=== PATIENT | female | born 1965 | race Caucasian/White ===

== ENCOUNTER 2018-02-18 07:00 | Emergency (ER) | payer MEDICAID, SELFPAY ==
[2018-02-18 07:12] VITALS: BP 158/85
[2018-02-18] MEDS ORDERED: Ondansetron 4 MG/2 ML SDV IVPUSH ONE (07:16)
[2018-02-18] MEDS ORDERED: Sodium Chloride 0.9% 10 ML Syringe FLUSH PRN (07:16)
--- NOTE | 2018-02-18 07:23 | EDM.PDOC ---
ED HPI GENERAL MEDICAL PROBLEM - General Chief Complaint: Neuro Symptoms/Deficits Stated Complaint: [facility] Time Seen by Provider: 02/18/18 07:09 Source of Information: Reports: Patient, EMS History Limitations: Reports: No Limitations - History of Present Illness INITIAL COMMENTS - FREE TEXT/NARRATIVE: The patient presents by [facility] for a seizure. She has a known history of seizures. She had a brain tumor that was removed many years ago. She is on keppra and dilantin. She has been having an upset stomach and diarrhea the past few days and she may have missed a few doses of her medications. She had a brief seizure last night. This morning she felt like she may have another seizure so she pushed her medical alert button to get some help. She did not have a seizure and EMS brought her in. She has some nausea this morning and she vomited. She has some mild left hand weakness but that is normal after her seizures. She has a headache. She has no fever but she does have chills. She has nausea. She has no abdominal pain. She has no dysuria, chest pain or shortness of breath. Onset: Sudden Duration: Day(s): (Last nigh) Location: Reports: Generalized Severity: Moderate Improves with: Reports: None Worsens with: Reports: None Associated Symptoms: Reports: Fever/Chills, Headaches, Nausea/Vomiting. Denies : Chest Pain, Cough, Shortness of Breath Headache Pain Score (Numeric/FACES): 10 - Related Data Allergies Allergy/AdvReac Type Severity Reaction Status Date / Time codeine Allergy Rash Verified 02/18/18 07:12 Home Meds: Home Meds LORazepam [Ativan] 1 mg PO ASDIRECTED PRN 05/03/16 [History] Furosemide [Lasix] 40 mg PO DAILY 05/07/16 [History] Levothyroxine 75 mcg PO ACBREAKFAST 05/07/16 [History] LORazepam [Ativan] 1 mg PO Q8H PRN #20 tab 02/18/18 [Rx] Ondansetron [Zofran ODT] 4 mg PO Q6H PRN #20 tab.dis 02/18/18 [Rx] Phenytoin Sodium Extended [Dilantin] 100 mg PO DAILY 02/18/18 [History] Phenytoin Sodium Extended [Dilantin] 200 mg PO BEDTIME 02/18/18 [History] levETIRAcetam [Keppra] 1,500 mg PO BID 02/18/18 [History] Past Medical History Other Cardiovascular History: Pt on lasix. Respiratory History: Reports: Sleep Apnea Other Respiratory History: Pt on CPAP machine. Dtr says settings are 2.0. 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 Endocrine/Metabolic History: Reports: Hypothyroidism Other Endocrine/Metabolic History: Levothyroxine; pt non-compliant. Oncologic (Cancer) History: Reports: Brain Other Oncologic History: Brain resection 1995. - Past Surgical History Head Surgeries/Procedures: Reports: Other (See Below) Female Surgical History: Reports: Section Social & Family History - Family History Oncologic: Reports: Breast - Living Situation & Occupation Living situation: Reports: Single, Alone Occupation: Disabled ED ROS GENERAL - Review of Systems Review Of Systems: See Below Constitutional: Reports: Chills. Denies: Fever HEENT: Reports: No Symptoms Respiratory: Reports: No Symptoms Cardiovascular: Reports: No Symptoms Endocrine: Reports: No Symptoms GI/Abdominal: Reports: Diarrhea, Nausea, Vomiting. Denies: Abdominal Pain : Reports: No Symptoms Musculoskeletal: Reports: No Symptoms Skin: Reports: No Symptoms Neurological: Reports: Headache - Physical Exam Exam: See Below Exam Limited By: No Limitations General Appearance: Alert, No Apparent Distress Ears: Normal External Exam Nose: Normal Inspection Head Exam: Atraumatic, Normocephalic Neck: Normal Inspection Respiratory/Chest: No Respiratory Distress, Lungs Clear, Normal Breath Sounds Cardiovascular: Regular Rate, Rhythm, No Edema, No Murmur GI/Abdominal: Soft, Non-Tender, No Organomegaly, No Mass Neuro Exam (Abbreviated): Alert, Oriented, No Motor/Sensory Deficits Course - Vital Signs Last Recorded V/S: Last Vital Signs Temp 98.0 F 02/18/18 07:00 Pulse 85 02/18/18 07:00 Resp 20 02/18/18 07:00 BP 158/85 H 02/18/18 07:00 Pulse Ox 99 02/18/18 07:00 - Orders/Labs/Meds Orders: Active Orders 24 hr Category Date Time Status Cardiac Monitoring [RC] . DIRECTED Care 02/18/18 07:16 Active Peripheral IV Care [RC] . DIRECTED Care 02/18/18 07:16 Active Sodium Chloride 0.9% [Normal Saline] 1,000 ml Med 02/18/18 07:30 Active IV .BOLUS Sodium Chloride 0.9% [Saline Flush] Med 02/18/18 07:16 Active 10 ml FLUSH ASDIRECTED PRN ED Antiemetic Medication Reflex [OM.PC] Stat Oth 02/18/18 07:16 Ordered Peripheral IV Insertion Adult [OM.PC] Stat Ot 02/18/18 07:16 Ordered Medication Orders Sodium Chloride (Normal Saline) 1,000 mls @ 1,000 mls/hr IV .BOLUS JESSICA Last Admin: 02/18/18 07:42 Dose: 1,000 mls/hr Sodium Chloride (Saline Flush) 10 ml FLUSH ASDIRECTED PRN PRN Reason: Keep Vein Open Last Admin: 02/18/18 07:35 Dose: 10 ml Labs: Laboratory Tests 02/18/18 02/18/18 Range/Units 08:15 08:15 WBC 10.04 (3.98-10.04) K/mm3 RBC 4.58 (3.98-5.22) M/mm3 Hgb 14.3 (11.2-15.7) gm/L Hct 41.8 (34.1-44.9) % MCV 91.3 (79.4-94.8) fl MCH 31.2 (25.6-32.2) pg MCHC 34.2 (32.2-35.5) g/dl RDW Std Deviation 45.1 (36.4-46.3) fL Plt Count 250 (182-369) K/mm3 MPV 8.7 L (9.4-12.3) fl Neut % (Auto) 73.9 H (34.0-71.1) % Lymph % (Auto) 18.9 L (19.3-51.7) % [place] % (Auto) 5.8 (4.7-12.5) % Eos % (Auto) 0.9 (0.7-5.8) Baso % (Auto) 0.2 (0.1-1.2) % Neut # (Auto) 7.42 H (1.56-6.13) K/mm3 Lymph # (Auto) 1.90 (1.18-3.74) K/mm3 [place] # (Auto) 0.58 H (0.24-0.36) K/mm3 Eos # (Auto) 0.09 (0.04-0.36) K/mm3 Baso # (Auto) 0.02 (0.01-0.08) K/mm3 Sodium 139 (136-145) mEq/L Potassium 4.5 (3.5-5.1) mEq/L Chloride 104 (98-107) mEq/L Carbon Dioxide 24 (21-32) mEq/L Anion Gap 15.5 H (5-15) BUN 17 (7-18) mg/dL Creatinine 0.9 (0.55-1.02) mg/dL Est Cr Clr Drug Dosing 57.83 mL/min Estimated GFR (MDRD) > 60 (>60) mL/min BUN/Creatinine Ratio 18.9 H (14-18) Glucose 134 H (74-106) mg/dL Calcium 8.6 (8.5-10.1) mg/dL Total Bilirubin 0.4 (0.2-1.0) mg/dL AST 25 (15-37) U/L ALT 26 (14-59) U/L Alkaline Phosphatase 117 H (46-116) U/L Total Protein 6.4 (6.4-8.2) g/dl Albumin 2.9 L (3.4-5.0) g/dl Globulin 3.5 gm/dL Albumin/Globulin Ratio 0.8 L (1-2) Lipase 76 (73-393) U/L Phenytoin 2.1 L (10.0-20.0) ug/mL Meds: Medications Generic Name Dose Route Start Last Admin Trade Name Freq PRN Reason Stop Dose Admin Sodium Chloride 1,000 mls @ 1,000 mls/hr 02/18/18 07:30 02/18/18 07:42 Normal Saline IV 1,000 mls/hr .BOLUS JESSICA Administration Sodium Chloride 10 ml 02/18/18 07:16 02/18/18 07:35 Saline Flush FLUSH 10 ml ASDIRECTED PRN Administration Keep Vein Open Discontinued Medications Generic Name Dose Route Start Last Admin Trade Name Freq PRN Reason Stop Dose Admin Lorazepam 1 mg 02/18/18 08:50 02/18/18 08:55 Ativan IVPUSH 02/18/18 08:51 1 mg ONETIME ONE Administration Ondansetron HCl 4 mg 02/18/18 07:16 02/18/18 07:40 Zofran IVPUSH 02/18/18 07:17 4 mg ONETIME ONE Administration - Re-Assessments/Exams Free Text/Narrative Re-Assessment/Exam: 02/18/18 07:23 I ordered an IV NS 1L bolus, zofran 4mg IV, labs and a UA. 02/18/18 09:11 Her CBC looks good. Her anion gap was slightly elevated at 15.5. Her glucose was elevated at 134. Her lipase was negative. Her dilantin level was 2.1. I will give her an extra dose of dilantin here. Departure - Departure Time of Disposition: 09:15 Disposition: Home, Self-Care 01 Condition: Good Clinical Impression: Seizure disorder, Seizure Nausea and vomiting Qualifiers: Vomiting type: unspecified Vomiting Intractability: unspecified Qualified Code( s): R11.2 - Nausea with vomiting, unspecified Diarrhea Qualifiers: Diarrhea type: unspecified type Qualified Code(s): R19.7 - Diarrhea, unspecified - Discharge Information Prescriptions: LORazepam [Ativan] 1 mg PO Q8H PRN #20 tab PRN Reason: Seizures Ondansetron [Zofran ODT] 4 mg PO Q6H PRN #20 tab.dis PRN Reason: Nausea\vomiting Referrals: Vicky Salazar, [facility] [Primary Care Provider] - 1 Week Forms: ED Department Discharge Additional Instructions: Take your medication as prescribed. Take zofran every 6 hours as needed for nausea and vomiting. I have refilled your ativan. Follow up with Yumiko Salazar this week. Please return if you are worse. - My Orders Last 24 Hours: My Active Orders 02/18/18 07:16 Cardiac Monitoring [RC] . DIRECTED Peripheral IV Care [RC] . DIRECTED Sodium Chloride 0.9% [Saline Flush] 10 ml FLUSH ASDIRECTED PRN ED Antiemetic Medication Reflex [OM.PC] Stat Peripheral IV Insertion Adult [OM.PC] Stat 02/18/18 07:30 Sodium Chloride 0.9% [Normal Saline] 1,000 ml IV .BOLUS - Assessment/Plan Last 24 Hours: My Active Orders 02/18/18 07:16 Cardiac Monitoring [RC] . DIRECTED Peripheral IV Care [RC] . DIRECTED Sodium Chloride 0.9% [Saline Flush] 10 ml FLUSH ASDIRECTED PRN ED Antiemetic Medication Reflex [OM.PC] Stat Peripheral IV Insertion Adult [OM.PC] Stat 02/18/18 07:30 Sodium Chloride 0.9% [Normal Saline] 1,000 ml IV .BOLUS
[2018-02-18] MEDS ORDERED: Sodium Chloride 0.9% 1,000 ML IV SCH (07:30)
[2018-02-18] MEDS ORDERED: LORazepam 2 MG/ML SDV IVPUSH ONE (08:50)
[2018-02-18] MEDS ORDERED: Phenytoin 100 MG Cap.ER PO ONE (09:12)
== END 2018-02-18 09:50 | disposition home or self-care (01) ==
LOC: JD.ED 07:00 → SUPCPDRO 07:00 → JD.ED 09:50
DX: G40.909 Epilepsy, unspecified, not intractable, without status epilepticus (principal); R11.2 Nausea with vomiting, unspecified; R19.7 Diarrhea, unspecified; E03.9 Hypothyroidism, unspecified; Z88.5 Allergy status to narcotic agent; Z79.899 Other long term (current) drug therapy
CPT/HCPCS: 36415; 80053; 80185; 83690; 85025; 96361; 96374; 96375; 99285; A9270; J2060; J2405; J7040; J7050

== ENCOUNTER 2018-02-20 16:47 | Inpatient (IN) | payer MEDICAID ==
[2018-02-20] MEDS ORDERED: Sodium Chloride 0.9% 10 ML Syringe FLUSH PRN (17:23)
[2018-02-20] MEDS ORDERED: LORazepam 2 MG/ML SDV IVPUSH ONE ×2 (17:23→22:50)
[2018-02-20] MEDS ORDERED: Sodium Chloride 0.9% 1,000 ML IV ONE (17:24)
--- NOTE | 2018-02-20 17:30 | EDM.PDOC ---
ED HPI GENERAL MEDICAL PROBLEM - General Chief Complaint: Neurological Problem Stated Complaint: [facility] Time Seen by Provider: 02/20/18 17:27 Source of Information: Reports: Patient History Limitations: Reports: No Limitations - History of Present Illness INITIAL COMMENTS - FREE TEXT/NARRATIVE: 52-year-old female arrives via [facility] ambulance service after having a seizure today. Patient reportedly had a grand mal seizure at home. Estimates a list of last less than a minute. She reports a slow normal seizure for her. 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 She is currently on Keppra and Dilantin, states she's been taking this as prescribed. She reports current symptoms of headache. Denies any fevers, chills, nausea, vomiting or diarrhea. Patient reports paralysis of her left arm. 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 She is left-handed. She states that she cannot take care of herself at home due to the paralysis. Patient was seen in the ER yesterday following a seiz Her workup was from unremarkable. Dilantin level is low at 2.1. She was discharged home, instructed to follow-up with her primary care provider. She sinus followed up with her primary care provider. Patient does not currently seen a neurologist. Patient reports that she was nonpermanent by herself. Sounds as if she has home health come and help her on occasion Family is currently in [place].. Headache Pain Score (Numeric/FACES): 7 - Related Data Allergies Allergy/AdvReac Type Severity Reaction Status Date / Time codeine Allergy Rash Verified 02/18/18 07:12 Home Meds: Home Meds LORazepam [Ativan] 1 mg PO ASDIRECTED PRN 05/03/16 [History] Furosemide [Lasix] 40 mg PO DAILY 05/07/16 [History] Levothyroxine 75 mcg PO ACBREAKFAST 05/07/16 [History] LORazepam [Ativan] 1 mg PO Q8H PRN #20 tab 02/18/18 [Rx] Phenytoin Sodium Extended [Dilantin] 100 mg PO DAILY 02/18/18 [History] Phenytoin Sodium Extended [Dilantin] 200 mg PO BEDTIME 02/18/18 [History] levETIRAcetam [Keppra] 1,500 mg PO BID 02/18/18 [History] Past Medical History HEENT History: Reports: Impaired Vision Other HEENT History: wears eyeglasses. Other Cardiovascular History: Pt on lasix. Respiratory History: Reports: Sleep Apnea Other Respiratory History: Pt on CPAP machine. Dtr says settings are 2.0. 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 Psychiatric History: Reports: Depression Endocrine/Metabolic History: Reports: Hypothyroidism Other Endocrine/Metabolic History: Levothyroxine; pt non-compliant. Oncologic (Cancer) History: Reports: Brain Other Oncologic History: Brain resection 1995. - Infectious Disease History Infectious Disease History: Reports: Chicken Pox, Shingles - Past Surgical History Other HEENT Surgeries/Procedures: Pt wears reading glasses at home. GI Surgical History: Reports: Cholecystectomy Female Surgical History: Reports: Section Other Musculoskeletal Surgeries/Procedures:: L sided weakness after seizures. Social & Family History - Family History Family Medical History: Noncontributory Oncologic: Reports: Breast - Tobacco Use Smoking Status *Q: Never Smoker - Caffeine Use Caffeine Use: Reports: Coffee - Recreational Drug Use Recreational Drug Use: No - Living Situation & Occupation Living situation: Reports: Single, Alone Occupation: Disabled ED ROS GENERAL - Review of Systems Review Of Systems: See Below Constitutional: Denies: Fever, Chills GI/Abdominal: Denies: Nausea, Vomiting Neurological: Reports: Headache, Seizure, Difficulty Walking - Physical Exam Exam: See Below Exam Limited By: No Limitations General Appearance: Alert, WD/WN, No Apparent Distress, Obese Eye Exam: Bilateral Eye: Normal Inspection, PERRL Ears: Normal External Exam Nose: Normal Inspection Throat/Mouth: Normal Inspection, Normal Voice, No Airway Compromise Respiratory/Chest: No Respiratory Distress, Lungs Clear, Normal Breath Sounds Cardiovascular: Normal Peripheral Pulses, Regular Rate, Rhythm, No Murmur Neuro Exam (Abbreviated): Alert, Oriented, Normal Cognition, 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 DIRECTED Care 02/20/18 17:24 Active Sodium Chloride 0.9% [Saline Flush] Med 02/20/18 17:23 Active 10 ml FLUSH ASDIRECTED PRN Peripheral IV Insertion Adult [OM.PC] Routine Oth 02/20/18 17:23 Ordered Medication Orders Sodium Chloride (Saline Flush) 10 ml FLUSH ASDIRECTED PRN PRN Reason: Keep Vein Open Last Admin: 02/20/18 17:48 Dose: 10 ml Labs: Laboratory Tests 02/20/18 02/20/18 Range/Units 18:09 18:09 WBC 12.47 H (3.98-10.04) K/mm3 RBC 4.63 (3.98-5.22) M/mm3 Hgb 14.5 (11.2-15.7) gm/L Hct 42.6 (34.1-44.9) % MCV 92.0 (79.4-94.8) fl MCH 31.3 (25.6-32.2) pg MCHC 34.0 (32.2-35.5) g/dl RDW Std Deviation 44.8 (36.4-46.3) fL Plt Count 263 (182-369) K/mm3 MPV 8.8 L (9.4-12.3) fl Neut % (Auto) 68.1 (34.0-71.1) % Lymph % (Auto) 22.1 (19.3-51.7) % [place] % (Auto) 8.3 (4.7-12.5) % Eos % (Auto) 1.0 (0.7-5.8) Baso % (Auto) 0.2 (0.1-1.2) % Neut # (Auto) 8.49 H (1.56-6.13) K/mm3 Lymph # (Auto) 2.75 (1.18-3.74) K/mm3 [place] # (Auto) 1.03 H (0.24-0.36) K/mm3 Eos # (Auto) 0.13 (0.04-0.36) K/mm3 Baso # (Auto) 0.03 (0.01-0.08) K/mm3 Manual Slide Review Normal smear Sodium 138 (136-145) mEq/L Potassium 4.4 (3.5-5.1) mEq/L Chloride 104 (98-107) mEq/L Carbon Dioxide 24 (21-32) mEq/L Anion Gap 14.4 (5-15) BUN 12 (7-18) mg/dL Creatinine 0.8 (0.55-1.02) mg/dL Est Cr Clr Drug Dosing 65.06 mL/min Estimated GFR (MDRD) > 60 (>60) mL/min BUN/Creatinine Ratio 15.0 (14-18) Glucose 126 H (74-106) mg/dL Calcium 8.9 (8.5-10.1) mg/dL Magnesium 1.8 (1.8-2.4) mg/dl Total Bilirubin 0.4 (0.2-1.0) mg/dL AST 21 (15-37) U/L ALT 29 (14-59) U/L Alkaline Phosphatase 111 (46-116) U/L Total Protein 7.2 (6.4-8.2) g/dl Albumin 3.0 L (3.4-5.0) g/dl Globulin 4.2 gm/dL Albumin/Globulin Ratio 0.7 L (1-2) Meds: Medications Generic Name Dose Route Start Last Admin Trade Name Isrrael PRN Reason Stop Dose Admin Sodium Chloride 10 ml 02/20/18 17:23 02/20/18 17:48 Saline Flush FLUSH 10 ml ASDIRECTED PRN Administration Keep Vein Open Discontinued Medications Generic Name Dose Route Start Last Admin Trade Name Freq PRN Reason Stop Dose Admin Sodium Chloride 1,000 mls @ 999 mls/hr 02/20/18 17:24 02/20/18 17:45 Normal Saline IV 02/20/18 18:24 999 mls/hr ONETIME ONE Administration Levetiracetam 1,500 mg/ Sodium 115 mls @ 400 mls/hr 02/20/18 22:47 02/20/18 23:14 Chloride IV 02/20/18 23:01 400 mls/hr ONETIME ONE Administration Phenytoin Sodium 200 mg/ 104 mls @ 416 mls/hr 02/20/18 22:57 Sodium Chloride IV 02/20/18 22:58 ONETIME ONE Ketorolac Tromethamine 15 mg 02/20/18 18:36 02/20/18 18:44 Toradol IVPUSH 02/20/18 18:37 15 mg ONETIME ONE Administration Lorazepam 1 mg 02/20/18 17:23 02/20/18 17:47 Ativan IVPUSH 02/20/18 17:24 1 mg ONETIME ONE Administration Lorazepam 1 mg 02/20/18 22:50 02/20/18 23:14 Ativan IVPUSH 02/20/18 22:51 1 mg ONETIME ONE Administration - Re-Assessments/Exams Free Text/Narrative Re-Assessment/Exam: 02/20/18 21:26 I asked nursing staff to get patient up to walk. They were able to get her to use the commode. She shuffled cautiously. Do not use her left hand but was able to flex and extend her left arm. I spoke with Dr. Cates, hospitalist extrusion die corrector, recommended transfer to [facility] in [place] due to concerns over length of stay with previous visits as well as recommendation for a neurology consult. 02/20/18 23:19 The patient has not had a seizure since entering the ER. She has been resting comfortably. Her headache is resolved. I spoke with Dr. Phan, hospitalist , and Dr. Knowles, neurologist, at [facility] in [place]. Both these providers did not feel that the patient would get\ any additional benefits by coming to [place] and felt that admission at our hospital would be appropriate. Recommended giving her Keppra and Dilantin IV she will tolerated with her recent vomiting diarrhea. Also recommended giving additional 1 mg IV Ativan. spoke with Dr. Jacobs, he agrees the admission. Patient will be admitted for her Benji's paralysis. Departure - Departure Time of Disposition: 23:21 Disposition: Admitted As Inpatient 66 Condition: Fair Clinical Impression: Seizure disorder, Morbid obesity, Benji's paralysis - Discharge Information Referrals: Vicky Salazar NP [Primary Care Provider] - Forms: ED Department Discharge Additional Instructions: Patient be admitted to [facility] under Dr. Cates for her Benji's paralysis. - My Orders Last 24 Hours: My Active Orders 02/20/18 17:23 Sodium Chloride 0.9% [Saline Flush] 10 ml FLUSH ASDIRECTED PRN Peripheral IV Insertion Adult [OM.PC] Routine 02/20/18 17:24 Peripheral IV Care [RC] . DIRECTED - Assessment/Plan Last 24 Hours: My Active Orders 02/20/18 17:23 Sodium Chloride 0.9% [Saline Flush] 10 ml FLUSH ASDIRECTED PRN Peripheral IV Insertion Adult [OM.PC] Routine 02/20/18 17:24 Peripheral IV Care [RC] . DIRECTED
[2018-02-20] MEDS ORDERED: Ketorolac 15 MG/ML SDV IVPUSH ONE (18:36)
[2018-02-20] MEDS ORDERED: levETIRAcetam 1,500 MG in Sodium Chloride 0.9% 100 ML IV ONE (22:47)
[2018-02-20] MEDS ORDERED: SODIUM CHLORIDE 0.9% IV ONE (22:57)
[2018-02-20] MEDS ORDERED: PHENYTOIN IV ONE (22:57)
--- NOTE | 2018-02-20 23:01 | PCM.HP ---
H&P History of Present Illness - General Date of Service: 02/20/18 Admit Problem/Dx: Seizure Disorder Source of Information: Patient, Old Records, Provider, RN Notes Reviewed, Significant Other History Limitations: Reports: Physical Impairment - History of Present Illness Initial Comments - Free Text/Narative: This is a 52-year-old white female with past medical history of seizure disorder 2/2 Astrocytoma S/p Resection, Hypothyroidism, Hx/o Benji's Paralysis, Post Seizure Headaches , Chronic Pain Syndrome and Morbid Obesity who comes in for evaluation seizure attack today associated with a headache. She reports of a grand mal seizure at home that lasted less than a minute. She takes Keppra and Dilatin for maintenance medications. She states, she has been taking them everyday. Additionally, she reports having left upper extremity paralysis after seizures. Patient was seen in ED yesterday following an acute seizure. Her work up was notable for a low level of Dilatin at 2.1. She was treated accordingly and was told to follow up with her PCP. Patient lives alone and does not have any support at home. She has no family here around the area. Her initial workup in the emergency department shows a CBC remarkable for WBC of 12.47, MPV of 8.8, neutrophil counts of 8.49, and monocyte count of 1.03. Her chemistry is remarkable for glucose of 126, and albumin of 3. She is being admitted for treatment of acute seizure disorder and Benji's Paralysis. She is full code. Headache Pain Score (Numeric/FACES): 7 - Related Data Allergies/Adverse Reactions: Allergies Allergy/AdvReac Type Severity Reaction Status Date / Time latex Allergy Unknown Rash Verified 02/21/18 05:03 codeine Allergy Rash Verified 02/18/18 07:12 Home Medications: Home Meds Furosemide [Lasix] 40 mg PO DAILY 05/07/16 [History] Levothyroxine 75 mcg PO ACBREAKFAST 05/07/16 [History] Phenytoin Sodium Extended [Dilantin] 200 mg PO BEDTIME 02/18/18 [History] levETIRAcetam [Keppra] 1,500 mg PO BID 02/18/18 [History] LORazepam 1 mg PO BID PRN 02/21/18 [History] Past Medical History HEENT History: Reports: Impaired Vision Other HEENT History: wears eyeglasses. Other Cardiovascular History: Pt on lasix. Respiratory History: Reports: Sleep Apnea Other Respiratory History: Pt on CPAP machine. Dtr says settings are 2.0. 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 Psychiatric History: Reports: Depression Endocrine/Metabolic History: Reports: Hypothyroidism Other Endocrine/Metabolic History: Levothyroxine; pt non-compliant. Oncologic (Cancer) History: Reports: Brain Other Oncologic History: Brain resection 1995. - Infectious Disease History Infectious Disease History: Reports: Chicken Pox, Shingles - Past Surgical History Other HEENT Surgeries/Procedures: Pt wears reading glasses at home. GI Surgical History: Reports: Cholecystectomy Female Surgical History: Reports: Section Other Musculoskeletal Surgeries/Procedures:: L sided weakness after seizures. Social & Family History - Family History Family Medical History: Noncontributory Oncologic: Reports: Breast - Tobacco Use Smoking Status *Q: Never Smoker - Caffeine Use Caffeine Use: Reports: Coffee - Recreational Drug Use Recreational Drug Use: No - Living Situation & Occupation Living situation: Reports: Single, Alone Occupation: Disabled H&P Review of Systems - Review of Systems: Review Of Systems: See Below General: Reports: Weakness. Denies: Fever, Chills, Fatigue HEENT: Reports: No Symptoms Pulmonary: Reports: No Symptoms Cardiovascular: Denies: Chest Pain, Palpitations, Dyspnea on Exertion, Lightheadedness Gastrointestinal: Denies: Abdominal Pain, Decreased Appetite, Nausea, Vomiting Genitourinary: Reports: No Symptoms Musculoskeletal: Reports: No Symptoms Skin: Denies: Pallor, Diaphoresis, Bruising, Rash, Lesions Psychiatric: Denies: Depression, Anxiety, Agitation, Hallucinations Neurological: Reports: Headache, Seizure, Difficulty Walking, Weakness (left arm ), Gait Disturbance. Denies: Confusion, Dizziness, Numbness, Pre-Existing Deficit, Tingling, Tremors, Trouble Speaking, Change in Speech Hematologic/Lymphatic: Reports: No Symptoms Immunologic: Reports: No Symptoms Exam - Exam Exam: See Below - Vital Signs Vital Signs: Last Vital Signs Temp 37.2 C 02/20/18 16:54 Pulse 94 02/20/18 16:54 Resp 24 H 02/20/18 16:54 BP 155/89 H 02/20/18 16:54 Pulse Ox 97 02/20/18 16:54 Weight: 181.437 kg - Exam General: Alert, Oriented, Cooperative, Other (Morbidly Obese). No: Mild Distress HEENT: Conjunctiva Clear, EACs Clear, Hearing Intact, Mucosa Moist & [place], Nares Patent, Normal Nasal Septum, Posterior Pharynx Clear, Pupils Equal, Pupils Reactive, Other (right sided bald spot in her head ) Neck: Supple, Trachea Midline Lungs: Clear to Auscultation, Normal Respiratory Effort Cardiovascular: Regular Rate, Regular Rhythm GI/Abdominal Exam: Normal Bowel Sounds, Soft, Non-Tender, No Organomegaly, No Distention, No Abnormal Bruit, No Mass (Female) Exam: Deferred Rectal (Female) Exam: Deferred Back Exam: Normal Inspection, Decreased Range of Motion Extremities: Normal Inspection, Normal Range of Motion, Non-Tender, No Pedal Edema, Normal Capillary Refill Peripheral Pulses: 2+: Dorsalis Pedis (L), Dorsalis Pedis (R) Skin: Warm, Dry, Intact. No: Rash, Ecchymosis Neuro Extensive - Mental Status: Oriented x3, Normal Cognition, Memory Intact Neuro Extensive - Motor, Sensory, Reflexes: CN II-XII Intact (limited due to body habitus and benji's paralysis but fairly intact), Abnormal Gait, Pronator Drift (L), Abnormal Motor (left arm) Psychiatric: Alert, Normal Affect, Normal Mood - Patient Data Lab Results Last 24 hrs: Laboratory Results - last 24 hr 02/20/18 02/20/18 Range/Units 18:09 18:09 WBC 12.47 H (3.98-10.04) K/mm3 RBC 4.63 (3.98-5.22) M/mm3 Hgb 14.5 (11.2-15.7) gm/L Hct 42.6 (34.1-44.9) % MCV 92.0 (79.4-94.8) fl MCH 31.3 (25.6-32.2) pg MCHC 34.0 (32.2-35.5) g/dl RDW Std Deviation 44.8 (36.4-46.3) fL Plt Count 263 (182-369) K/mm3 MPV 8.8 L (9.4-12.3) fl Neut % (Auto) 68.1 (34.0-71.1) % Lymph % (Auto) 22.1 (19.3-51.7) % [place] % (Auto) 8.3 (4.7-12.5) % Eos % (Auto) 1.0 (0.7-5.8) Baso % (Auto) 0.2 (0.1-1.2) % Neut # (Auto) 8.49 H (1.56-6.13) K/mm3 Lymph # (Auto) 2.75 (1.18-3.74) K/mm3 [place] # (Auto) 1.03 H (0.24-0.36) K/mm3 Eos # (Auto) 0.13 (0.04-0.36) K/mm3 Baso # (Auto) 0.03 (0.01-0.08) K/mm3 Manual Slide Review Normal smear Sodium 138 (136-145) mEq/L Potassium 4.4 (3.5-5.1) mEq/L Chloride 104 (98-107) mEq/L Carbon Dioxide 24 (21-32) mEq/L Anion Gap 14.4 (5-15) BUN 12 (7-18) mg/dL Creatinine 0.8 (0.55-1.02) mg/dL Est Cr Clr Drug Dosing 65.06 mL/min Estimated GFR (MDRD) > 60 (>60) mL/min BUN/Creatinine Ratio 15.0 (14-18) Glucose 126 H (74-106) mg/dL Calcium 8.9 (8.5-10.1) mg/dL Magnesium 1.8 (1.8-2.4) mg/dl Total Bilirubin 0.4 (0.2-1.0) mg/dL AST 21 (15-37) U/L ALT 29 (14-59) U/L Alkaline Phosphatase 111 (46-116) U/L Total Protein 7.2 (6.4-8.2) g/dl Albumin 3.0 L (3.4-5.0) g/dl Globulin 4.2 gm/dL Albumin/Globulin Ratio 0.7 L (1-2) Result Diagrams: 02/21/18 06:25 02/21/18 06:25 Problem List Initiated/Reviewed/Updated: Yes Orders Last 24hrs: Active Orders 24 hr Category Date Time Status Peripheral IV Care [RC] . DIRECTED Care 02/20/18 17:24 Active Sodium Chloride 0.9% [Saline Flush] Med 02/20/18 17:23 Active 10 ml FLUSH ASDIRECTED PRN levETIRAcetam [Keppra] 1,500 mg Med 02/20/18 22:47 Active Sodium Chloride 0.9% [Normal Saline] 100 ml IV ONETIME Peripheral IV Insertion Adult [OM.PC] Routine Oth 02/20/18 17:23 Ordered Medication Orders Levetiracetam 1,500 mg/ Sodium (Chloride) 115 mls @ 400 mls/hr IV ONETIME ONE Stop: 02/20/18 23:01 Sodium Chloride (Saline Flush) 10 ml FLUSH ASDIRECTED PRN PRN Reason: Keep Vein Open Last Admin: 02/20/18 17:48 Dose: 10 ml Assessment/Plan Comment:: Assessment/Plan: Acute: Seizure Disorder - Hx/o Non compliance - Documented low Dilantin level from ED yesterday - PRN Ativan for Abortive Seizures - Resume Home Meds Benji's Paralysis - She lives own w/o any help - Supportive care - PT/OT consult Chronic: Impaired Vision TABBY on CPAP Hypothyroidism Depression Post Seizure VALENCIA Hx/o Medical Non-compliance Astrocytoma S/p Brain Resection 1995 Morbid Obesity with BMI 73.2 Plan: Admit to [facility] Resume Home Meds Routine AM Labs High Fall Risk Aspiration/Seizure Precautions PT/OT consult SW/CM for d/c planning Code status:1
[2018-02-20] MEDS ORDERED: Metoprolol Tartrate 5 MG/5 ML SDV IVPUSH PRN (23:38)
[2018-02-20] MEDS ORDERED: LORazepam 1 MG Tab PO PRN ×2 (23:38)
[2018-02-20] MEDS ORDERED: hydrALAZINE 20 MG/ML SDV IVPUSH PRN (23:38)
[2018-02-20] MEDS ORDERED: Docusate Sodium 100 MG Cap PO PRN (23:39)
[2018-02-20] MEDS ORDERED: Polyethylene Glycol 3350 Powder 17 GM Packet PO PRN (23:39)
[2018-02-20] MEDS ORDERED: Ondansetron 4 MG/2 ML SDV IV PRN (23:39)
[2018-02-20] MEDS ORDERED: Promethazine 12.5 MG in Sodium Chloride 0.9% 50 ML IV PRN (23:39)
[2018-02-20] MEDS ORDERED: Acetaminophen/HYDROcodone 325-5 MG Tab PO PRN (23:39)
[2018-02-20] MEDS ORDERED: LORazepam 2 MG/ML SDV IV PRN (23:39)
[2018-02-20] MEDS ORDERED: HYDROmorphone 0.5 MG/0.5 ML SYRINGE IVPUSH PRN (23:39)
[2018-02-20] MEDS ORDERED: Albuterol/Ipratropium 3.0-0.5 MG/3 ML Neb Soln NEB PRN (23:39)
[2018-02-21] MEDS: Levothyroxine 75 MCG Tab PO SCH (05:48)
[2018-02-21] MEDS: Acetaminophen 325 MG Tab PO PRN ×2 (06:35→12:44)
--- NOTE | 2018-02-21 06:45 | PCM.PN ---
- General Info Date of Service: 02/21/18 Admission Dx/Problem (Free Text): Seizure Disorder Subjective Update: Follow Up Functional Status: Reports: Pain Controlled, Tolerating Diet, Ambulating, Urinating. Denies: New Symptoms - Review of Systems General: Reports: Weakness, Fatigue. Denies: Fever, Malaise, Chills HEENT: Reports: No Symptoms Pulmonary: Denies: Shortness of Breath Cardiovascular: Denies: Chest Pain, Palpitations, Dyspnea on Exertion, Lightheadedness Gastrointestinal: Denies: Abdominal Pain, Nausea, Vomiting Genitourinary: Reports: No Symptoms Musculoskeletal: Reports: No Symptoms Skin: Denies: Cyanosis, Pallor, Diaphoresis, Rash Neurological: Reports: Seizure, Difficulty Walking, Weakness, Gait Disturbance. Denies: Confusion, Dizziness, Headache, Pre-Existing Deficit, Syncope, Tremors , Trouble Speaking, Change in Speech Psychiatric: Denies: No Symptoms, Depression, Mood Lability, Hallucinations Systems Review Comment:: No significant overnight or acute issues. However she did have 2 small seizures last night. Her morning labs are stable and afebrile. She has no complaints this morning. - Patient Data Vitals - Most Recent: Last Vital Signs Temp 37.2 C 02/20/18 16:54 Pulse 92 02/21/18 00:32 Resp 18 02/21/18 00:32 BP 154/85 H 02/21/18 00:32 Pulse Ox 95 02/21/18 00:32 Weight - Most Recent: 153.586 kg I&O - Last 24 Hours: Intake & Output 02/20/18 02/20/18 02/21/18 14:59 22:59 06:59 Intake Total 200 Output Total 100 Balance 100 Lab Results Last 24 Hours: Laboratory Results - last 24 hr 02/20/18 02/20/18 Range/Units 18:09 18:09 WBC 12.47 H (3.98-10.04) K/mm3 RBC 4.63 (3.98-5.22) M/mm3 Hgb 14.5 (11.2-15.7) gm/L Hct 42.6 (34.1-44.9) % MCV 92.0 (79.4-94.8) fl MCH 31.3 (25.6-32.2) pg MCHC 34.0 (32.2-35.5) g/dl RDW Std Deviation 44.8 (36.4-46.3) fL Plt Count 263 (182-369) K/mm3 MPV 8.8 L (9.4-12.3) fl Neut % (Auto) 68.1 (34.0-71.1) % Lymph % (Auto) 22.1 (19.3-51.7) % [place] % (Auto) 8.3 (4.7-12.5) % Eos % (Auto) 1.0 (0.7-5.8) Baso % (Auto) 0.2 (0.1-1.2) % Neut # (Auto) 8.49 H (1.56-6.13) K/mm3 Lymph # (Auto) 2.75 (1.18-3.74) K/mm3 [place] # (Auto) 1.03 H (0.24-0.36) K/mm3 Eos # (Auto) 0.13 (0.04-0.36) K/mm3 Baso # (Auto) 0.03 (0.01-0.08) K/mm3 Manual Slide Review Normal smear Sodium 138 (136-145) mEq/L Potassium 4.4 (3.5-5.1) mEq/L Chloride 104 (98-107) mEq/L Carbon Dioxide 24 (21-32) mEq/L Anion Gap 14.4 (5-15) BUN 12 (7-18) mg/dL Creatinine 0.8 (0.55-1.02) mg/dL Est Cr Clr Drug Dosing 65.06 mL/min Estimated GFR (MDRD) > 60 (>60) mL/min BUN/Creatinine Ratio 15.0 (14-18) Glucose 126 H (74-106) mg/dL Calcium 8.9 (8.5-10.1) mg/dL Magnesium 1.8 (1.8-2.4) mg/dl Total Bilirubin 0.4 (0.2-1.0) mg/dL AST 21 (15-37) U/L ALT 29 (14-59) U/L Alkaline Phosphatase 111 (46-116) U/L Total Protein 7.2 (6.4-8.2) g/dl Albumin 3.0 L (3.4-5.0) g/dl Globulin 4.2 gm/dL Albumin/Globulin Ratio 0.7 L (1-2) Med Orders - Current: Current Medications Acetaminophen (Tylenol) 650 mg PO Q4H PRN PRN Reason: Pain (Mild 1-3)/fever Last Admin: 02/21/18 06:35 Dose: 650 mg Hydrocodone Bitart/Acetaminophen (Henry 325-5 Mg) 1 tab PO Q4H PRN PRN Reason: Pain (moderate 4-6) Albuterol/Ipratropium (Duoneb 3.0-0.5 Mg/3 Ml) 3 ml NEB Q4H PRN PRN Reason: Shortness Of Breath/wheezing Bisacodyl (Dulcolax) 5 mg PO DAILY PRN PRN Reason: Constipation Docusate Sodium (Colace) 100 mg PO BID PRN PRN Reason: Constipation Enoxaparin Sodium (Lovenox) 40 mg SUBCUT Q12H JESSICA Furosemide (Lasix) 40 mg PO DAILY JESSICA Hydralazine HCl (Apresoline) 20 mg IVPUSH Q4H PRN PRN Reason: Hypertension Hydromorphone HCl (Dilaudid) 0.25 mg IVPUSH Q2H PRN PRN Reason: Pain (severe 7-10) Promethazine HCl 12.5 mg/ (Sodium Chloride) 50.5 mls @ 100 mls/hr IV Q6H PRN PRN Reason: Nausea/Vomiting Levetiracetam (Keppra) 1,500 mg PO BID [facility] Levothyroxine Sodium (Levothyroxine) 75 mcg PO ACBREAKFAST [facility] Last Admin: 02/21/18 05:48 Dose: 75 mcg Lorazepam (Ativan) 1 mg PO Q8H PRN PRN Reason: Seizures Lorazepam (Ativan) 1 mg PO ASDIRECTED PRN PRN Reason: Seizures Lorazepam (Ativan) 2 mg IVPUSH Q4H PRN PRN Reason: Seizures Lorazepam (Ativan) 1 - 3 mg IV Q4H PRN; Protocol PRN Reason: Withdrawal Symptoms Magnesium Oxide (Magnesium Oxide) 400 mg PO ONETIME ONE Stop: 02/21/18 23:46 Magnesium Sulfate (Pharmacy To Dose - Magnesium Replacement) 1 dose .XX ASDIRECTED [facility] Metoprolol Tartrate (Lopressor) 5 mg IVPUSH Q4H PRN PRN Reason: Tachycardia Ondansetron HCl (Zofran) 4 mg IV Q6H PRN PRN Reason: Nausea/Vomiting Phenytoin Sodium (Phenytoin) 200 mg PO BEDTIME JESSICA Phenytoin Sodium (Phenytoin) 100 mg PO DAILY JESSICA Polyethylene Glycol (Miralax) 17 gm PO DAILY PRN PRN Reason: Constipation Potassium Chloride (Pharmacy To Dose - Potassium Replacement) 1 dose .XX ASDIRECTED [facility] Senna/Docusate Sodium (Senna Plus) 1 tab PO BID PRN PRN Reason: Constipation Sodium Chloride (Saline Flush) 10 ml FLUSH ASDIRECTED PRN PRN Reason: Keep Vein Open Last Admin: 02/20/18 17:48 Dose: 10 ml Discontinued Medications Sodium Chloride (Normal Saline) 1,000 mls @ 999 mls/hr IV ONETIME ONE Stop: 02/20/18 18:24 Last Admin: 02/20/18 17:45 Dose: 999 mls/hr Levetiracetam 1,500 mg/ Sodium (Chloride) 115 mls @ 400 mls/hr IV ONETIME ONE Stop: 02/20/18 23:01 Last Admin: 02/20/18 23:14 Dose: 400 mls/hr Phenytoin Sodium 200 mg/ (Sodium Chloride) 104 mls @ 416 mls/hr IV ONETIME ONE Stop: 02/20/18 22:58 Last Admin: 02/20/18 23:39 Dose: 416 mls/hr Ketorolac Tromethamine (Toradol) 15 mg IVPUSH ONETIME ONE Stop: 02/20/18 18:37 Last Admin: 02/20/18 18:44 Dose: 15 mg Lorazepam (Ativan) 1 mg IVPUSH ONETIME ONE Stop: 02/20/18 17:24 Last Admin: 02/20/18 17:47 Dose: 1 mg Lorazepam (Ativan) 1 mg IVPUSH ONETIME ONE Stop: 02/20/18 22:51 Last Admin: 02/20/18 23:14 Dose: 1 mg - Exam General: Alert, Oriented, Cooperative, No Acute Distress, Other (Morbidly Obese) HEENT: Pupils Equal, Pupils Reactive, Mucous Membr. Moist/[place] Neck: Supple, Trachea Midline, No JVD, No Thyromegaly, Other (short and thick) Lungs: Clear to Auscultation, Normal Respiratory Effort, Decreased Breath Sounds Cardiovascular: Regular Rate, Regular Rhythm GI/Abdominal Exam: Normal Bowel Sounds, Soft, Non-Tender, No Organomegaly, No Distention, No Abnormal Bruit, No Mass, Other (Obese) (Female) Exam: Deferred Back Exam: Normal Inspection, Decreased Range of Motion Extremities: Normal Inspection, Normal Range of Motion, Non-Tender, No Pedal Edema, Normal Capillary Refill Peripheral Pulses: 2+: Dorsalis Pedis (L), Dorsalis Pedis (R) Skin: Warm, Dry, Intact Neurological: No New Focal Deficit, Other (still weak and flaccid on left upper extremity). No: Normal Gait, Strength Equal Bilateral, Reflexes Equal Bilateral Psy/Mental Status: Alert, Normal Affect, Normal Mood - Problem List Review Problem List Initiated/Reviewed/Updated: Yes - My Orders Last 24 Hours: My Active Orders 02/20/18 23:38 LORazepam [Ativan] 1 mg PO ASDIRECTED PRN LORazepam [Ativan] 1 mg PO Q8H PRN LORazepam [Ativan] 2 mg IVPUSH Q4H PRN Metoprolol Tartrate [Lopressor] 5 mg IVPUSH Q4H PRN hydrALAZINE [Apresoline] 20 mg IVPUSH Q4H PRN 02/20/18 23:39 Height and Weight [RC] 04 Oxygen Therapy [RC] PRN Up With Assistance [RC] QSHIFT Up ad [place] [RC] QSHIFT VTE/DVT Education [RC] DAILY Vital Signs [RC] Q4HR Acetaminophen [Tylenol] 650 mg PO Q4H PRN Acetaminophen/HYDROcodone [Henry 325-5 MG] 1 tab PO Q4H PRN Albuterol/Ipratropium [DuoNeb 3.0-0.5 MG/3 ML] 3 ml NEB Q4H PRN Bisacodyl [Dulcolax] 5 mg PO DAILY PRN Docusate Sodium [Colace] 100 mg PO BID PRN Docusate Sodium/Sennosides [Senna Plus] 1 tab PO BID PRN HYDROmorphone [Dilaudid] 0.25 mg IVPUSH Q2H PRN LORazepam [Ativan] 1 - 3 mg IV Q4H PRN Ondansetron [Zofran] 4 mg IV Q6H PRN Polyethylene Glycol 3350 [MiraLAX] 17 gm PO DAILY PRN Promethazine [Phenergan] 12.5 mg Sodium Chloride 0.9% [Normal Saline] 50 ml IV Q6H Resuscitation Status Routine 02/20/18 23:41 RT Aerosol Therapy [RC] DAILY Consult to Case Management [CONS] Routine Consult to Die Cutting Machine Operator [CONS] Routine Consult to Instructor Robotics [CONS] Routine OT Evaluation and Treatment [CONS] Routine PT Evaluation and Treatment [CONS] Routine 02/20/18 23:45 Magnesium Rep Pharmacy to Dose [Pharmacy to Dose - Magnesium Replacement] 1 dose .XX ASDIRECTED Potassium Rep Pharmacy to Dose [Pharmacy to Dose - Potassium Replacement] 1 dose .XX ASDIRECTED 02/20/18 Dinner Regular Diet [DIET] 02/21/18 05:11 BASIC METABOLIC PANEL,BMP [CHEM] AM CBC WITH AUTO DIFF [HEME] AM MAGNESIUM [CHEM] AM 02/21/18 06:00 Levothyroxine 75 mcg PO ACBREAKFAST 02/21/18 09:00 Enoxaparin [Lovenox] 40 mg SUBCUT Q12H Furosemide [Lasix] 40 mg PO DAILY Phenytoin 100 mg PO DAILY levETIRAcetam [Keppra] 1,500 mg PO BID 02/21/18 21:00 Phenytoin 200 mg PO BEDTIME 02/22/18 05:11 BASIC METABOLIC PANEL,BMP [CHEM] AM MAGNESIUM [CHEM] AM 02/23/18 05:11 BASIC METABOLIC PANEL,BMP [CHEM] AM MAGNESIUM [CHEM] AM 02/24/18 05:11 BASIC METABOLIC PANEL,BMP [CHEM] AM MAGNESIUM [CHEM] AM - Plan Plan:: Assessment/Plan: Acute: Seizure Disorder - Hx/o Non compliance - Documented low Dilantin level on last ED visit prior to this admission - 2 small seizures last night - PRN Ativan for Abortive Seizures - Resume Home Meds Benji's Paralysis - She lives own w/o any help - Supportive care - PT/OT consult Generalized Weakness - She requires assistance due to Morbid Obesity Chronic: Impaired Vision TABBY on CPAP Hypothyroidism Depression Post Seizure VALENCIA Hx/o Medical Non-compliance Astrocytoma S/p Brain Resection 1995 Morbid Obesity with BMI 73.2 Plan: She is otherwise clinically stable. She is not safe to go home alone by herself. Routine AM Labs High Fall Risk Aspiration/Seizure Precautions Continue PT/OT SW/CM for d/c planning Code status:1
[2018-02-21] MEDS: Phenytoin 100 MG Cap.ER PO SCH ×2 (09:01→09:14)
[2018-02-21] MEDS: levETIRAcetam 500 MG Tab PO SCH ×2 (09:01→20:28)
[2018-02-21] MEDS: Furosemide 40 MG Tab PO SCH (09:02)
[2018-02-21] MEDS: Enoxaparin 40 MG/0.4 ML Syringe SUBCUT SCH ×2 (09:02→20:29)
[2018-02-21] MEDS: LORazepam 2 MG/ML SDV IVPUSH PRN ×2 (18:55→19:03)
[2018-02-21] MEDS ORDERED: LORazepam 2 MG/ML SDV IVPUSH ONE (19:08)
[2018-02-21] MEDS ORDERED: FOSPHENYTOIN IV ONE (19:12)
[2018-02-21] MEDS ORDERED: SODIUM CHLORIDE IV ONE (19:12)
[2018-02-21] MEDS ORDERED: [UNRECOGNIZED DRUG - OTHER] IV ONE (19:12)
[2018-02-21] MEDS ORDERED: Diazepam 5 MG/ML 10 ML Vial MDV IV STA (19:19)
[2018-02-21] MEDS ORDERED: levETIRAcetam 1,500 MG in Sodium Chloride 0.9% 100 ML IV ONE (19:26)
[2018-02-21] MEDS ORDERED: Phenytoin 100 MG Cap.ER PO SCH (21:00)
[2018-02-21] MEDS ORDERED: Magnesium Oxide 400 MG Tab PO ONE (23:45)
[2018-02-22] MEDS: LORazepam 2 MG/ML SDV IVPUSH PRN ×2 (04:27→15:15)
[2018-02-22] MEDS: Levothyroxine 75 MCG Tab PO SCH (05:35)
--- NOTE | 2018-02-22 07:39 | PCM.SN ---
- Free Text/Narrative Note: 02/22/18 Start 0715 End 0730 IV start on med surg Called to med surg for a difficult IV start. Right forearm prepped with chloraprep. 20ga 1.88inch angiocath placed in right forearm. Good blood return and flushes well. Secured with sterile tegaderm and tape. Report to RN. Harjinder Jennings, CELL TUBER MACHINE
--- NOTE | 2018-02-22 08:05 | PCM.PN ---
- General Info Date of Service: 02/22/18 Admission Dx/Problem (Free Text): Seizure Disorder Subjective Update: Follow Up Functional Status: Reports: Pain Controlled, Tolerating Diet, Ambulating, Urinating. Denies: New Symptoms - Review of Systems General: Reports: Fatigue. Denies: Fever, Weakness, Malaise, Chills HEENT: Reports: No Symptoms Pulmonary: Denies: Shortness of Breath, Pleuritic Chest Pain, Cough Cardiovascular: Denies: Chest Pain, Dyspnea on Exertion Gastrointestinal: Denies: Abdominal Pain, Nausea, Vomiting Genitourinary: Reports: No Symptoms Musculoskeletal: Reports: No Symptoms Skin: Denies: Cyanosis, Mottled, Pallor, Diaphoresis, Pruritis Neurological: Reports: Gait Disturbance Psychiatric: Reports: Confusion. Denies: Depression, Anxiety, Agitation, Hallucinations Systems Review Comment:: Patient had an epileptic seizure last night. She is noncompliant with medication and on admission she refused on of her anti-seizure medication. Her Dilatin level was 4.4 (low) last night. Her Mg is low at 1.7 this morning. - Patient Data Vitals - Most Recent: Last Vital Signs Temp 37.1 C 02/22/18 07:39 Pulse 89 02/22/18 07:39 Resp 20 02/22/18 07:39 BP 141/81 H 02/22/18 07:39 Pulse Ox 100 02/22/18 07:39 Weight - Most Recent: 153.087 kg I&O - Last 24 Hours: Intake & Output 02/21/18 02/22/18 02/22/18 22:59 06:59 14:59 Intake Total 1480 300 Output Total 450 500 Balance 1030 -200 Lab Results Last 24 Hours: Laboratory Results - last 24 hr 02/21/18 02/22/18 Range/Units 19:45 06:54 Sodium 137 (136-145) mEq/L Potassium 4.4 (3.5-5.1) mEq/L Chloride 104 (98-107) mEq/L Carbon Dioxide 22 (21-32) mEq/L Anion Gap 15.4 H (5-15) BUN 12 (7-18) mg/dL Creatinine 0.9 (0.55-1.02) mg/dL Est Cr Clr Drug Dosing 57.83 mL/min Estimated GFR (MDRD) > 60 (>60) mL/min BUN/Creatinine Ratio 13.3 L (14-18) Glucose 125 H (74-106) mg/dL Calcium 8.9 (8.5-10.1) mg/dL Magnesium 1.6 L (1.8-2.4) mg/dl Phenytoin 4.4 L (10.0-20.0) ug/mL Med Orders - Current: Current Medications Acetaminophen (Tylenol) 650 mg PO Q4H PRN PRN Reason: Pain (Mild 1-3)/fever Last Admin: 02/21/18 12:44 Dose: 650 mg Hydrocodone Bitart/Acetaminophen ([place] 325-5 Mg) 1 tab PO Q4H PRN PRN Reason: Pain (moderate 4-6) Albuterol/Ipratropium (Duoneb 3.0-0.5 Mg/3 Ml) 3 ml NEB Q4H PRN PRN Reason: Shortness Of Breath/wheezing Bisacodyl (Dulcolax) 5 mg PO DAILY PRN PRN Reason: Constipation Docusate Sodium (Colace) 100 mg PO BID PRN PRN Reason: Constipation Enoxaparin Sodium (Lovenox) 40 mg SUBCUT Q12H [facility] Last Admin: 02/21/18 20:29 Dose: 40 mg Furosemide (Lasix) 40 mg PO DAILY [facility] Last Admin: 02/21/18 09:02 Dose: 40 mg Hydralazine HCl (Apresoline) 20 mg IVPUSH Q4H PRN PRN Reason: Hypertension Hydromorphone HCl (Dilaudid) 0.25 mg IVPUSH Q2H PRN PRN Reason: Pain (severe 7-10) Promethazine HCl 12.5 mg/ (Sodium Chloride) 50.5 mls @ 100 mls/hr IV Q6H PRN PRN Reason: Nausea/Vomiting Levetiracetam (Keppra) 1,500 mg PO BID [facility] Last Admin: 02/21/18 20:28 Dose: Not Given Levothyroxine Sodium (Levothyroxine) 75 mcg PO ACBREAKFAST [facility] Last Admin: 02/22/18 05:35 Dose: 75 mcg Lorazepam (Ativan) 1 mg PO Q8H PRN PRN Reason: Seizures Last Admin: 02/21/18 13:30 Dose: 1 mg Lorazepam (Ativan) 2 mg IVPUSH Q4H PRN PRN Reason: Seizures Last Admin: 02/22/18 04:27 Dose: 2 mg Lorazepam (Ativan) 1 - 3 mg IV Q4H PRN; Protocol PRN Reason: Withdrawal Symptoms Magnesium Sulfate (Pharmacy To Dose - Magnesium Replacement) 1 dose .XX ASDIRECTED [facility] Metoprolol Tartrate (Lopressor) 5 mg IVPUSH Q4H PRN PRN Reason: Tachycardia Ondansetron HCl (Zofran) 4 mg IV Q6H PRN PRN Reason: Nausea/Vomiting Phenytoin Sodium (Phenytoin) 200 mg PO BEDTIME [facility] Last Admin: 02/21/18 20:28 Dose: Not Given Polyethylene Glycol (Miralax) 17 gm PO DAILY PRN PRN Reason: Constipation Potassium Chloride (Pharmacy To Dose - Potassium Replacement) 1 dose .XX ASDIRECTED [facility] Senna/Docusate Sodium (Senna Plus) 1 tab PO BID PRN PRN Reason: Constipation Sodium Chloride (Saline Flush) 10 ml FLUSH ASDIRECTED PRN PRN Reason: Keep Vein Open Last Admin: 02/20/18 17:48 Dose: 10 ml Discontinued Medications Diazepam (Valium) 10 mg IV ONETIME STA Stop: 02/21/18 19:20 Last Admin: 02/21/18 20:16 Dose: Not Given Sodium Chloride (Normal Saline) 1,000 mls @ 999 mls/hr IV ONETIME ONE Stop: 02/20/18 18:24 Last Admin: 02/20/18 17:45 Dose: 999 mls/hr Levetiracetam 1,500 mg/ Sodium (Chloride) 115 mls @ 400 mls/hr IV ONETIME ONE Stop: 02/20/18 23:01 Last Admin: 02/20/18 23:14 Dose: 400 mls/hr Phenytoin Sodium 200 mg/ (Sodium Chloride) 104 mls @ 416 mls/hr IV ONETIME ONE Stop: 02/20/18 22:58 Last Admin: 02/20/18 23:39 Dose: 416 mls/hr Fosphenytoin Sodium 3,000 mg. (pe/ Sodium Chloride) 110 mls @ 150 mls/hr IV NOW ONE Stop: 02/21/18 19:39 Last Admin: 02/21/18 20:15 Dose: Not Given Levetiracetam 1,500 mg/ Sodium (Chloride) 115 mls @ 400 mls/hr IV ONETIME ONE Stop: 02/21/18 19:40 Last Admin: 02/21/18 20:10 Dose: 400 mls/hr Ketorolac Tromethamine (Toradol) 15 mg IVPUSH ONETIME ONE Stop: 02/20/18 18:37 Last Admin: 02/20/18 18:44 Dose: 15 mg Lorazepam (Ativan) 1 mg IVPUSH ONETIME ONE Stop: 02/20/18 17:24 Last Admin: 02/20/18 17:47 Dose: 1 mg Lorazepam (Ativan) 1 mg IVPUSH ONETIME ONE Stop: 02/20/18 22:51 Last Admin: 02/20/18 23:14 Dose: 1 mg Lorazepam (Ativan) 1 mg PO ASDIRECTED PRN PRN Reason: Seizures Lorazepam (Ativan) 5 mg IVPUSH ONETIME ONE Stop: 02/21/18 19:09 Last Admin: 02/21/18 19:16 Dose: 5 mg Magnesium Oxide (Magnesium Oxide) 400 mg PO ONETIME ONE Stop: 02/21/18 23:46 Last Admin: 02/21/18 23:36 Dose: Not Given Phenytoin Sodium (Phenytoin) 100 mg PO DAILY [facility] Last Admin: 02/21/18 09:14 Dose: Not Given - Exam General: Sedated, Other (Morbidly Obese) HEENT: Pupils Equal, Pupils Reactive, Other (bald spot on her right side of her head) Neck: Supple, Trachea Midline, Other (short and thick) Lungs: Normal Respiratory Effort, Decreased Breath Sounds Cardiovascular: Regular Rate, Regular Rhythm GI/Abdominal Exam: Normal Bowel Sounds, Soft, Non-Tender, No Organomegaly, No Distention, No Abnormal Bruit (Female) Exam: Deferred Back Exam: Normal Inspection Extremities: Normal Inspection, Normal Range of Motion, Non-Tender, No Pedal Edema, Normal Capillary Refill Peripheral Pulses: 2+: Dorsalis Pedis (L), Dorsalis Pedis (R) Skin: Warm, Dry, Intact Neurological: Other (unable to assess, she is considerably sedated ) Psy/Mental Status: Other (considerably sedated). No: Alert - Problem List Review Problem List Initiated/Reviewed/Updated: Yes - My Orders Last 24 Hours: My Active Orders 02/21/18 07:48 Seizure Precautions [OM.PC] Routine 02/21/18 07:49 Aspiration Precautions [RC] ASDIRECTED 02/21/18 09:00 Enoxaparin [Lovenox] 40 mg SUBCUT Q12H Furosemide [Lasix] 40 mg PO DAILY levETIRAcetam [Keppra] 1,500 mg PO BID 02/21/18 19:45 LEVETIRACETAM, S [REF] Stat 02/21/18 21:00 Phenytoin 200 mg PO BEDTIME 02/22/18 07:52 Consult to Speech Language Pathology [LOGISTICS SUPPORT Evaluation and Treatment] [CONS] Routine 02/23/18 05:11 BASIC METABOLIC PANEL,BMP [CHEM] AM MAGNESIUM [CHEM] AM 02/24/18 05:11 BASIC METABOLIC PANEL,BMP [CHEM] AM MAGNESIUM [CHEM] AM - Plan Plan:: Assessment/Plan: Acute: Epileptic Seizure - Hx/o Non compliance - Documented low Dilantin level on last ED visit prior to this admission - 2 small seizure last night at home - PRN Ativan for Abortive Seizures - She refused hospital brand phenytoin - Had a prolonged epileptic episode last night; she responded to a total of 9 mg of Ativan IVP and IV Keppra 1500 mg - Resume 1500 mg po BID Keppra and increase home dose phenytoin level to 300 mg po QHS 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
[2018-02-22] MEDS ORDERED: Magnesium Sulfate/Water 2 GM in Premix Bag 1 BAG IV ONE (09:00)
[2018-02-22] MEDS: Enoxaparin 40 MG/0.4 ML Syringe SUBCUT SCH ×3 (09:10→20:46)
[2018-02-22] MEDS: levETIRAcetam 500 MG Tab PO SCH ×3 (09:10→20:46)
[2018-02-22] MEDS: Furosemide 40 MG Tab PO SCH (09:11)
[2018-02-22] MEDS: Phenytoin 100 MG Cap.ER PO SCH ×2 (19:47→20:46)
[2018-02-23] MEDS: LORazepam 2 MG/ML SDV IVPUSH PRN ×4 (02:06→15:41)
--- NOTE | 2018-02-23 06:29 | PCM.PN ---
- General Info Date of Service: 02/23/18 Admission Dx/Problem (Free Text): Seizure Disorder Subjective Update: Follow Up Functional Status: Reports: Tolerating Diet, Ambulating, Urinating. Denies: Pain Controlled, New Symptoms Pain Score: 7 - Review of Systems General: Denies: Fever, Weakness, Fatigue, Malaise, Chills HEENT: Reports: No Symptoms Pulmonary: Denies: Shortness of Breath, Pleuritic Chest Pain, Wheezing Cardiovascular: Denies: Chest Pain, Palpitations, Dyspnea on Exertion, Lightheadedness Gastrointestinal: Reports: Other (Abdominal soreness). Denies: Abdominal Pain, Nausea, Vomiting Genitourinary: Reports: No Symptoms Musculoskeletal: Reports: No Symptoms Skin: Denies: Cyanosis, Mottled, Pallor, Diaphoresis, Bruising Neurological: Denies: Confusion, Difficulty Walking, Weakness, Gait Disturbance Psychiatric: Denies: Depression, Anxiety, Agitation, Hallucinations Systems Review Comment:: Throughout the night she was on and off with small epileptic seizures. Her seizures normally responded to low dose Ativan IV. I was called up teacher of the deaf due to no non-stop seizures. Her dilantin level this morning remains in the subtherapeutic range. - Patient Data Vitals - Most Recent: Last Vital Signs Temp 36.7 C 02/23/18 03:12 Pulse 92 02/23/18 03:12 Resp 21 H 02/23/18 03:12 BP 133/68 02/23/18 03:12 Pulse Ox 95 02/23/18 03:12 Weight - Most Recent: 153.087 kg I&O - Last 24 Hours: Intake & Output 02/22/18 02/22/18 02/23/18 14:59 22:59 06:59 Intake Total 350 Balance 350 Lab Results Last 24 Hours: Laboratory Results - last 24 hr 02/22/18 Range/Units 06:54 Sodium 137 (136-145) mEq/L Potassium 4.4 (3.5-5.1) mEq/L Chloride 104 (98-107) mEq/L Carbon Dioxide 22 (21-32) mEq/L Anion Gap 15.4 H (5-15) BUN 12 (7-18) mg/dL Creatinine 0.9 (0.55-1.02) mg/dL Est Cr Clr Drug Dosing 57.83 mL/min Estimated GFR (MDRD) > 60 (>60) mL/min BUN/Creatinine Ratio 13.3 L (14-18) Glucose 125 H (74-106) mg/dL Calcium 8.9 (8.5-10.1) mg/dL Magnesium 1.6 L (1.8-2.4) mg/dl Med Orders - Current: Current Medications Acetaminophen (Tylenol) 650 mg PO Q4H PRN PRN Reason: Pain (Mild 1-3)/fever Last Admin: 02/21/18 12:44 Dose: 650 mg Hydrocodone Bitart/Acetaminophen ([place] 325-5 Mg) 1 tab PO Q4H PRN PRN Reason: Pain (moderate 4-6) Albuterol/Ipratropium (Duoneb 3.0-0.5 Mg/3 Ml) 3 ml NEB Q4H PRN PRN Reason: Shortness Of Breath/wheezing Bisacodyl (Dulcolax) 5 mg PO DAILY PRN PRN Reason: Constipation Docusate Sodium (Colace) 100 mg PO BID PRN PRN Reason: Constipation Enoxaparin Sodium (Lovenox) 40 mg SUBCUT Q12H [facility] Last Admin: 02/22/18 20:46 Dose: Not Given Furosemide (Lasix) 40 mg PO DAILY [facility] Last Admin: 02/22/18 09:11 Dose: 40 mg Hydralazine HCl (Apresoline) 20 mg IVPUSH Q4H PRN PRN Reason: Hypertension Hydromorphone HCl (Dilaudid) 0.25 mg IVPUSH Q2H PRN PRN Reason: Pain (severe 7-10) Promethazine HCl 12.5 mg/ (Sodium Chloride) 50.5 mls @ 100 mls/hr IV Q6H PRN PRN Reason: Nausea/Vomiting Levetiracetam (Keppra) 1,500 mg PO BID [facility] Last Admin: 02/22/18 20:46 Dose: Not Given Levothyroxine Sodium (Levothyroxine) 75 mcg PO ACBREAKFAST [facility] Last Admin: 02/22/18 05:35 Dose: 75 mcg Lorazepam (Ativan) 1 mg PO Q8H PRN PRN Reason: Seizures Last Admin: 02/21/18 13:30 Dose: 1 mg Lorazepam (Ativan) 2 mg IVPUSH Q4H PRN PRN Reason: Seizures Last Admin: 02/23/18 03:07 Dose: 2 mg Lorazepam (Ativan) 1 - 3 mg IV Q4H PRN; Protocol PRN Reason: Withdrawal Symptoms Magnesium Sulfate (Pharmacy To Dose - Magnesium Replacement) 1 dose .XX ASDIRECTED [facility] Metoprolol Tartrate (Lopressor) 5 mg IVPUSH Q4H PRN PRN Reason: Tachycardia Ondansetron HCl (Zofran) 4 mg IV Q6H PRN PRN Reason: Nausea/Vomiting Phenytoin Sodium (Phenytoin) 300 mg PO BEDTIME [facility] Last Admin: 02/22/18 20:46 Dose: Not Given Polyethylene Glycol (Miralax) 17 gm PO DAILY PRN PRN Reason: Constipation Potassium Chloride (Pharmacy To Dose - Potassium Replacement) 1 dose .XX ASDIRECTED [facility] Senna/Docusate Sodium (Senna Plus) 1 tab PO BID PRN PRN Reason: Constipation Sodium Chloride (Saline Flush) 10 ml FLUSH ASDIRECTED PRN PRN Reason: Keep Vein Open Last Admin: 02/20/18 17:48 Dose: 10 ml Discontinued Medications Diazepam (Valium) 10 mg IV ONETIME STA Stop: 02/21/18 19:20 Last Admin: 02/21/18 20:16 Dose: Not Given Sodium Chloride (Normal Saline) 1,000 mls @ 999 mls/hr IV ONETIME ONE Stop: 02/20/18 18:24 Last Admin: 02/20/18 17:45 Dose: 999 mls/hr Levetiracetam 1,500 mg/ Sodium (Chloride) 115 mls @ 400 mls/hr IV ONETIME ONE Stop: 02/20/18 23:01 Last Admin: 02/20/18 23:14 Dose: 400 mls/hr Phenytoin Sodium 200 mg/ (Sodium Chloride) 104 mls @ 416 mls/hr IV ONETIME ONE Stop: 02/20/18 22:58 Last Admin: 02/20/18 23:39 Dose: 416 mls/hr Fosphenytoin Sodium 3,000 mg. (pe/ Sodium Chloride) 110 mls @ 150 mls/hr IV NOW ONE Stop: 02/21/18 19:39 Last Admin: 02/21/18 20:15 Dose: Not Given Levetiracetam 1,500 mg/ Sodium (Chloride) 115 mls @ 400 mls/hr IV ONETIME ONE Stop: 02/21/18 19:40 Last Admin: 02/21/18 20:10 Dose: 400 mls/hr Magnesium Sulfate 2 gm/ Premix 50 mls @ 25 mls/hr IV ONETIME ONE Stop: 02/22/18 10:59 Last Admin: 02/22/18 09:11 Dose: 25 mls/hr Ketorolac Tromethamine (Toradol) 15 mg IVPUSH ONETIME ONE Stop: 02/20/18 18:37 Last Admin: 02/20/18 18:44 Dose: 15 mg Lorazepam (Ativan) 1 mg IVPUSH ONETIME ONE Stop: 02/20/18 17:24 Last Admin: 02/20/18 17:47 Dose: 1 mg Lorazepam (Ativan) 1 mg IVPUSH ONETIME ONE Stop: 02/20/18 22:51 Last Admin: 02/20/18 23:14 Dose: 1 mg Lorazepam (Ativan) 1 mg PO ASDIRECTED PRN PRN Reason: Seizures Lorazepam (Ativan) 5 mg IVPUSH ONETIME ONE Stop: 02/21/18 19:09 Last Admin: 02/21/18 19:16 Dose: 5 mg Magnesium Oxide (Magnesium Oxide) 400 mg PO ONETIME ONE Stop: 02/21/18 23:46 Last Admin: 02/21/18 23:36 Dose: Not Given Phenytoin Sodium (Phenytoin) 200 mg PO BEDTIME [facility] Last Admin: 02/21/18 20:28 Dose: Not Given Phenytoin Sodium (Phenytoin) 100 mg PO DAILY [facility] Last Admin: 02/21/18 09:14 Dose: Not Given - Exam General: Alert, Oriented, Cooperative, No Acute Distress, Other (Obese) HEENT: Pupils Equal, Pupils Reactive, EOMI, Mucous Membr. Moist/[place] Neck: Supple, Trachea Midline, No JVD, No Thyromegaly Lungs: Clear to Auscultation, Normal Respiratory Effort, Decreased Breath Sounds Cardiovascular: Regular Rate, Regular Rhythm GI/Abdominal Exam: Normal Bowel Sounds, Soft, No Organomegaly, No Distention, No Abnormal Bruit, No Mass, Tender. No: Guarding, Rigid, Rebound (Female) Exam: Deferred Back Exam: Normal Inspection, Decreased Range of Motion Extremities: Normal Inspection, Normal Range of Motion, Non-Tender, No Pedal Edema, Normal Capillary Refill Peripheral Pulses: 2+: Dorsalis Pedis (L), Dorsalis Pedis (R) Skin: Warm, Dry, Intact Neurological: No New Focal Deficit, Normal Gait Psy/Mental Status: Alert, Normal Affect, Normal Mood. No: Anxious - Problem List Review Problem List Initiated/Reviewed/Updated: Yes - My Orders Last 24 Hours: My Active Orders 02/22/18 07:52 Consult to Speech Language Pathology [AUDIENCE DEVELOPMENT MANAGER Evaluation and Treatment] [CONS] Routine 02/22/18 21:00 Phenytoin 300 mg PO BEDTIME 02/23/18 05:11 BASIC METABOLIC PANEL,BMP [CHEM] AM MAGNESIUM [CHEM] AM 02/23/18 05:51 DILANTIN,PHENYTOIN [CHEM] Stat 02/23/18 05:56 EEG Awake Drowsy [RC] ROUTINE 02/24/18 05:11 BASIC METABOLIC PANEL,BMP [CHEM] AM MAGNESIUM [CHEM] AM - Plan Plan:: Assessment/Plan: Acute: Status Epilepticus - Hx/o Non compliance - Documented low Dilantin level on last ED visit prior to this admission - 2 small seizure last night at home - PRN Ativan for Abortive Seizures - She refused hospital brand phenytoin - Has had multiple epileptic seizures throughout the night but responded to PRN Ativan - Will move her ICU and EEG now - Continue 1500 mg po BID Keppra and start phenytoin drip now - Dilatin level later today; goal at least 15 (10-20) Generalized Weakness - She requires assistance due to Morbid Obesity Non-Compliance - Dilantin level 4.4 (10.-20) - Will optimize dose Resolved: 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
[2018-02-23] MEDS ORDERED: SODIUM CHLORIDE 0.9% IV ONE (06:35)
[2018-02-23] MEDS ORDERED: PHENYTOIN IV ONE (06:35)
[2018-02-23] MEDS ORDERED: Phenytoin 1,500 MG in Sodium Chloride 0.9% 100 ML IV ONE (09:00)
[2018-02-23] MEDS: Furosemide 40 MG Tab PO SCH (09:23)
[2018-02-23] MEDS: levETIRAcetam 500 MG Tab PO SCH ×2 (09:23→20:43)
[2018-02-23] MEDS: Enoxaparin 40 MG/0.4 ML Syringe SUBCUT SCH ×2 (09:23→20:44)
[2018-02-23] MEDS: Levothyroxine 75 MCG Tab PO SCH (10:47)
[2018-02-23] MEDS ORDERED: Phenytoin 1,500 MG in Sodium Chloride 0.9% 100 ML IV PRN (16:10)
[2018-02-23] MEDS: Phenytoin 100 MG Cap.ER PO SCH (20:43)
[2018-02-23] MEDS ORDERED: Phenytoin 100 MG Cap.ER PO SCH (21:00)
[2018-02-24] MEDS: LORazepam 2 MG/ML SDV IVPUSH PRN ×3 (05:13→07:41)
[2018-02-24] MEDS: Levothyroxine 75 MCG Tab PO SCH (06:02)
--- NOTE | 2018-02-24 07:39 | PCM.PN ---
- General Info Date of Service: 02/24/18 Admission Dx/Problem (Free Text): Seizure Disorder Subjective Update: In to see Ines today. She is sitting up in the chair. She is upset about this and requesting to be placed in the bed because "i would rather have a seizure in the bed than in the chair." She is also upset because she has not been placed in a wheelchair. She reports she was able to wheel around yesterday a bit and has not had this opportunity today. I explained to her that she needs to prove she can handle sitting in the recliner before we can consider moving her to a wheelchair. Her seizure frequency has decreased. She had a seizure yesterday evening and then this AM at 5 and again around 8. She was on a phenytoin drip which was stopped by pharmacy when her level was found to be at the low end of normal. Her level is 8.3 today and she will be restarted on the drip. Keppra level is pending. Nursing reports patient has started to call 911 when she is upset about her care. We discussed how this is not acceptable and how she needs to be aware nursing has other patients they are taking care of and cannot always get to her requests immediately. She voiced understanding. CM is reporting patient needs to be seizure free for 72hrs for acceptance to [facility]. Nursing otherwise has no complaints. Functional Status: Reports: Pain Controlled, Tolerating Diet, Ambulating, Urinating. Denies: New Symptoms - Review of Systems General: Reports: No Symptoms, Weakness (generalized ). Denies: Fever, Fatigue , Malaise, Chills, Night Sweats HEENT: Reports: No Symptoms. Denies: Ear Pain, Eye Pain, Headaches, Visual Changes Pulmonary: Reports: No Symptoms. Denies: Shortness of Breath, Pleuritic Chest Pain, Cough, Sputum, Wheezing Cardiovascular: Reports: No Symptoms. Denies: Chest Pain, Palpitations, Dyspnea on Exertion, Edema Gastrointestinal: Reports: No Symptoms. Denies: Abdominal Pain, Constipation, Nausea, Vomiting Genitourinary: Reports: No Symptoms. Denies: Dysuria, Frequency, Burning Musculoskeletal: Reports: No Symptoms Skin: Reports: No Symptoms Neurological: Reports: No Symptoms Psychiatric: Reports: No Symptoms - Patient Data Vitals - Most Recent: Last Vital Signs Temp 97.8 F 02/24/18 04:00 Pulse 84 02/24/18 04:00 Resp 24 H 02/24/18 04:00 BP 117/69 02/24/18 04:00 Pulse Ox 93 L 02/24/18 04:00 Weight - Most Recent: 330 lb I&O - Last 24 Hours: Intake & Output 02/23/18 02/24/18 02/24/18 22:59 06:59 14:59 Intake Total 650 Output Total 300 Balance 350 Lab Results Last 24 Hours: Laboratory Results - last 24 hr 02/23/18 Range/Units 14:35 Phenytoin 11.2 (10.0-20.0) ug/mL Med Orders - Current: Current Medications Acetaminophen (Tylenol) 650 mg PO Q4H PRN PRN Reason: Pain (Mild 1-3)/fever Last Admin: 02/21/18 12:44 Dose: 650 mg Hydrocodone Bitart/Acetaminophen ([place] 325-5 Mg) 1 tab PO Q4H PRN PRN Reason: Pain (moderate 4-6) Albuterol/Ipratropium (Duoneb 3.0-0.5 Mg/3 Ml) 3 ml NEB Q4H PRN PRN Reason: Shortness Of Breath/wheezing Bisacodyl (Dulcolax) 5 mg PO DAILY PRN PRN Reason: Constipation Docusate Sodium (Colace) 100 mg PO BID PRN PRN Reason: Constipation Enoxaparin Sodium (Lovenox) 40 mg SUBCUT Q12H [facility] Last Admin: 02/23/18 20:44 Dose: 40 mg Furosemide (Lasix) 40 mg PO DAILY [facility] Last Admin: 02/23/18 09:23 Dose: 40 mg Hydralazine HCl (Apresoline) 20 mg IVPUSH Q4H PRN PRN Reason: Hypertension Hydromorphone HCl (Dilaudid) 0.25 mg IVPUSH Q2H PRN PRN Reason: Pain (severe 7-10) Promethazine HCl 12.5 mg/ (Sodium Chloride) 50.5 mls @ 100 mls/hr IV Q6H PRN PRN Reason: Nausea/Vomiting Levetiracetam (Keppra) 1,500 mg PO BID [facility] Last Admin: 02/23/18 20:43 Dose: 1,500 mg Levothyroxine Sodium (Levothyroxine) 75 mcg PO ACBREAKFAST [facility] Last Admin: 02/24/18 06:02 Dose: 75 mcg Lorazepam (Ativan) 2 mg IVPUSH Q4H PRN PRN Reason: Seizures Last Admin: 02/24/18 05:55 Dose: 2 mg Magnesium Sulfate (Pharmacy To Dose - Magnesium Replacement) 1 dose .XX ASDIRECTED [facility] Metoprolol Tartrate (Lopressor) 5 mg IVPUSH Q4H PRN PRN Reason: Tachycardia Ondansetron HCl (Zofran) 4 mg IV Q6H PRN PRN Reason: Nausea/Vomiting Phenytoin Sodium (Phenytoin) 300 mg PO BID [facility] Last Admin: 02/23/18 20:43 Dose: 300 mg Polyethylene Glycol (Miralax) 17 gm PO DAILY PRN PRN Reason: Constipation Potassium Chloride (Pharmacy To Dose - Potassium Replacement) 1 dose .XX ASDIRECTED [facility] Senna/Docusate Sodium (Senna Plus) 1 tab PO BID PRN PRN Reason: Constipation Sodium Chloride (Saline Flush) 10 ml FLUSH ASDIRECTED PRN PRN Reason: Keep Vein Open Last Admin: 02/20/18 17:48 Dose: 10 ml Discontinued Medications Diazepam (Valium) 10 mg IV ONETIME STA Stop: 02/21/18 19:20 Last Admin: 02/21/18 20:16 Dose: Not Given Sodium Chloride (Normal Saline) 1,000 mls @ 999 mls/hr IV ONETIME ONE Stop: 02/20/18 18:24 Last Admin: 02/20/18 17:45 Dose: 999 mls/hr Levetiracetam 1,500 mg/ Sodium (Chloride) 115 mls @ 400 mls/hr IV ONETIME ONE Stop: 02/20/18 23:01 Last Admin: 02/20/18 23:14 Dose: 400 mls/hr Phenytoin Sodium 200 mg/ (Sodium Chloride) 104 mls @ 416 mls/hr IV ONETIME ONE Stop: 02/20/18 22:58 Last Admin: 02/20/18 23:39 Dose: 416 mls/hr Fosphenytoin Sodium 3,000 mg. (pe/ Sodium Chloride) 110 mls @ 150 mls/hr IV NOW ONE Stop: 02/21/18 19:39 Last Admin: 02/21/18 20:15 Dose: Not Given Levetiracetam 1,500 mg/ Sodium (Chloride) 115 mls @ 400 mls/hr IV ONETIME ONE Stop: 02/21/18 19:40 Last Admin: 02/21/18 20:10 Dose: 400 mls/hr Magnesium Sulfate 2 gm/ Premix 50 mls @ 25 mls/hr IV ONETIME ONE Stop: 02/22/18 10:59 Last Admin: 02/22/18 09:11 Dose: 25 mls/hr Phenytoin Sodium 1,530 mg/ (Sodium Chloride) 130.6 mls @ 130.6 mls/hr IV ONETIME ONE Stop: 02/23/18 07:34 Last Admin: 02/23/18 10:00 Dose: Not Given Phenytoin Sodium 1,500 mg/ (Sodium Chloride) 130 mls @ 130 mls/hr IV ONETIME ONE Stop: 02/23/18 09:59 Last Admin: 02/23/18 09:09 Dose: 130 mls/hr Phenytoin Sodium 1,500 mg/ (Sodium Chloride) 100 mls @ 100 mls/hr IV Q8H PRN PRN Reason: SEIZURES Ketorolac Tromethamine (Toradol) 15 mg IVPUSH ONETIME ONE Stop: 02/20/18 18:37 Last Admin: 02/20/18 18:44 Dose: 15 mg Lorazepam (Ativan) 1 mg IVPUSH ONETIME ONE Stop: 02/20/18 17:24 Last Admin: 02/20/18 17:47 Dose: 1 mg Lorazepam (Ativan) 1 mg IVPUSH ONETIME ONE Stop: 02/20/18 22:51 Last Admin: 02/20/18 23:14 Dose: 1 mg Lorazepam (Ativan) 1 mg PO Q8H PRN PRN Reason: Seizures Last Admin: 02/21/18 13:30 Dose: 1 mg Lorazepam (Ativan) 1 mg PO ASDIRECTED PRN PRN Reason: Seizures Lorazepam (Ativan) 1 - 3 mg IV Q4H PRN; Protocol PRN Reason: Withdrawal Symptoms Lorazepam (Ativan) 5 mg IVPUSH ONETIME ONE Stop: 02/21/18 19:09 Last Admin: 02/21/18 19:16 Dose: 5 mg Magnesium Oxide (Magnesium Oxide) 400 mg PO ONETIME ONE Stop: 02/21/18 23:46 Last Admin: 02/21/18 23:36 Dose: Not Given Phenytoin Sodium (Phenytoin) 200 mg PO BEDTIME [facility] Last Admin: 02/21/18 20:28 Dose: Not Given Phenytoin Sodium (Phenytoin) 100 mg PO DAILY [facility] Last Admin: 02/21/18 09:14 Dose: Not Given Phenytoin Sodium (Phenytoin) 300 mg PO BEDTIME [facility] Last Admin: 02/22/18 20:46 Dose: Not Given Phenytoin Sodium (Phenytoin) 300 mg PO BEDTIME [facility] - Exam Quality Assessment: DVT Prophylaxis General: Alert, Oriented, Cooperative, No Acute Distress HEENT: Pupils Equal, Pupils Reactive, Mucous Membr. Moist/[place] Neck: Supple, Trachea Midline, No JVD Lungs: Clear to Auscultation, Normal Respiratory Effort, Decreased Breath Sounds Cardiovascular: Regular Rate, Regular Rhythm, Other (Distant heart tones ) GI/Abdominal Exam: Normal Bowel Sounds, Soft, Non-Tender, No Organomegaly, No Distention (Female) Exam: Deferred Back Exam: Normal Inspection, Decreased Range of Motion Extremities: Normal Inspection, Normal Range of Motion, Non-Tender, No Pedal Edema, Normal Capillary Refill Peripheral Pulses: 1+: Radial (L), Radial (R), Posterior Tibial (L), Posterior Tibial (R), Dorsalis Pedis (L), Dorsalis Pedis (R) Skin: Warm, Dry, Intact Neurological: No New Focal Deficit Psy/Mental Status: Alert - Problem List & Annotations (1) Morbid obesity SNOMED Code(s): 424825463 Code(s): E66.01 - MORBID (SEVERE) OBESITY DUE TO EXCESS CALORIES Status: Chronic Priority: High Current Visit: Yes (2) Seizure disorder SNOMED Code(s): 165866201 Code(s): G40.909 - EPILEPSY, UNSP, NOT INTRACTABLE, WITHOUT STATUS EPILEPTICUS Status: Acute Priority: High Current Visit: Yes (3) Hypomagnesemia SNOMED Code(s): 055355778 Code(s): E83.42 - HYPOMAGNESEMIA Status: Resolved Priority: High Current Visit: Yes (4) Benji's paralysis SNOMED Code(s): 94785199 Code(s): G83.84 - BENJI'S PARALYSIS (POSTEPILEPTIC) Status: Resolved Priority: High Current Visit: Yes (5) Astrocytoma of brain SNOMED Code(s): 231874360 Code(s): C71.9 - MALIGNANT NEOPLASM OF BRAIN, UNSPECIFIED Status: Chronic Priority: Medium Current Visit: No (6) Breakthrough seizure SNOMED Code(s): 318238149 Code(s): G40.919 - EPILEPSY, UNSP, INTRACTABLE, WITHOUT STATUS EPILEPTICUS Status: Acute Priority: High Current Visit: Yes (7) 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 SNOMED Code(s): 506264993071636 Code(s): G40.301 - GEN IDIOPATHIC EPILEPSY, NOT INTRACTABLE, W STAT EPI Status: Acute Priority: High Current Visit: Yes (8) Noncompliance with medications SNOMED Code(s): 981172039 Code(s): Z91.14 - PATIENT'S OTHER NONCOMPLIANCE WITH MEDICATION REGIMEN Status: Acute Priority: High Current Visit: Yes (9) TABBY on CPAP SNOMED Code(s): 33625314 Code(s): G47.33 - OBSTRUCTIVE SLEEP APNEA (ADULT) (PEDIATRIC); Z99.89 - DEPENDENCE ON OTHER ENABLING MACHINES AND DEVICES Status: Chronic Priority: Medium Current Visit: Yes (10) Hypothyroidism SNOMED Code(s): 42222236 Code(s): E03.9 - HYPOTHYROIDISM, UNSPECIFIED Status: Chronic Priority: Medium Current Visit: No Qualifiers: Hypothyroidism type: unspecified Qualified Code(s): E03.9 - Hypothyroidism , unspecified (11) Other specified depressive episodes SNOMED Code(s): 42127958 Code(s): F32.89 - OTHER SPECIFIED DEPRESSIVE EPISODES Status: Chronic Priority: Low Current Visit: No (12) Post-seizure headache SNOMED Code(s): 21374260 Code(s): G44.89 - OTHER HEADACHE SYNDROME Status: Acute Priority: High Current Visit: Yes - Problem List Review Problem List Initiated/Reviewed/Updated: Yes - Plan Plan:: Assessment/Plan: Acute: Status Epilepticus - Hx/o Non compliance - Documented low Dilantin level on last ED visit prior to this admission - 2 small seizure last night at home - PRN Ativan for Abortive Seizures - She refused hospital brand phenytoin - Has had multiple epileptic seizures throughout the night but responded to PRN Ativan - decreasing in frequency - Will move her ICU - EEG on 02/23/18 -Consistent with localization related seizure disorder -The patient is having recurrent electroencephalographic subclinical seizures - Continue 1500 mg po BID Keppra and start phenytoin drip now--> stopped by pharmacy - restart today, 300mg BID after - Dilatin level again later today; goal at least 15 (10-20) - Levetiracetam level pending Generalized Weakness - She requires assistance due to Morbid Obesity - PT/OT - Recommending SNF placement Non-Compliance - Dilantin level 4.4 (10.-20) - Will optimize dose Resolved: 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 Phenytoin level low this AM Routine AM Labs Continue current plan High Fall Risk Aspiration/Seizure Precautions Continue PT/OT SW/CM for d/c planning - recommending SNF placement Code status:Full code; PCP: Vicky Salazar, Nurse practitioner
[2018-02-24] MEDS: Enoxaparin 40 MG/0.4 ML Syringe SUBCUT SCH ×2 (08:28→20:36)
[2018-02-24] MEDS: Furosemide 40 MG Tab PO SCH (08:29)
[2018-02-24] MEDS: Bisacodyl 5 MG Tab PO PRN (08:30)
[2018-02-24] MEDS: levETIRAcetam 500 MG Tab PO SCH ×2 (08:30→20:35)
[2018-02-24] MEDS: Phenytoin 100 MG Cap.ER PO SCH ×2 (08:30→20:36)
[2018-02-24] MEDS ORDERED: Phenytoin 1,500 MG in Sodium Chloride 0.9% 100 ML IV ONE (10:15)
[2018-02-25] MEDS: Levothyroxine 75 MCG Tab PO SCH (06:00)
[2018-02-25] MEDS: Enoxaparin 40 MG/0.4 ML Syringe SUBCUT SCH ×2 (08:04→20:23)
[2018-02-25] MEDS: Phenytoin 100 MG Cap.ER PO SCH ×2 (08:04→20:22)
[2018-02-25] MEDS: Furosemide 40 MG Tab PO SCH (08:04)
[2018-02-25] MEDS: levETIRAcetam 500 MG Tab PO SCH ×2 (08:04→20:22)
[2018-02-25] MEDS: LORazepam 2 MG/ML SDV IVPUSH PRN (08:40)
[2018-02-25] MEDS: Acetaminophen 325 MG Tab PO PRN (08:51)
--- NOTE | 2018-02-25 10:05 | PCM.PN ---
- General Info Date of Service: 02/25/18 Subjective Update: Disrespectful to the nursing staff, displayed action inconsistent with her age, ripping off her telemetry and acting out; see RN's notes for details. Functional Status: Reports: Ambulating, Urinating - Review of Systems General: Reports: No Symptoms HEENT: Reports: No Symptoms Pulmonary: Reports: No Symptoms Cardiovascular: Reports: No Symptoms Gastrointestinal: Reports: No Symptoms Genitourinary: Reports: No Symptoms Musculoskeletal: Reports: No Symptoms Skin: Reports: No Symptoms Neurological: Reports: No Symptoms Psychiatric: Reports: No Symptoms - Patient Data Vitals - Most Recent: Last Vital Signs Temp 36.4 C 02/25/18 08:00 Pulse 94 02/25/18 08:00 Resp 23 H 02/25/18 08:00 BP 108/86 02/25/18 08:00 Pulse Ox 97 02/25/18 08:00 Weight - Most Recent: 150.139 kg I&O - Last 24 Hours: Intake & Output 02/24/18 02/25/18 02/25/18 22:59 06:59 14:59 Intake Total 600 900 Output Total 600 Balance 600 300 Lab Results Last 24 Hours: Laboratory Results - last 24 hr 02/24/18 02/25/18 02/25/18 Range/Units 17:05 06:08 06:08 WBC 10.43 H (3.98-10.04) K/mm3 RBC 4.90 (3.98-5.22) M/mm3 Hgb 15.3 (11.2-15.7) gm/L Hct 45.5 H (34.1-44.9) % MCV 92.9 (79.4-94.8) fl MCH 31.2 (25.6-32.2) pg MCHC 33.6 (32.2-35.5) g/dl RDW Std Deviation 46.4 H (36.4-46.3) fL Plt Count 249 (182-369) K/mm3 MPV 8.7 L (9.4-12.3) fl Neut % (Auto) 60.4 (34.0-71.1) % Lymph % (Auto) 27.4 (19.3-51.7) % [place] % (Auto) 8.7 (4.7-12.5) % Eos % (Auto) 3.0 (0.7-5.8) Baso % (Auto) 0.2 (0.1-1.2) % Neut # (Auto) 6.30 H (1.56-6.13) K/mm3 Lymph # (Auto) 2.86 (1.18-3.74) K/mm3 [place] # (Auto) 0.91 H (0.24-0.36) K/mm3 Eos # (Auto) 0.31 (0.04-0.36) K/mm3 Baso # (Auto) 0.02 (0.01-0.08) K/mm3 Sodium 140 (136-145) mEq/L Potassium 3.8 (3.5-5.1) mEq/L Chloride 103 (98-107) mEq/L Carbon Dioxide 25 (21-32) mEq/L Anion Gap 15.8 H (5-15) BUN 16 (7-18) mg/dL Creatinine 0.8 (0.55-1.02) mg/dL Est Cr Clr Drug Dosing 65.06 mL/min Estimated GFR (MDRD) > 60 (>60) mL/min BUN/Creatinine Ratio 20.0 H (14-18) Glucose 133 H (74-106) mg/dL Calcium 9.3 (8.5-10.1) mg/dL Magnesium 1.7 L (1.8-2.4) mg/dl Phenytoin 12.9 (10.0-20.0) ug/mL Med Orders - Current: Current Medications Acetaminophen (Tylenol) 650 mg PO Q4H PRN PRN Reason: Pain (Mild 1-3)/fever Last Admin: 02/25/18 08:51 Dose: 650 mg Hydrocodone Bitart/Acetaminophen ([place] 325-5 Mg) 1 tab PO Q4H PRN PRN Reason: Pain (moderate 4-6) Last Admin: 02/24/18 12:35 Dose: 1 tab Albuterol/Ipratropium (Duoneb 3.0-0.5 Mg/3 Ml) 3 ml NEB Q4H PRN PRN Reason: Shortness Of Breath/wheezing Bisacodyl (Dulcolax) 5 mg PO DAILY PRN PRN Reason: Constipation Last Admin: 02/24/18 08:30 Dose: 5 mg Docusate Sodium (Colace) 100 mg PO BID PRN PRN Reason: Constipation Enoxaparin Sodium (Lovenox) 40 mg SUBCUT Q12H [facility] Last Admin: 02/25/18 08:04 Dose: 40 mg Furosemide (Lasix) 40 mg PO DAILY [facility] Last Admin: 02/25/18 08:04 Dose: 40 mg Hydralazine HCl (Apresoline) 20 mg IVPUSH Q4H PRN PRN Reason: Hypertension Last Admin: 02/25/18 04:47 Dose: 20 mg Hydromorphone HCl (Dilaudid) 0.25 mg IVPUSH Q2H PRN PRN Reason: Pain (severe 7-10) Promethazine HCl 12.5 mg/ (Sodium Chloride) 50.5 mls @ 100 mls/hr IV Q6H PRN PRN Reason: Nausea/Vomiting Levetiracetam (Keppra) 1,500 mg PO BID [facility] Last Admin: 02/25/18 08:04 Dose: 1,500 mg Levothyroxine Sodium (Levothyroxine) 75 mcg PO ACBREAKFAST [facility] Last Admin: 02/25/18 06:00 Dose: 75 mcg Lorazepam (Ativan) 2 mg IVPUSH Q4H PRN PRN Reason: Seizures Last Admin: 02/25/18 08:40 Dose: 2 mg Magnesium Sulfate (Pharmacy To Dose - Magnesium Replacement) 1 dose .XX ASDIRECTED [facility] Metoprolol Tartrate (Lopressor) 5 mg IVPUSH Q4H PRN PRN Reason: Tachycardia Ondansetron HCl (Zofran) 4 mg IV Q6H PRN PRN Reason: Nausea/Vomiting Phenytoin Sodium (Phenytoin) 300 mg PO BID [facility] Last Admin: 02/25/18 08:04 Dose: 300 mg Polyethylene Glycol (Miralax) 17 gm PO DAILY PRN PRN Reason: Constipation Potassium Chloride (Pharmacy To Dose - Potassium Replacement) 1 dose .XX ASDIRECTED [facility] Senna/Docusate Sodium (Senna Plus) 1 tab PO BID PRN PRN Reason: Constipation Sodium Chloride (Saline Flush) 10 ml FLUSH ASDIRECTED PRN PRN Reason: Keep Vein Open Last Admin: 02/20/18 17:48 Dose: 10 ml Discontinued Medications Diazepam (Valium) 10 mg IV ONETIME STA Stop: 02/21/18 19:20 Last Admin: 02/21/18 20:16 Dose: Not Given Sodium Chloride (Normal Saline) 1,000 mls @ 999 mls/hr IV ONETIME ONE Stop: 02/20/18 18:24 Last Admin: 02/20/18 17:45 Dose: 999 mls/hr Levetiracetam 1,500 mg/ Sodium (Chloride) 115 mls @ 400 mls/hr IV ONETIME ONE Stop: 02/20/18 23:01 Last Admin: 02/20/18 23:14 Dose: 400 mls/hr Phenytoin Sodium 200 mg/ (Sodium Chloride) 104 mls @ 416 mls/hr IV ONETIME ONE Stop: 02/20/18 22:58 Last Admin: 02/20/18 23:39 Dose: 416 mls/hr Fosphenytoin Sodium 3,000 mg. (pe/ Sodium Chloride) 110 mls @ 150 mls/hr IV NOW ONE Stop: 02/21/18 19:39 Last Admin: 02/21/18 20:15 Dose: Not Given Levetiracetam 1,500 mg/ Sodium (Chloride) 115 mls @ 400 mls/hr IV ONETIME ONE Stop: 02/21/18 19:40 Last Admin: 02/21/18 20:10 Dose: 400 mls/hr Magnesium Sulfate 2 gm/ Premix 50 mls @ 25 mls/hr IV ONETIME ONE Stop: 02/22/18 10:59 Last Admin: 02/22/18 09:11 Dose: 25 mls/hr Phenytoin Sodium 1,530 mg/ (Sodium Chloride) 130.6 mls @ 130.6 mls/hr IV ONETIME ONE Stop: 02/23/18 07:34 Last Admin: 02/23/18 10:00 Dose: Not Given Phenytoin Sodium 1,500 mg/ (Sodium Chloride) 130 mls @ 130 mls/hr IV ONETIME ONE Stop: 02/23/18 09:59 Last Admin: 02/23/18 09:09 Dose: 130 mls/hr Phenytoin Sodium 1,500 mg/ (Sodium Chloride) 100 mls @ 100 mls/hr IV Q8H PRN PRN Reason: SEIZURES Phenytoin Sodium 1,500 mg/ (Sodium Chloride) 130 mls @ 130 mls/hr IV ONETIME ONE Stop: 02/24/18 11:14 Last Admin: 02/24/18 10:29 Dose: 130 mls/hr Ketorolac Tromethamine (Toradol) 15 mg IVPUSH ONETIME ONE Stop: 02/20/18 18:37 Last Admin: 02/20/18 18:44 Dose: 15 mg Lorazepam (Ativan) 1 mg IVPUSH ONETIME ONE Stop: 02/20/18 17:24 Last Admin: 02/20/18 17:47 Dose: 1 mg Lorazepam (Ativan) 1 mg IVPUSH ONETIME ONE Stop: 02/20/18 22:51 Last Admin: 02/20/18 23:14 Dose: 1 mg Lorazepam (Ativan) 1 mg PO Q8H PRN PRN Reason: Seizures Last Admin: 02/21/18 13:30 Dose: 1 mg Lorazepam (Ativan) 1 mg PO ASDIRECTED PRN PRN Reason: Seizures Lorazepam (Ativan) 1 - 3 mg IV Q4H PRN; Protocol PRN Reason: Withdrawal Symptoms Lorazepam (Ativan) 5 mg IVPUSH ONETIME ONE Stop: 02/21/18 19:09 Last Admin: 02/21/18 19:16 Dose: 5 mg Magnesium Oxide (Magnesium Oxide) 400 mg PO ONETIME ONE Stop: 02/21/18 23:46 Last Admin: 02/21/18 23:36 Dose: Not Given Phenytoin Sodium (Phenytoin) 200 mg PO BEDTIME [facility] Last Admin: 02/21/18 20:28 Dose: Not Given Phenytoin Sodium (Phenytoin) 100 mg PO DAILY [facility] Last Admin: 02/21/18 09:14 Dose: Not Given Phenytoin Sodium (Phenytoin) 300 mg PO BEDTIME [facility] Last Admin: 02/22/18 20:46 Dose: Not Given Phenytoin Sodium (Phenytoin) 300 mg PO BEDTIME [facility] - Exam Quality Assessment: Supplemental Oxygen, DVT Prophylaxis General: Alert, Oriented, No Acute Distress HEENT: Pupils Equal, Pupils Reactive, EOMI Neck: Supple, Trachea Midline Lungs: Normal Respiratory Effort Cardiovascular: Regular Rate, Regular Rhythm GI/Abdominal Exam: Normal Bowel Sounds, Soft, Non-Tender, No Organomegaly, No Distention (Female) Exam: Deferred Back Exam: Normal Inspection, Full Range of Motion Extremities: Normal Inspection, Non-Tender Skin: Warm Neurological: No New Focal Deficit Psy/Mental Status: Alert, Other (labile; paranoid) - Problem List Review Problem List Initiated/Reviewed/Updated: Yes - Plan Plan:: Assessment/Plan: Acute: Status Epilepticus - Hx/o Non compliance - Documented low Dilantin level on last ED visit prior to this admission - 2 small seizure last night at home - PRN Ativan for Abortive Seizures - She refused hospital brand phenytoin - Has had multiple epileptic seizures throughout the night but responded to PRN Ativan - decreasing in frequency - Will move her ICU - EEG on 02/23/18 -Consistent with localization related seizure disorder -The patient is having recurrent electroencephalographic subclinical seizures - Continue 1500 mg po BID Keppra and start phenytoin drip now--> stopped by pharmacy - restart today, 300mg BID after - Dilatin level again later today; goal at least 15 (10-20) - Levetiracetam level pending Generalized Weakness - She requires assistance due to Morbid Obesity - PT/OT - Recommending SNF placement Non-Compliance - Dilantin level 4.4 (10.-20) - Will optimize dose Resolved: 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 Phenytoin level low this AM Routine AM Labs Continue current plan High Fall Risk Aspiration/Seizure Precautions Continue PT/OT SW/CM for d/c planning - recommending SNF placement Code status:Full code; PCP: Vicky Salazar, Nurse practitioner
[2018-02-25] MEDS ORDERED: Magnesium Sulfate/Water 2 GM in Premix Bag 1 BAG IV ONE (14:28)
[2018-02-25] MEDS ORDERED: SODIUM CHLORIDE 0.9% IV ONE (14:29)
[2018-02-25] MEDS ORDERED: PHENYTOIN IV ONE (14:29)
[2018-02-25] MEDS ORDERED: Temazepam 15 MG Cap PO PRN (18:45)
[2018-02-26] MEDS: Acetaminophen 325 MG Tab PO PRN (02:27)
[2018-02-26] MEDS: Levothyroxine 75 MCG Tab PO SCH (06:08)
[2018-02-26] MEDS: levETIRAcetam 500 MG Tab PO SCH ×2 (08:30→20:12)
[2018-02-26] MEDS: Phenytoin 100 MG Cap.ER PO SCH ×2 (08:31→20:12)
[2018-02-26] MEDS: Furosemide 40 MG Tab PO SCH (08:31)
[2018-02-26] MEDS: Enoxaparin 40 MG/0.4 ML Syringe SUBCUT SCH ×2 (08:31→20:13)
--- NOTE | 2018-02-26 11:14 | PCM.PN ---
- General Info Date of Service: 02/26/18 Subjective Update: Slept a few hours after Restoril, had a bout of refusing to actively participate with her care last night after 2100 hour; see nursing notes. Functional Status: Reports: Pain Controlled, Tolerating Diet, Ambulating, Urinating - Review of Systems General: Reports: No Symptoms HEENT: Reports: No Symptoms Pulmonary: Reports: No Symptoms Cardiovascular: Reports: No Symptoms Gastrointestinal: Reports: No Symptoms Genitourinary: Reports: No Symptoms Musculoskeletal: Reports: No Symptoms Skin: Reports: No Symptoms Neurological: Reports: No Symptoms Psychiatric: Reports: No Symptoms - Patient Data Vitals - Most Recent: Last Vital Signs Temp 36.7 C 02/26/18 08:00 Pulse 85 02/26/18 04:00 Resp 18 02/26/18 08:00 BP 134/72 02/26/18 08:00 Pulse Ox 97 02/26/18 04:00 Weight - Most Recent: 151.727 kg I&O - Last 24 Hours: Intake & Output 02/25/18 02/26/18 02/26/18 22:59 06:59 14:59 Intake Total 640 250 Output Total 300 Balance 640 -50 Lab Results Last 24 Hours: Laboratory Results - last 24 hr 02/26/18 02/26/18 Range/Units 08:50 08:50 WBC 8.39 (3.98-10.04) K/mm3 RBC 4.64 (3.98-5.22) M/mm3 Hgb 14.5 (11.2-15.7) gm/L Hct 43.5 (34.1-44.9) % MCV 93.8 (79.4-94.8) fl MCH 31.3 (25.6-32.2) pg MCHC 33.3 (32.2-35.5) g/dl RDW Std Deviation 46.6 H (36.4-46.3) fL Plt Count 254 (182-369) K/mm3 MPV 8.4 L (9.4-12.3) fl Neut % (Auto) 56.9 (34.0-71.1) % Lymph % (Auto) 28.7 (19.3-51.7) % [place] % (Auto) 8.8 (4.7-12.5) % Eos % (Auto) 5.0 (0.7-5.8) Baso % (Auto) 0.2 (0.1-1.2) % Neut # (Auto) 4.77 (1.56-6.13) K/mm3 Lymph # (Auto) 2.41 (1.18-3.74) K/mm3 [place] # (Auto) 0.74 H (0.24-0.36) K/mm3 Eos # (Auto) 0.42 H (0.04-0.36) K/mm3 Baso # (Auto) 0.02 (0.01-0.08) K/mm3 Sodium 139 (136-145) mEq/L Potassium 4.0 (3.5-5.1) mEq/L Chloride 103 (98-107) mEq/L Carbon Dioxide 27 (21-32) mEq/L Anion Gap 13.0 (5-15) BUN 16 (7-18) mg/dL Creatinine 0.8 (0.55-1.02) mg/dL Est Cr Clr Drug Dosing 65.06 mL/min Estimated GFR (MDRD) > 60 (>60) mL/min BUN/Creatinine Ratio 20.0 H (14-18) Glucose 123 H (74-106) mg/dL Calcium 9.2 (8.5-10.1) mg/dL Magnesium 2.0 (1.8-2.4) mg/dl Med Orders - Current: Current Medications Acetaminophen (Tylenol) 650 mg PO Q4H PRN PRN Reason: Pain (Mild 1-3)/fever Last Admin: 02/26/18 02:27 Dose: 650 mg Hydrocodone Bitart/Acetaminophen ([place] 325-5 Mg) 1 tab PO Q4H PRN PRN Reason: Pain (moderate 4-6) Last Admin: 02/24/18 12:35 Dose: 1 tab Albuterol/Ipratropium (Duoneb 3.0-0.5 Mg/3 Ml) 3 ml NEB Q4H PRN PRN Reason: Shortness Of Breath/wheezing Bisacodyl (Dulcolax) 5 mg PO DAILY PRN PRN Reason: Constipation Last Admin: 02/24/18 08:30 Dose: 5 mg Docusate Sodium (Colace) 100 mg PO BID PRN PRN Reason: Constipation Enoxaparin Sodium (Lovenox) 40 mg SUBCUT Q12H [facility] Last Admin: 02/26/18 08:31 Dose: 40 mg Furosemide (Lasix) 40 mg PO DAILY [facility] Last Admin: 02/26/18 08:31 Dose: 40 mg Hydralazine HCl (Apresoline) 20 mg IVPUSH Q4H PRN PRN Reason: Hypertension Last Admin: 02/25/18 04:47 Dose: 20 mg Hydromorphone HCl (Dilaudid) 0.25 mg IVPUSH Q2H PRN PRN Reason: Pain (severe 7-10) Promethazine HCl 12.5 mg/ (Sodium Chloride) 50.5 mls @ 100 mls/hr IV Q6H PRN PRN Reason: Nausea/Vomiting Levetiracetam (Keppra) 1,500 mg PO BID [facility] Last Admin: 02/26/18 08:30 Dose: 1,500 mg Levothyroxine Sodium (Levothyroxine) 75 mcg PO ACBREAKFAST [facility] Last Admin: 02/26/18 06:08 Dose: 75 mcg Lorazepam (Ativan) 2 mg IVPUSH Q4H PRN PRN Reason: Seizures Last Admin: 02/25/18 08:40 Dose: 2 mg Metoprolol Tartrate (Lopressor) 5 mg IVPUSH Q4H PRN PRN Reason: Tachycardia Ondansetron HCl (Zofran) 4 mg IV Q6H PRN PRN Reason: Nausea/Vomiting Phenytoin Sodium (Phenytoin) 300 mg PO BID [facility] Last Admin: 02/26/18 08:31 Dose: 300 mg Polyethylene Glycol (Miralax) 17 gm PO DAILY PRN PRN Reason: Constipation Senna/Docusate Sodium (Senna Plus) 1 tab PO BID PRN PRN Reason: Constipation Sodium Chloride (Saline Flush) 10 ml FLUSH ASDIRECTED PRN PRN Reason: Keep Vein Open Last Admin: 02/20/18 17:48 Dose: 10 ml Temazepam (Restoril) 15 mg PO BEDTIME PRN PRN Reason: Insomnia Last Admin: 02/25/18 20:23 Dose: 15 mg Discontinued Medications Diazepam (Valium) 10 mg IV ONETIME STA Stop: 02/21/18 19:20 Last Admin: 02/21/18 20:16 Dose: Not Given Sodium Chloride (Normal Saline) 1,000 mls @ 999 mls/hr IV ONETIME ONE Stop: 02/20/18 18:24 Last Admin: 02/20/18 17:45 Dose: 999 mls/hr Levetiracetam 1,500 mg/ Sodium (Chloride) 115 mls @ 400 mls/hr IV ONETIME ONE Stop: 02/20/18 23:01 Last Admin: 02/20/18 23:14 Dose: 400 mls/hr Phenytoin Sodium 200 mg/ (Sodium Chloride) 104 mls @ 416 mls/hr IV ONETIME ONE Stop: 02/20/18 22:58 Last Admin: 02/20/18 23:39 Dose: 416 mls/hr Fosphenytoin Sodium 3,000 mg. (pe/ Sodium Chloride) 110 mls @ 150 mls/hr IV NOW ONE Stop: 02/21/18 19:39 Last Admin: 02/21/18 20:15 Dose: Not Given Levetiracetam 1,500 mg/ Sodium (Chloride) 115 mls @ 400 mls/hr IV ONETIME ONE Stop: 02/21/18 19:40 Last Admin: 02/21/18 20:10 Dose: 400 mls/hr Magnesium Sulfate 2 gm/ Premix 50 mls @ 25 mls/hr IV ONETIME ONE Stop: 02/22/18 10:59 Last Admin: 02/22/18 09:11 Dose: 25 mls/hr Phenytoin Sodium 1,530 mg/ (Sodium Chloride) 130.6 mls @ 130.6 mls/hr IV ONETIME ONE Stop: 02/23/18 07:34 Last Admin: 02/23/18 10:00 Dose: Not Given Phenytoin Sodium 1,500 mg/ (Sodium Chloride) 130 mls @ 130 mls/hr IV ONETIME ONE Stop: 02/23/18 09:59 Last Admin: 02/23/18 09:09 Dose: 130 mls/hr Phenytoin Sodium 1,500 mg/ (Sodium Chloride) 100 mls @ 100 mls/hr IV Q8H PRN PRN Reason: SEIZURES Phenytoin Sodium 1,500 mg/ (Sodium Chloride) 130 mls @ 130 mls/hr IV ONETIME ONE Stop: 02/24/18 11:14 Last Admin: 02/24/18 10:29 Dose: 130 mls/hr Magnesium Sulfate 2 gm/ Premix 50 mls @ 25 mls/hr IV ONETIME ONE Stop: 02/25/18 16:27 Last Admin: 02/25/18 16:36 Dose: 25 mls/hr Phenytoin Sodium 750 mg/ (Sodium Chloride) 65 mls @ 200 mls/hr IV ONETIME ONE Stop: 02/25/18 14:48 Last Admin: 02/25/18 16:14 Dose: 200 mls/hr Ketorolac Tromethamine (Toradol) 15 mg IVPUSH ONETIME ONE Stop: 02/20/18 18:37 Last Admin: 02/20/18 18:44 Dose: 15 mg Lorazepam (Ativan) 1 mg IVPUSH ONETIME ONE Stop: 02/20/18 17:24 Last Admin: 02/20/18 17:47 Dose: 1 mg Lorazepam (Ativan) 1 mg IVPUSH ONETIME ONE Stop: 02/20/18 22:51 Last Admin: 02/20/18 23:14 Dose: 1 mg Lorazepam (Ativan) 1 mg PO Q8H PRN PRN Reason: Seizures Last Admin: 02/21/18 13:30 Dose: 1 mg Lorazepam (Ativan) 1 mg PO ASDIRECTED PRN PRN Reason: Seizures Lorazepam (Ativan) 1 - 3 mg IV Q4H PRN; Protocol PRN Reason: Withdrawal Symptoms Lorazepam (Ativan) 5 mg IVPUSH ONETIME ONE Stop: 02/21/18 19:09 Last Admin: 02/21/18 19:16 Dose: 5 mg Magnesium Oxide (Magnesium Oxide) 400 mg PO ONETIME ONE Stop: 02/21/18 23:46 Last Admin: 02/21/18 23:36 Dose: Not Given Magnesium Sulfate (Pharmacy To Dose - Magnesium Replacement) 1 dose .XX ASDIRECTED [facility] Phenytoin Sodium (Phenytoin) 200 mg PO BEDTIME [facility] Last Admin: 02/21/18 20:28 Dose: Not Given Phenytoin Sodium (Phenytoin) 100 mg PO DAILY [facility] Last Admin: 02/21/18 09:14 Dose: Not Given Phenytoin Sodium (Phenytoin) 300 mg PO BEDTIME [facility] Last Admin: 02/22/18 20:46 Dose: Not Given Phenytoin Sodium (Phenytoin) 300 mg PO BEDTIME [facility] Potassium Chloride (Pharmacy To Dose - Potassium Replacement) 1 dose .XX ASDIRECTED [facility] - Exam Quality Assessment: Supplemental Oxygen, DVT Prophylaxis General: Alert, Oriented, No Acute Distress HEENT: Pupils Equal, Pupils Reactive, EOMI Neck: Trachea Midline, No JVD Lungs: Normal Respiratory Effort Cardiovascular: Regular Rate, Regular Rhythm GI/Abdominal Exam: Normal Bowel Sounds, Soft, Non-Tender, No Organomegaly, No Distention (Female) Exam: Deferred Back Exam: Normal Inspection Extremities: No Pedal Edema, Normal Capillary Refill Skin: Warm Neurological: No New Focal Deficit Psy/Mental Status: Alert, Other (zero SZ activity) - Problem List Review Problem List Initiated/Reviewed/Updated: Yes - My Orders Last 24 Hours: My Active Orders 02/25/18 10:16 Consult to Physician [CONS] Routine 02/25/18 10:17 Notify Provider Consults [RC] ASDIRECTED 02/25/18 14:34 URINALYSIS W/MICROSCOPIC [UA W/MICROSCOPIC] [URIN] Routine 02/25/18 18:45 Temazepam [Restoril] 15 mg PO BEDTIME PRN 02/27/18 05:00 DILANTIN,PHENYTOIN [CHEM] Routine - Plan Plan:: Assessment/Plan: Acute: Status Epilepticus-0 SZ for 26 hours - Hx/o Non compliance - Documented low Dilantin level on last ED visit prior to this admission - PRN Ativan for Abortive Seizures - She refused hospital brand phenytoin; refused meds last pm, 02/26. - Has had multiple epileptic seizures throughout the night but responded to PRN Ativan - decreasing in frequency - Will move her ICU - EEG on 02/23/18 -Consistent with localization related seizure disorder -The patient is having recurrent electroencephalographic subclinical seizures - Continue 1500 mg po BID Keppra and start phenytoin drip now--> stopped by pharmacy - restart today, 300mg BID after - Dilatin level again later today; goal at least 15 (10-20) - Levetiracetam level pending Generalized Weakness - She requires assistance due to Morbid Obesity - PT/OT - Recommending SNF placement Non-Compliance - Dilantin level 4.4 (10.-20) - Will optimize dose Resolved: 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 Phenytoin level--recheck 02/27. Routine AM Labs Continue current plan High Fall Risk Aspiration/Seizure Precautions Continue PT/OT SW/CM for d/c planning - recommending SNF placement Code status:Full code; PCP: Vicky Salazar, Nurse practitioner DC expected on 02/28. LOS>96 hours with SZ activity.
[2018-02-26] MEDS: LORazepam 2 MG/ML SDV IVPUSH PRN ×2 (14:45→14:49)
[2018-02-26] MEDS ORDERED: levETIRAcetam 2,000 MG in Sodium Chloride 0.9% 100 ML IV ONE (14:55)
[2018-02-26] MEDS: Temazepam 30 MG Cap PO PRN (20:13)
[2018-02-27] MEDS: Levothyroxine 75 MCG Tab PO SCH (05:36)
[2018-02-27] MEDS: levETIRAcetam 500 MG Tab PO SCH ×2 (08:26→20:34)
[2018-02-27] MEDS: Bisacodyl 5 MG Tab PO PRN (08:27)
[2018-02-27] MEDS: Furosemide 40 MG Tab PO SCH (08:27)
[2018-02-27] MEDS: Enoxaparin 40 MG/0.4 ML Syringe SUBCUT SCH ×2 (08:27→20:34)
[2018-02-27] MEDS: Phenytoin 100 MG Cap.ER PO SCH (08:27)
--- NOTE | 2018-02-27 12:05 | PCM.PN ---
- General Info Date of Service: 02/27/18 Subjective Update: SZ activity noted yesterday requiring Ativan 4 mg total; lab report documeneted elevated dilantin level, will hold for 24 hours then adjsut oral dose. Will need a repeat level on 03/01 Functional Status: Reports: Pain Controlled, Tolerating Diet, Ambulating, Urinating - Review of Systems General: Reports: Weakness HEENT: Reports: No Symptoms Pulmonary: Reports: No Symptoms Cardiovascular: Reports: No Symptoms Gastrointestinal: Reports: No Symptoms Genitourinary: Reports: No Symptoms Musculoskeletal: Reports: No Symptoms Skin: Reports: No Symptoms Neurological: Reports: Other (affect has changed after SZ activity 02/26) Psychiatric: Reports: No Symptoms - Patient Data Vitals - Most Recent: Last Vital Signs Temp 36.4 C 02/27/18 12:00 Pulse 90 02/27/18 04:00 Resp 16 02/27/18 12:00 BP 103/60 02/27/18 12:00 Pulse Ox 97 02/27/18 12:00 Weight - Most Recent: 151.953 kg I&O - Last 24 Hours: Intake & Output 02/26/18 02/27/18 02/27/18 22:59 06:59 14:59 Intake Total 600 500 Output Total 300 200 Balance 600 200 -200 Lab Results Last 24 Hours: Laboratory Results - last 24 hr 02/21/18 02/26/18 02/27/18 Range/Units 19:45 13:20 06:10 WBC 7.36 (3.98-10.04) K/mm3 RBC 4.53 (3.98-5.22) M/mm3 Hgb 14.2 (11.2-15.7) gm/L Hct 43.0 (34.1-44.9) % MCV 94.9 H (79.4-94.8) fl MCH 31.3 (25.6-32.2) pg MCHC 33.0 (32.2-35.5) g/dl RDW Std Deviation 46.6 H (36.4-46.3) fL Plt Count 247 (182-369) K/mm3 MPV 8.5 L (9.4-12.3) fl Neut % (Auto) 51.7 (34.0-71.1) % Lymph % (Auto) 32.6 (19.3-51.7) % [place] % (Auto) 9.2 (4.7-12.5) % Eos % (Auto) 5.8 (0.7-5.8) Baso % (Auto) 0.3 (0.1-1.2) % Neut # (Auto) 3.80 (1.56-6.13) K/mm3 Lymph # (Auto) 2.40 (1.18-3.74) K/mm3 [place] # (Auto) 0.68 H (0.24-0.36) K/mm3 Eos # (Auto) 0.43 H (0.04-0.36) K/mm3 Baso # (Auto) 0.02 (0.01-0.08) K/mm3 Sodium (136-145) mEq/L Potassium (3.5-5.1) mEq/L Chloride (98-107) mEq/L Carbon Dioxide (21-32) mEq/L Anion Gap (5-15) BUN (7-18) mg/dL Creatinine (0.55-1.02) mg/dL Est Cr Clr Drug Dosing mL/min Estimated GFR (MDRD) (>60) mL/min BUN/Creatinine Ratio (14-18) Glucose (74-106) mg/dL Calcium (8.5-10.1) mg/dL Magnesium (1.8-2.4) mg/dl Urine Color Yellow (Yellow) Urine Appearance Clear (Clear) Urine pH 6.5 (5.0-8.0) Ur Specific [place] 1.025 (1.005-1.030) Urine Protein Negative (Negative) Urine Glucose (UA) Negative (Negative) Urine Ketones Negative (Negative) Urine Occult Blood Trace-intact H (Negative) Urine Nitrite Negative (Negative) Urine Bilirubin Negative (Negative) Urine Urobilinogen 0.2 (0.2-1.0) Ur Leukocyte Esterase Trace H (Negative) Urine RBC 0-5 (0-5) /hpf Urine WBC 5-10 H (0-5) /hpf Urine WBC Clumps Rare (NOT SEEN) /hpf Ur Epithelial Cells 5-10 H (0-5) /hpf Urine Bacteria Few (FEW) /hpf Urine Mucus Few (FEW) /hpf Phenytoin (10.0-20.0) ug/mL Levetiracetam 24.4 (10.0-40.0) ug/mL 02/27/18 02/27/18 Range/Units 06:10 06:10 WBC (3.98-10.04) K/mm3 RBC (3.98-5.22) M/mm3 Hgb (11.2-15.7) gm/L Hct (34.1-44.9) % MCV (79.4-94.8) fl MCH (25.6-32.2) pg MCHC (32.2-35.5) g/dl RDW Std Deviation (36.4-46.3) fL Plt Count (182-369) K/mm3 MPV (9.4-12.3) fl Neut % (Auto) (34.0-71.1) % Lymph % (Auto) (19.3-51.7) % [place] % (Auto) (4.7-12.5) % Eos % (Auto) (0.7-5.8) Baso % (Auto) (0.1-1.2) % Neut # (Auto) (1.56-6.13) K/mm3 Lymph # (Auto) (1.18-3.74) K/mm3 [place] # (Auto) (0.24-0.36) K/mm3 Eos # (Auto) (0.04-0.36) K/mm3 Baso # (Auto) (0.01-0.08) K/mm3 Sodium 140 (136-145) mEq/L Potassium 4.0 (3.5-5.1) mEq/L Chloride 105 (98-107) mEq/L Carbon Dioxide 27 (21-32) mEq/L Anion Gap 12.0 (5-15) BUN 17 (7-18) mg/dL Creatinine 0.9 (0.55-1.02) mg/dL Est Cr Clr Drug Dosing 57.83 mL/min Estimated GFR (MDRD) > 60 (>60) mL/min BUN/Creatinine Ratio 18.9 H (14-18) Glucose 127 H (74-106) mg/dL Calcium 9.3 (8.5-10.1) mg/dL Magnesium 2.0 (1.8-2.4) mg/dl Urine Color (Yellow) Urine Appearance (Clear) Urine pH (5.0-8.0) Ur Specific [place] (1.005-1.030) Urine Protein (Negative) Urine Glucose (UA) (Negative) Urine Ketones (Negative) Urine Occult Blood (Negative) Urine Nitrite (Negative) Urine Bilirubin (Negative) Urine Urobilinogen (0.2-1.0) Ur Leukocyte Esterase (Negative) Urine RBC (0-5) /hpf Urine WBC (0-5) /hpf Urine WBC Clumps (NOT SEEN) /hpf Ur Epithelial Cells (0-5) /hpf Urine Bacteria (FEW) /hpf Urine Mucus (FEW) /hpf Phenytoin 20.6 H* (10.0-20.0) ug/mL Levetiracetam (10.0-40.0) ug/mL Med Orders - Current: Current Medications Acetaminophen (Tylenol) 650 mg PO Q4H PRN PRN Reason: Pain (Mild 1-3)/fever Last Admin: 02/26/18 02:27 Dose: 650 mg Hydrocodone Bitart/Acetaminophen ([place] 325-5 Mg) 1 tab PO Q4H PRN PRN Reason: Pain (moderate 4-6) Last Admin: 02/24/18 12:35 Dose: 1 tab Albuterol/Ipratropium (Duoneb 3.0-0.5 Mg/3 Ml) 3 ml NEB Q4H PRN PRN Reason: Shortness Of Breath/wheezing Bisacodyl (Dulcolax) 5 mg PO DAILY PRN PRN Reason: Constipation Last Admin: 02/27/18 08:27 Dose: 5 mg Docusate Sodium (Colace) 100 mg PO BID PRN PRN Reason: Constipation Enoxaparin Sodium (Lovenox) 40 mg SUBCUT Q12H [facility] Last Admin: 02/27/18 08:27 Dose: 40 mg Furosemide (Lasix) 40 mg PO DAILY [facility] Last Admin: 02/27/18 08:27 Dose: 40 mg Hydralazine HCl (Apresoline) 20 mg IVPUSH Q4H PRN PRN Reason: Hypertension Last Admin: 02/25/18 04:47 Dose: 20 mg Hydromorphone HCl (Dilaudid) 0.25 mg IVPUSH Q2H PRN PRN Reason: Pain (severe 7-10) Promethazine HCl 12.5 mg/ (Sodium Chloride) 50.5 mls @ 100 mls/hr IV Q6H PRN PRN Reason: Nausea/Vomiting Levetiracetam (Keppra) 1,500 mg PO BID [facility] Last Admin: 02/27/18 08:26 Dose: 1,500 mg Levothyroxine Sodium (Levothyroxine) 75 mcg PO ACBREAKFAST [facility] Last Admin: 02/27/18 05:36 Dose: 75 mcg Lorazepam (Ativan) 2 mg IVPUSH Q4H PRN PRN Reason: Seizures Last Admin: 02/26/18 14:49 Dose: 2 mg Metoprolol Tartrate (Lopressor) 5 mg IVPUSH Q4H PRN PRN Reason: Tachycardia Ondansetron HCl (Zofran) 4 mg IV Q6H PRN PRN Reason: Nausea/Vomiting Polyethylene Glycol (Miralax) 17 gm PO DAILY PRN PRN Reason: Constipation Senna/Docusate Sodium (Senna Plus) 1 tab PO BID PRN PRN Reason: Constipation Sodium Chloride (Saline Flush) 10 ml FLUSH ASDIRECTED PRN PRN Reason: Keep Vein Open Last Admin: 02/20/18 17:48 Dose: 10 ml Temazepam (Restoril) 30 mg PO BEDTIME PRN PRN Reason: Insomnia Last Admin: 02/26/18 20:13 Dose: 30 mg Discontinued Medications Diazepam (Valium) 10 mg IV ONETIME STA Stop: 02/21/18 19:20 Last Admin: 02/21/18 20:16 Dose: Not Given Sodium Chloride (Normal Saline) 1,000 mls @ 999 mls/hr IV ONETIME ONE Stop: 02/20/18 18:24 Last Admin: 02/20/18 17:45 Dose: 999 mls/hr Levetiracetam 1,500 mg/ Sodium (Chloride) 115 mls @ 400 mls/hr IV ONETIME ONE Stop: 02/20/18 23:01 Last Admin: 02/20/18 23:14 Dose: 400 mls/hr Phenytoin Sodium 200 mg/ (Sodium Chloride) 104 mls @ 416 mls/hr IV ONETIME ONE Stop: 02/20/18 22:58 Last Admin: 02/20/18 23:39 Dose: 416 mls/hr Fosphenytoin Sodium 3,000 mg. (pe/ Sodium Chloride) 110 mls @ 150 mls/hr IV NOW ONE Stop: 02/21/18 19:39 Last Admin: 02/21/18 20:15 Dose: Not Given Levetiracetam 1,500 mg/ Sodium (Chloride) 115 mls @ 400 mls/hr IV ONETIME ONE Stop: 02/21/18 19:40 Last Admin: 02/21/18 20:10 Dose: 400 mls/hr Magnesium Sulfate 2 gm/ Premix 50 mls @ 25 mls/hr IV ONETIME ONE Stop: 02/22/18 10:59 Last Admin: 02/22/18 09:11 Dose: 25 mls/hr Phenytoin Sodium 1,530 mg/ (Sodium Chloride) 130.6 mls @ 130.6 mls/hr IV ONETIME ONE Stop: 02/23/18 07:34 Last Admin: 02/23/18 10:00 Dose: Not Given Phenytoin Sodium 1,500 mg/ (Sodium Chloride) 130 mls @ 130 mls/hr IV ONETIME ONE Stop: 02/23/18 09:59 Last Admin: 02/23/18 09:09 Dose: 130 mls/hr Phenytoin Sodium 1,500 mg/ (Sodium Chloride) 100 mls @ 100 mls/hr IV Q8H PRN PRN Reason: SEIZURES Phenytoin Sodium 1,500 mg/ (Sodium Chloride) 130 mls @ 130 mls/hr IV ONETIME ONE Stop: 02/24/18 11:14 Last Admin: 02/24/18 10:29 Dose: 130 mls/hr Magnesium Sulfate 2 gm/ Premix 50 mls @ 25 mls/hr IV ONETIME ONE Stop: 02/25/18 16:27 Last Admin: 02/25/18 16:36 Dose: 25 mls/hr Phenytoin Sodium 750 mg/ (Sodium Chloride) 65 mls @ 200 mls/hr IV ONETIME ONE Stop: 02/25/18 14:48 Last Admin: 02/25/18 16:14 Dose: 200 mls/hr Levetiracetam 2,000 mg/ Sodium (Chloride) 120 mls @ 400 mls/hr IV ONETIME ONE Stop: 02/26/18 15:09 Last Admin: 02/26/18 15:36 Dose: 400 mls/hr Ketorolac Tromethamine (Toradol) 15 mg IVPUSH ONETIME ONE Stop: 02/20/18 18:37 Last Admin: 02/20/18 18:44 Dose: 15 mg Lorazepam (Ativan) 1 mg IVPUSH ONETIME ONE Stop: 02/20/18 17:24 Last Admin: 02/20/18 17:47 Dose: 1 mg Lorazepam (Ativan) 1 mg IVPUSH ONETIME ONE Stop: 02/20/18 22:51 Last Admin: 02/20/18 23:14 Dose: 1 mg Lorazepam (Ativan) 1 mg PO Q8H PRN PRN Reason: Seizures Last Admin: 02/21/18 13:30 Dose: 1 mg Lorazepam (Ativan) 1 mg PO ASDIRECTED PRN PRN Reason: Seizures Lorazepam (Ativan) 1 - 3 mg IV Q4H PRN; Protocol PRN Reason: Withdrawal Symptoms Lorazepam (Ativan) 5 mg IVPUSH ONETIME ONE Stop: 02/21/18 19:09 Last Admin: 02/21/18 19:16 Dose: 5 mg Magnesium Oxide (Magnesium Oxide) 400 mg PO ONETIME ONE Stop: 02/21/18 23:46 Last Admin: 02/21/18 23:36 Dose: Not Given Magnesium Sulfate (Pharmacy To Dose - Magnesium Replacement) 1 dose .XX ASDIRECTED [facility] Phenytoin Sodium (Phenytoin) 200 mg PO BEDTIME [facility] Last Admin: 02/21/18 20:28 Dose: Not Given Phenytoin Sodium (Phenytoin) 100 mg PO DAILY [facility] Last Admin: 02/21/18 09:14 Dose: Not Given Phenytoin Sodium (Phenytoin) 300 mg PO BEDTIME [facility] Last Admin: 02/22/18 20:46 Dose: Not Given Phenytoin Sodium (Phenytoin) 300 mg PO BEDTIME [facility] Phenytoin Sodium (Phenytoin) 300 mg PO BID [facility] Last Admin: 02/27/18 08:27 Dose: 300 mg Potassium Chloride (Pharmacy To Dose - Potassium Replacement) 1 dose .XX ASDIRECTED [facility] Temazepam (Restoril) 15 mg PO BEDTIME PRN PRN Reason: Insomnia Last Admin: 02/25/18 20:23 Dose: 15 mg - Exam Quality Assessment: Supplemental Oxygen, DVT Prophylaxis General: Alert, Oriented, Cooperative, No Acute Distress HEENT: Pupils Equal, Pupils Reactive, EOMI Neck: Trachea Midline, No JVD Lungs: Normal Respiratory Effort Cardiovascular: Regular Rate, Regular Rhythm GI/Abdominal Exam: Normal Bowel Sounds, Soft, Non-Tender, No Organomegaly, No Distention (Female) Exam: Deferred Back Exam: Normal Inspection Extremities: Normal Inspection, Normal Capillary Refill Skin: Warm Neurological: No New Focal Deficit Psy/Mental Status: Alert, Labile Mood - Problem List Review Problem List Initiated/Reviewed/Updated: Yes - My Orders Last 24 Hours: My Active Orders 02/26/18 13:20 URINALYSIS W/MICROSCOPIC [UA W/MICROSCOPIC] [URIN] Routine 02/26/18 18:02 Temazepam [Restoril] 30 mg PO BEDTIME PRN - Plan Plan:: Assessment/Plan: Acute: Status Epilepticus-0 SZ for 26 hours; SZ activity yesterday received Ativan 4 mg IV - Hx/o Non compliance - Documented low Dilantin level, elevated, will hold 24 hours and adjust the dose - PRN Ativan for Abortive Seizures - She refused hospital brand phenytoin; refused meds last pm, 02/26. - Has had multiple epileptic seizures throughout the night but responded to PRN Ativan - decreasing in frequency - Will move her ICU - EEG on 02/23/18 -Consistent with localization related seizure disorder -The patient is having recurrent electroencephalographic subclinical seizures - Continue 1500 mg po BID Keppra and start phenytoin drip now--> stopped by pharmacy - restart today, 300mg BID after - Dilatin level again later today; goal at least 15 (10-20) - Levetiracetam level pending Generalized Weakness - She requires assistance due to Morbid Obesity - PT/OT - Recommending SNF placement Non-Compliance - Dilantin level 4.4 (10.-20); 20.9, total - Will optimize dose Resolved: 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 Phenytoin level--recheck 02/27; adjustment of SZ meds Routine AM Labs Continue current plan High Fall Risk Aspiration/Seizure Precautions Continue PT/OT SW/CM for d/c planning - recommending SNF placement Code status:Full code; PCP: Vicky Salazar, Nurse practitioner LOS>96 hours with SZ activity.
[2018-02-27] MEDS: Temazepam 30 MG Cap PO PRN (20:34)
[2018-02-28] MEDS: Acetaminophen 325 MG Tab PO PRN ×2 (03:46→21:04)
[2018-02-28] MEDS: Furosemide 40 MG Tab PO SCH (08:28)
[2018-02-28] MEDS: Levothyroxine 75 MCG Tab PO SCH (08:29)
[2018-02-28] MEDS: levETIRAcetam 500 MG Tab PO SCH ×2 (08:29→21:04)
[2018-02-28] MEDS: Enoxaparin 40 MG/0.4 ML Syringe SUBCUT SCH ×2 (08:29→21:03)
--- NOTE | 2018-02-28 08:44 | CONS ---
CONSULTING PHYSICIAN: Michel Welch MD DATE OF CONSULTATION: 02/25/2018 PSYCHIATRY CONSULTATION IDENTIFICATION: The patient is a 52-year-old female who is admitted to the inpatient MICU at [facility]. She is seen for psychiatric consultation. CHIEF COMPLAINT: "I ended up with flu and stopped taking my medications for seizures." HISTORY OF PRESENT ILLNESS: The patient is a 52-year-old female, who reports that she has been treated with a regimen of Keppra and Dilantin for epilepsy. She states that she got really sick with flu, "and I stopped taking my medications and I had a bunch of seizures." She states that she is generally medication compliant, but she got so sick she just could not take her medications. She also states her mood is "pretty good when I am not in the hospital." She denies that she is suicidal or homicidal. She denies any psychotic, delusional, or paranoid symptoms. She states "I think everything is fine with what I am taking" from a psychiatric and medical standpoint. She states she just wants to get better and get back home. She states that the reason she has the seizures which she states are "grand mal mostly with some focal seizure episodes" is because she had brain cancer back in 96 and had to have surgery and chemotherapy. She states that since that time she has been struggling with a seizure disorder. She reports no illicit substance use or excessive alcohol use complicating the clinical picture. MEDICATIONS: At time of presentation: 1. Keppra. 2. Dilantin. 3. Levothyroxine. ALLERGIES: 1. Codeine. 2. Latex. PAST MEDICAL HISTORY: 1. Seizure disorder, grand mal type. 2. Hypothyroidism. 3. History of edema. 4. Status post brain cancer in 96. REVIEW OF SYSTEMS: Aside from neuro and endocrine, all other major organ systems are negative at this point in time for acute difficulties or complications. FAMILY PSYCHIATRIC AND CD HISTORY: None reported. PAST PSYCHIATRIC AND CD HISTORY: Patient reports one psychiatric hospitalization in the mid 90s secondary to an overdose attempt. She states this is her only suicide attempt. She reports no self-injurious behavior history. Denies any chemical dependency treatment history and denies any illicit substance use or excessive alcohol use history. She states that her primary outpatient care provider is a nurse practitioner, Vicky Salazar and neurologist, Dr. Braga. SOCIAL HISTORY: The patient was born and raised in the [place], [place]. She is the oldest of 3 siblings having 2 younger sisters. She moved to [place] about 4-1/2 years ago to be near her family. She lives in [place] by herself. She is currently on disability secondary to the brain cancer. She is twice, twice and not involved in any current relationships at this point in time. Denies any prior service or any current legal difficulties. She is Christianity Adventism in terms of her opal formation. MENTAL STATUS EXAM: The patient is a 52-year-old white female in no apparent distress. Speech is regular rate and rhythm. The patient is cognitively oriented. Psychomotor activity is within normal limits. There is no abnormal motor movements or tics observed. Gait and station are not observed. This patient is lying in bed for the purposes of the inpatient consult. There is no behavioral or stated evidence of acute suicidal or homicidal ideation or acute psychotic, delusional, or paranoid symptoms. Thought processes are organized. There are no manic symptoms or loose associations evident. Judgment and insight appear unimpaired at this point in time. Motivation for help appears fair to good. VITAL SIGNS: 108/86, 94, 23, and 97.6 degrees. IMPRESSION: Andrews I: 1. Depression, not otherwise specified, F32.9. 2. Suspected cognitive changes secondary to the patient's brain cancer and surgery. 3. Rule out bipolar affective disease, not otherwise specified. Andrews II: Suspected personality changes secondary to patient's brain cancer and surgery. Andrews III: 1. Seizure disorder grand mal type. 2. Hypothyroidism. 3. History of edema. 4. Status post brain cancer in 96 with subsequent surgery and chemotherapy. Andrews IV: Severe. Andrews V: 60. PLAN: 1. Recommend that primary inpatient medical treatment team to continue current treatment plan to help the patient recover from her flu and obtain control of her seizure disorder. 2. Recommend pastoral guidance while patient is on the unit. 3. No psychiatric intervention appears indicated at this point in time as the patient is cognitively oriented x3 and denied any symptoms of depression and is not wanting any treatment at this point in time for psychiatric purposes. 4. We will continue follow up with the patient on an as-needed basis while she remains on the inpatient MICU. 5. We will follow up with the patient sooner if any complications in the interim. 6. Recommend that when patient is medically stabilized, she be transferred to possible transitional care setting so she can be further strengthened physically before being transitioned back into her home setting. 7. Crisis plan is in place. JESICA /[id number]
--- NOTE | 2018-02-28 14:43 | PCM.PN ---
- General Info Date of Service: 02/28/18 Admission Dx/Problem (Free Text): Seizure Disorder Subjective Update: In to see Ines today. She is lying in bed. She is very sleepy and difficult to arouse. Overall she is doing quite well. She has no complaints. She has been sleeping well. Good appetite. Ambulating. Pain is controlled. No seizure since Tuesday. Urinating. Incentive Spirometry. No concerns from nursing. Her appetite is returning. She will most likely be DCd to [facility] or [facility] tomorrow. SZ activity noted yesterday requiring Ativan 4 mg total; lab report documented elevated Dilantin level, will hold for 24 hours then adjust oral dose. Will need a repeat level on 03/01 Functional Status: Reports: Pain Controlled, Tolerating Diet, Ambulating, Urinating - Review of Systems General: Reports: No Symptoms HEENT: Reports: No Symptoms Pulmonary: Reports: No Symptoms Cardiovascular: Reports: No Symptoms Gastrointestinal: Reports: No Symptoms. Denies: Diarrhea, Nausea, Vomiting Genitourinary: Reports: No Symptoms Musculoskeletal: Reports: No Symptoms Skin: Reports: No Symptoms Neurological: Reports: No Symptoms. Denies: Confusion, Trouble Speaking, Difficulty Walking Psychiatric: Reports: No Symptoms. Denies: Confusion - Patient Data Vitals - Most Recent: Last Vital Signs Temp 97.5 F 02/28/18 12:00 Pulse 84 02/28/18 08:00 Resp 18 02/28/18 12:00 BP 130/90 02/28/18 12:00 Pulse Ox 95 02/28/18 12:00 Weight - Most Recent: 329 lb I&O - Last 24 Hours: Intake & Output 02/27/18 02/28/18 02/28/18 22:59 06:59 14:59 Intake Total 900 700 0 Output Total 550 Balance 900 150 0 Lab Results Last 24 Hours: Laboratory Results - last 24 hr 02/28/18 02/28/18 Range/Units 05:05 05:05 WBC 8.32 (3.98-10.04) K/mm3 RBC 4.34 (3.98-5.22) M/mm3 Hgb 14.0 (11.2-15.7) gm/L Hct 41.2 (34.1-44.9) % MCV 94.9 H (79.4-94.8) fl MCH 32.3 H (25.6-32.2) pg MCHC 34.0 (32.2-35.5) g/dl RDW Std Deviation 47.0 H (36.4-46.3) fL Plt Count 264 (182-369) K/mm3 MPV 8.8 L (9.4-12.3) fl Neut % (Auto) 48.8 (34.0-71.1) % Lymph % (Auto) 35.5 (19.3-51.7) % Stokes % (Auto) 10.0 (4.7-12.5) % Eos % (Auto) 5.5 (0.7-5.8) Baso % (Auto) 0.2 (0.1-1.2) % Neut # (Auto) 4.06 (1.56-6.13) K/mm3 Lymph # (Auto) 2.95 (1.18-3.74) K/mm3 Stokes # (Auto) 0.83 H (0.24-0.36) K/mm3 Eos # (Auto) 0.46 H (0.04-0.36) K/mm3 Baso # (Auto) 0.02 (0.01-0.08) K/mm3 Sodium 139 (136-145) mEq/L Potassium 3.9 (3.5-5.1) mEq/L Chloride 104 (98-107) mEq/L Carbon Dioxide 26 (21-32) mEq/L Anion Gap 12.9 (5-15) BUN 16 (7-18) mg/dL Creatinine 0.8 (0.55-1.02) mg/dL Est Cr Clr Drug Dosing 65.06 mL/min Estimated GFR (MDRD) > 60 (>60) mL/min BUN/Creatinine Ratio 20.0 H (14-18) Glucose 112 H (74-106) mg/dL Calcium 9.0 (8.5-10.1) mg/dL Magnesium 1.8 (1.8-2.4) mg/dl Med Orders - Current: Current Medications Acetaminophen (Tylenol) 650 mg PO Q4H PRN PRN Reason: Pain (Mild 1-3)/fever Last Admin: 02/28/18 03:46 Dose: 650 mg Hydrocodone Bitart/Acetaminophen (Daphne 325-5 Mg) 1 tab PO Q4H PRN PRN Reason: Pain (moderate 4-6) Last Admin: 02/24/18 12:35 Dose: 1 tab Albuterol/Ipratropium (Duoneb 3.0-0.5 Mg/3 Ml) 3 ml NEB Q4H PRN PRN Reason: Shortness Of Breath/wheezing Bisacodyl (Dulcolax) 5 mg PO DAILY PRN PRN Reason: Constipation Last Admin: 02/27/18 08:27 Dose: 5 mg Docusate Sodium (Colace) 100 mg PO BID PRN PRN Reason: Constipation Enoxaparin Sodium (Lovenox) 40 mg SUBCUT Q12H [facility] Last Admin: 02/28/18 08:29 Dose: 40 mg Furosemide (Lasix) 40 mg PO DAILY [facility] Last Admin: 02/28/18 08:28 Dose: 40 mg Hydralazine HCl (Apresoline) 20 mg IVPUSH Q4H PRN PRN Reason: Hypertension Last Admin: 02/25/18 04:47 Dose: 20 mg Hydromorphone HCl (Dilaudid) 0.25 mg IVPUSH Q2H PRN PRN Reason: Pain (severe 7-10) Promethazine HCl 12.5 mg/ (Sodium Chloride) 50.5 mls @ 100 mls/hr IV Q6H PRN PRN Reason: Nausea/Vomiting Levetiracetam (Keppra) 1,500 mg PO BID [facility] Last Admin: 02/28/18 08:29 Dose: 1,500 mg Levothyroxine Sodium (Levothyroxine) 75 mcg PO ACBREAKFAST [facility] Last Admin: 02/28/18 08:29 Dose: 75 mcg Lorazepam (Ativan) 2 mg IVPUSH Q4H PRN PRN Reason: Seizures Last Admin: 02/26/18 14:49 Dose: 2 mg Metoprolol Tartrate (Lopressor) 5 mg IVPUSH Q4H PRN PRN Reason: Tachycardia Ondansetron HCl (Zofran) 4 mg IV Q6H PRN PRN Reason: Nausea/Vomiting Phenytoin Sodium (Phenytoin) 100 mg PO BEDTIME [facility] Polyethylene Glycol (Miralax) 17 gm PO DAILY PRN PRN Reason: Constipation Senna/Docusate Sodium (Senna Plus) 1 tab PO BID PRN PRN Reason: Constipation Sodium Chloride (Saline Flush) 10 ml FLUSH ASDIRECTED PRN PRN Reason: Keep Vein Open Last Admin: 02/20/18 17:48 Dose: 10 ml Temazepam (Restoril) 30 mg PO BEDTIME PRN PRN Reason: Insomnia Last Admin: 02/27/18 20:34 Dose: 30 mg Discontinued Medications Diazepam (Valium) 10 mg IV ONETIME STA Stop: 02/21/18 19:20 Last Admin: 02/21/18 20:16 Dose: Not Given Sodium Chloride (Normal Saline) 1,000 mls @ 999 mls/hr IV ONETIME ONE Stop: 02/20/18 18:24 Last Admin: 02/20/18 17:45 Dose: 999 mls/hr Levetiracetam 1,500 mg/ Sodium (Chloride) 115 mls @ 400 mls/hr IV ONETIME ONE Stop: 02/20/18 23:01 Last Admin: 02/20/18 23:14 Dose: 400 mls/hr Phenytoin Sodium 200 mg/ (Sodium Chloride) 104 mls @ 416 mls/hr IV ONETIME ONE Stop: 02/20/18 22:58 Last Admin: 02/20/18 23:39 Dose: 416 mls/hr Fosphenytoin Sodium 3,000 mg. (pe/ Sodium Chloride) 110 mls @ 150 mls/hr IV NOW ONE Stop: 02/21/18 19:39 Last Admin: 02/21/18 20:15 Dose: Not Given Levetiracetam 1,500 mg/ Sodium (Chloride) 115 mls @ 400 mls/hr IV ONETIME ONE Stop: 02/21/18 19:40 Last Admin: 02/21/18 20:10 Dose: 400 mls/hr Magnesium Sulfate 2 gm/ Premix 50 mls @ 25 mls/hr IV ONETIME ONE Stop: 02/22/18 10:59 Last Admin: 02/22/18 09:11 Dose: 25 mls/hr Phenytoin Sodium 1,530 mg/ (Sodium Chloride) 130.6 mls @ 130.6 mls/hr IV ONETIME ONE Stop: 02/23/18 07:34 Last Admin: 02/23/18 10:00 Dose: Not Given Phenytoin Sodium 1,500 mg/ (Sodium Chloride) 130 mls @ 130 mls/hr IV ONETIME ONE Stop: 02/23/18 09:59 Last Admin: 02/23/18 09:09 Dose: 130 mls/hr Phenytoin Sodium 1,500 mg/ (Sodium Chloride) 100 mls @ 100 mls/hr IV Q8H PRN PRN Reason: SEIZURES Phenytoin Sodium 1,500 mg/ (Sodium Chloride) 130 mls @ 130 mls/hr IV ONETIME ONE Stop: 02/24/18 11:14 Last Admin: 02/24/18 10:29 Dose: 130 mls/hr Magnesium Sulfate 2 gm/ Premix 50 mls @ 25 mls/hr IV ONETIME ONE Stop: 02/25/18 16:27 Last Admin: 02/25/18 16:36 Dose: 25 mls/hr Phenytoin Sodium 750 mg/ (Sodium Chloride) 65 mls @ 200 mls/hr IV ONETIME ONE Stop: 02/25/18 14:48 Last Admin: 02/25/18 16:14 Dose: 200 mls/hr Levetiracetam 2,000 mg/ Sodium (Chloride) 120 mls @ 400 mls/hr IV ONETIME ONE Stop: 02/26/18 15:09 Last Admin: 02/26/18 15:36 Dose: 400 mls/hr Ketorolac Tromethamine (Toradol) 15 mg IVPUSH ONETIME ONE Stop: 02/20/18 18:37 Last Admin: 02/20/18 18:44 Dose: 15 mg Lorazepam (Ativan) 1 mg IVPUSH ONETIME ONE Stop: 02/20/18 17:24 Last Admin: 02/20/18 17:47 Dose: 1 mg Lorazepam (Ativan) 1 mg IVPUSH ONETIME ONE Stop: 02/20/18 22:51 Last Admin: 02/20/18 23:14 Dose: 1 mg Lorazepam (Ativan) 1 mg PO Q8H PRN PRN Reason: Seizures Last Admin: 02/21/18 13:30 Dose: 1 mg Lorazepam (Ativan) 1 mg PO ASDIRECTED PRN PRN Reason: Seizures Lorazepam (Ativan) 1 - 3 mg IV Q4H PRN; Protocol PRN Reason: Withdrawal Symptoms Lorazepam (Ativan) 5 mg IVPUSH ONETIME ONE Stop: 02/21/18 19:09 Last Admin: 02/21/18 19:16 Dose: 5 mg Magnesium Oxide (Magnesium Oxide) 400 mg PO ONETIME ONE Stop: 02/21/18 23:46 Last Admin: 02/21/18 23:36 Dose: Not Given Magnesium Sulfate (Pharmacy To Dose - Magnesium Replacement) 1 dose .XX ASDIRECTED [facility] Phenytoin Sodium (Phenytoin) 200 mg PO BEDTIME [facility] Last Admin: 02/21/18 20:28 Dose: Not Given Phenytoin Sodium (Phenytoin) 100 mg PO DAILY [facility] Last Admin: 02/21/18 09:14 Dose: Not Given Phenytoin Sodium (Phenytoin) 300 mg PO BEDTIME [facility] Last Admin: 02/22/18 20:46 Dose: Not Given Phenytoin Sodium (Phenytoin) 300 mg PO BEDTIME [facility]ESS[facility] Phenytoin Sodium (Phenytoin) 300 mg PO BID [facility] Last Admin: 02/27/18 08:27 Dose: 300 mg Potassium Chloride (Pharmacy To Dose - Potassium Replacement) 1 dose .XX ASDIRECTED [facility] Temazepam (Restoril) 15 mg PO BEDTIME PRN PRN Reason: Insomnia Last Admin: 02/25/18 20:23 Dose: 15 mg - Exam Quality Assessment: Supplemental Oxygen (CPAP), DVT Prophylaxis General: Alert, Oriented, Cooperative, No Acute Distress HEENT: Pupils Equal, Pupils Reactive, EOMI, Mucous Membr. Moist/[place] Neck: Supple Lungs: Clear to Auscultation, Normal Respiratory Effort Cardiovascular: Regular Rate, Regular Rhythm GI/Abdominal Exam: Normal Bowel Sounds, Soft, Non-Tender, No Organomegaly, No Distention, No Abnormal Bruit, No Mass, Pelvis Stable (Female) Exam: Deferred Back Exam: Normal Inspection, Full Range of Motion Extremities: Normal Inspection, Normal Range of Motion, Non-Tender, Normal Capillary Refill, Pedal Edema (no pitting, diffuse swelling) Peripheral Pulses: 1+: Posterior Tibial (L), Posterior Tibial (R), Dorsalis Pedis (L), Dorsalis Pedis (R) Skin: Warm, Dry, Intact Neurological: No New Focal Deficit Psy/Mental Status: Alert, Normal Affect, Normal Mood - Problem List Review Problem List Initiated/Reviewed/Updated: Yes - Plan Plan:: Assessment/Plan: Acute: Status Epilepticus-0 SZ for 26 hours; SZ activity yesterday received Ativan 4 mg IV - Hx/o Non compliance - Documented low Dilantin level, elevated, will hold 24 hours and adjust the dose - PRN Ativan for Abortive Seizures - She refused hospital brand phenytoin; refused meds last pm, 02/26. - Has had multiple epileptic seizures throughout the night but responded to PRN Ativan - decreasing in frequency - Will move her ICU - EEG on 02/23/18 -Consistent with localization related seizure disorder -The patient is having recurrent electroencephalographic subclinical seizures - Continue 1500 mg po BID Keppra and start phenytoin drip now--> stopped by pharmacy - restart Tuesday, 100mg at bedtime - Dilantin level 20.6; goal at least 15 (10-20) - Levetiracetam--> 24.4 - Adjust seizure medication as needed Generalized Weakness - She requires assistance due to Morbid Obesity - PT/OT - Recommending SNF placement Non-Compliance - Dilantin level 4.4 (10.-20); 20.9, total - Will optimize dose Resolved: 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 w/o any help - Supportive care - Continue PT/OT S/p Hypomagnesemia - Mg 1.6--> 1.8 --> 2.2 - 2/2 inadequate intake - Replete and monitor Chronic: Impaired Vision TABBY on CPAP Hypothyroidism Depression Post Seizure AVLENCIA Hx/o Medical Non-compliance Astrocytoma S/p Brain Resection 1995 Morbid Obesity with BMI 73.2 Plan: She is alert and doing ok Routine AM Labs Continue current plan High Fall Risk Aspiration/Seizure Precautions Continue PT/OT SW/CM for d/c planning - recommending SNF placement Code status:Full code; PCP: Vicky Salazar, Nurse practitioner LOS>96 hours with SZ activity.
[2018-03-01] MEDS: Acetaminophen 325 MG Tab PO PRN ×2 (03:20→19:53)
[2018-03-01] MEDS: Levothyroxine 75 MCG Tab PO SCH (06:48)
[2018-03-01] MEDS: Enoxaparin 40 MG/0.4 ML Syringe SUBCUT SCH ×3 (07:51→20:01)
[2018-03-01] MEDS: levETIRAcetam 500 MG Tab PO SCH ×3 (07:51→20:01)
[2018-03-01] MEDS: Furosemide 40 MG Tab PO SCH ×2 (07:51→09:18)
--- NOTE | 2018-03-01 14:28 | PCM.PN ---
- General Info Date of Service: 03/01/18 Admission Dx/Problem (Free Text): Seizure Disorder Subjective Update: In to see Ines today. She is lying in bed and eyes closed initially but she was arousable and was able to visit. She was resting before having PT/OT this afternoon. She has no medical complaints today. She has been sleeping well and feels that she is more alert today. Denies pain. No seizure since Tuesday. She states she had a "small seizure" this morning. Nursing reports that there was not an actual seizure and no medication was required; no concerns from nursing today. Dilantin level today was 18.1. Will restart on Tuesday pending labs. She will most likely be DCd to [facility] or [place] on 03/03/18. Functional Status: Reports: Pain Controlled, Tolerating Diet, Urinating - Review of Systems General: Reports: No Symptoms. Denies: Fever, Chills HEENT: Reports: No Symptoms Pulmonary: Reports: No Symptoms. Denies: Shortness of Breath, Cough Cardiovascular: Reports: No Symptoms. Denies: Chest Pain, Palpitations Gastrointestinal: Reports: No Symptoms. Denies: Abdominal Pain, Constipation, Diarrhea, Nausea, Vomiting Genitourinary: Reports: No Symptoms. Denies: Dysuria, Frequency Musculoskeletal: Reports: No Symptoms Skin: Reports: No Symptoms Neurological: Reports: Seizure (She felt like she had a "small one" this morning ), Weakness (SONI extremity) Psychiatric: Reports: No Symptoms - Patient Data Vitals - Most Recent: Last Vital Signs Temp 97.8 F 03/01/18 11:24 Pulse 91 03/01/18 11:24 Resp 18 03/01/18 11:24 BP 138/85 03/01/18 11:24 Pulse Ox 96 03/01/18 11:24 Weight - Most Recent: 334 lb 8 oz I&O - Last 24 Hours: Intake & Output 02/28/18 03/01/18 03/01/18 22:59 06:59 14:59 Intake Total 700 500 120 Output Total 300 125 900 Balance 400 375 -780 Lab Results Last 24 Hours: Laboratory Results - last 24 hr 03/01/18 Range/Units 06:41 Phenytoin 18.1 (10.0-20.0) ug/mL Med Orders - Current: Current Medications Acetaminophen (Tylenol) 650 mg PO Q4H PRN PRN Reason: Pain (Mild 1-3)/fever Last Admin: 03/01/18 03:20 Dose: 650 mg Hydrocodone Bitart/Acetaminophen ([place] 325-5 Mg) 1 tab PO Q4H PRN PRN Reason: Pain (moderate 4-6) Last Admin: 02/24/18 12:35 Dose: 1 tab Albuterol/Ipratropium (Duoneb 3.0-0.5 Mg/3 Ml) 3 ml NEB Q4H PRN PRN Reason: Shortness Of Breath/wheezing Bisacodyl (Dulcolax) 5 mg PO DAILY PRN PRN Reason: Constipation Last Admin: 02/27/18 08:27 Dose: 5 mg Docusate Sodium (Colace) 100 mg PO BID PRN PRN Reason: Constipation Enoxaparin Sodium (Lovenox) 40 mg SUBCUT Q12H [facility] Last Admin: 03/01/18 09:18 Dose: Not Given Furosemide (Lasix) 40 mg PO DAILY [facility] Last Admin: 03/01/18 09:18 Dose: Not Given Hydralazine HCl (Apresoline) 20 mg IVPUSH Q4H PRN PRN Reason: Hypertension Last Admin: 02/25/18 04:47 Dose: 20 mg Hydromorphone HCl (Dilaudid) 0.25 mg IVPUSH Q2H PRN PRN Reason: Pain (severe 7-10) Promethazine HCl 12.5 mg/ (Sodium Chloride) 50.5 mls @ 100 mls/hr IV Q6H PRN PRN Reason: Nausea/Vomiting Levetiracetam (Keppra) 1,500 mg PO BID [facility] Last Admin: 03/01/18 09:18 Dose: Not Given Levothyroxine Sodium (Levothyroxine) 75 mcg PO ACBREAKFAST [facility] Last Admin: 03/01/18 06:48 Dose: 75 mcg Lorazepam (Ativan) 2 mg IVPUSH Q4H PRN PRN Reason: Seizures Last Admin: 02/26/18 14:49 Dose: 2 mg Metoprolol Tartrate (Lopressor) 5 mg IVPUSH Q4H PRN PRN Reason: Tachycardia Ondansetron HCl (Zofran) 4 mg IV Q6H PRN PRN Reason: Nausea/Vomiting Phenytoin Sodium (Phenytoin) 100 mg PO BEDTIME JESSICA Polyethylene Glycol (Miralax) 17 gm PO DAILY PRN PRN Reason: Constipation Senna/Docusate Sodium (Senna Plus) 1 tab PO BID PRN PRN Reason: Constipation Sodium Chloride (Saline Flush) 10 ml FLUSH ASDIRECTED PRN PRN Reason: Keep Vein Open Last Admin: 02/20/18 17:48 Dose: 10 ml Temazepam (Restoril) 30 mg PO BEDTIME PRN PRN Reason: Insomnia Last Admin: 02/27/18 20:34 Dose: 30 mg Discontinued Medications Diazepam (Valium) 10 mg IV ONETIME STA Stop: 02/21/18 19:20 Last Admin: 02/21/18 20:16 Dose: Not Given Sodium Chloride (Normal Saline) 1,000 mls @ 999 mls/hr IV ONETIME ONE Stop: 02/20/18 18:24 Last Admin: 02/20/18 17:45 Dose: 999 mls/hr Levetiracetam 1,500 mg/ Sodium (Chloride) 115 mls @ 400 mls/hr IV ONETIME ONE Stop: 02/20/18 23:01 Last Admin: 02/20/18 23:14 Dose: 400 mls/hr Phenytoin Sodium 200 mg/ (Sodium Chloride) 104 mls @ 416 mls/hr IV ONETIME ONE Stop: 02/20/18 22:58 Last Admin: 02/20/18 23:39 Dose: 416 mls/hr Fosphenytoin Sodium 3,000 mg. (pe/ Sodium Chloride) 110 mls @ 150 mls/hr IV NOW ONE Stop: 02/21/18 19:39 Last Admin: 02/21/18 20:15 Dose: Not Given Levetiracetam 1,500 mg/ Sodium (Chloride) 115 mls @ 400 mls/hr IV ONETIME ONE Stop: 02/21/18 19:40 Last Admin: 02/21/18 20:10 Dose: 400 mls/hr Magnesium Sulfate 2 gm/ Premix 50 mls @ 25 mls/hr IV ONETIME ONE Stop: 02/22/18 10:59 Last Admin: 02/22/18 09:11 Dose: 25 mls/hr Phenytoin Sodium 1,530 mg/ (Sodium Chloride) 130.6 mls @ 130.6 mls/hr IV ONETIME ONE Stop: 02/23/18 07:34 Last Admin: 02/23/18 10:00 Dose: Not Given Phenytoin Sodium 1,500 mg/ (Sodium Chloride) 130 mls @ 130 mls/hr IV ONETIME ONE Stop: 02/23/18 09:59 Last Admin: 02/23/18 09:09 Dose: 130 mls/hr Phenytoin Sodium 1,500 mg/ (Sodium Chloride) 100 mls @ 100 mls/hr IV Q8H PRN PRN Reason: SEIZURES Phenytoin Sodium 1,500 mg/ (Sodium Chloride) 130 mls @ 130 mls/hr IV ONETIME ONE Stop: 02/24/18 11:14 Last Admin: 02/24/18 10:29 Dose: 130 mls/hr Magnesium Sulfate 2 gm/ Premix 50 mls @ 25 mls/hr IV ONETIME ONE Stop: 02/25/18 16:27 Last Admin: 02/25/18 16:36 Dose: 25 mls/hr Phenytoin Sodium 750 mg/ (Sodium Chloride) 65 mls @ 200 mls/hr IV ONETIME ONE Stop: 02/25/18 14:48 Last Admin: 02/25/18 16:14 Dose: 200 mls/hr Levetiracetam 2,000 mg/ Sodium (Chloride) 120 mls @ 400 mls/hr IV ONETIME ONE Stop: 02/26/18 15:09 Last Admin: 02/26/18 15:36 Dose: 400 mls/hr Ketorolac Tromethamine (Toradol) 15 mg IVPUSH ONETIME ONE Stop: 02/20/18 18:37 Last Admin: 02/20/18 18:44 Dose: 15 mg Lorazepam (Ativan) 1 mg IVPUSH ONETIME ONE Stop: 02/20/18 17:24 Last Admin: 02/20/18 17:47 Dose: 1 mg Lorazepam (Ativan) 1 mg IVPUSH ONETIME ONE Stop: 02/20/18 22:51 Last Admin: 02/20/18 23:14 Dose: 1 mg Lorazepam (Ativan) 1 mg PO Q8H PRN PRN Reason: Seizures Last Admin: 02/21/18 13:30 Dose: 1 mg Lorazepam (Ativan) 1 mg PO ASDIRECTED PRN PRN Reason: Seizures Lorazepam (Ativan) 1 - 3 mg IV Q4H PRN; Protocol PRN Reason: Withdrawal Symptoms Lorazepam (Ativan) 5 mg IVPUSH ONETIME ONE Stop: 02/21/18 19:09 Last Admin: 02/21/18 19:16 Dose: 5 mg Magnesium Oxide (Magnesium Oxide) 400 mg PO ONETIME ONE Stop: 02/21/18 23:46 Last Admin: 02/21/18 23:36 Dose: Not Given Magnesium Sulfate (Pharmacy To Dose - Magnesium Replacement) 1 dose .XX ASDIRECTED [facility] Phenytoin Sodium (Phenytoin) 200 mg PO BEDTIME [facility] Last Admin: 02/21/18 20:28 Dose: Not Given Phenytoin Sodium (Phenytoin) 100 mg PO DAILY [facility] Last Admin: 02/21/18 09:14 Dose: Not Given Phenytoin Sodium (Phenytoin) 300 mg PO BEDTIME [facility] Last Admin: 02/22/18 20:46 Dose: Not Given Phenytoin Sodium (Phenytoin) 300 mg PO BEDTIME [facility] Phenytoin Sodium (Phenytoin) 300 mg PO BID [facility] Last Admin: 02/27/18 08:27 Dose: 300 mg Potassium Chloride (Pharmacy To Dose - Potassium Replacement) 1 dose .XX ASDIRECTED [facility] Temazepam (Restoril) 15 mg PO BEDTIME PRN PRN Reason: Insomnia Last Admin: 02/25/18 20:23 Dose: 15 mg - Exam Quality Assessment: DVT Prophylaxis. No: Supplemental Oxygen General: Alert, Oriented, Cooperative, No Acute Distress HEENT: Pupils Equal, Pupils Reactive, EOMI, Mucous Membr. Moist/[place] Neck: Supple. No: Lymphadenopathy Lungs: Normal Respiratory Effort, Decreased Breath Sounds (secondary to body habitus ) Cardiovascular: Regular Rate, Regular Rhythm, No Murmurs GI/Abdominal Exam: Normal Bowel Sounds, Soft (obese ), Non-Tender, No Distention (Female) Exam: Deferred Back Exam: Normal Inspection, Full Range of Motion Extremities: Normal Inspection, Non-Tender, No Pedal Edema, Normal Capillary Refill, Limited Range of Motion (left upper extremity only) Peripheral Pulses: 1+: Posterior Tibial (L), Posterior Tibial (R), Dorsalis Pedis (L), Dorsalis Pedis (R) Skin: Warm, Dry, Intact Neurological: No New Focal Deficit, Cranial Nerves Intact (grossly ) Psy/Mental Status: Alert, Normal Affect, Normal Mood - Problem List & Annotations (1) Generalized weakness SNOMED Code(s): 15845652 Code(s): R53.1 - WEAKNESS Status: Acute Priority: Medium Current Visit : Yes (2) Noncompliance with medications SNOMED Code(s): 531618507 Code(s): Z91.14 - PATIENT'S OTHER NONCOMPLIANCE WITH MEDICATION REGIMEN Status: Acute Priority: High Current Visit: Yes (3) 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 SNOMED Code(s): 750872166300467 Code(s): G40.301 - GEN IDIOPATHIC EPILEPSY, NOT INTRACTABLE, W STAT EPI Status: Acute Priority: High Current Visit: Yes (4) Benji's paralysis SNOMED Code(s): 14459375 Code(s): G83.84 - BENJI'S PARALYSIS (POSTEPILEPTIC) Status: Resolved Priority: Medium Current Visit: Yes - Problem List Review Problem List Initiated/Reviewed/Updated: Yes - Plan Plan:: I/P: Acute: Status Epilepticus - 0 SZ for 72 hours; Last SZ activity Tuesday; received Ativan 4 mg IV - H/o Non compliance - EEG on 02/23/18--> Consistent w/ localization seizure disorder; has recurrent electroencephalographic subclinical seizures - Dilantin elevated--> restart Tuesday - Dilantin level 20.6-->18.1 (25.7 free) - Goal at least 15 (10-20) - Keppra 1500 mg po BID and phenytoin drip--> stopped by pharmacy --> restart Tuesday, 100mg at bedtime - Levetiracetam--> 24.4 - Adjust seizure medication as needed - PRN Ativan for Abortive Seizures Generalized Weakness - She requires assistance due to Morbid Obesity - PT/OT - Recommending SNF placement Non-Compliance - Dilantin level 4.4 (10-20); 20.9, total - Will optimize dose 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 w/o any help - Supportive care - Continue PT/OT Resolved S/p Hypomagnesemia - Mg 2--> 1.8 - 2/2 inadequate intake - Replete and monitor Chronic: Impaired Vision TABBY on CPAP Hypothyroidism Depression Post Seizure VALENCIA Hx/o Medical Non-compliance Astrocytoma S/p Brain Resection 1995 Morbid Obesity with BMI 73.2 Plan: Admitted to ICU She is alert and doing ok Routine AM Labs Continue current plan High Fall Risk Aspiration/Seizure Precautions Continue PT/OT SW/CM for d/c planning - recommending SNF placement Code status:Full code; PCP: Vicky Salazar, Nurse practitioner Most likely D/C Tuesday to [facility] or [place] pending clinical disposition LOS>96 hours with SZ activity.
[2018-03-02] MEDS: Acetaminophen 325 MG Tab PO PRN ×2 (00:36→20:13)
[2018-03-02] MEDS: Levothyroxine 75 MCG Tab PO SCH (06:14)
[2018-03-02] MEDS: Enoxaparin 40 MG/0.4 ML Syringe SUBCUT SCH ×2 (08:35→20:13)
[2018-03-02] MEDS: levETIRAcetam 500 MG Tab PO SCH ×2 (08:36→20:13)
[2018-03-02] MEDS: Furosemide 40 MG Tab PO SCH (08:36)
[2018-03-02] MEDS ORDERED: Magnesium Oxide 400 MG Tab PO ONE (09:23)
--- NOTE | 2018-03-02 13:13 | PCM.PN ---
- General Info Date of Service: 03/02/18 Admission Dx/Problem (Free Text): Seizure Disorder Subjective Update: In to see Ines today. She is lying in bed and eyes closed initially but she was arousable and was able to visit. She was resting before having PT/OT this afternoon. She has no medical complaints today. She has been sleeping well and feels that she is more alert today. Denies pain. No seizure since Tuesday. She states she had a "small seizure" this morning. Nursing reports that there was not an actual seizure and no medication was required; no concerns from nursing today. Dilantin level today was 18.1. Will restart on Tuesday pending labs. She will most likely be DCd to [facility] or [place] on 03/03/18. Functional Status: Reports: Pain Controlled (with pain medication; did report pain level 5/10 ), Tolerating Diet, Ambulating, Urinating - Review of Systems General: Reports: No Symptoms. Denies: Fever, Weakness HEENT: Reports: No Symptoms Pulmonary: Reports: No Symptoms. Denies: Shortness of Breath, Cough Cardiovascular: Reports: No Symptoms. Denies: Chest Pain, Palpitations, Edema Gastrointestinal: Reports: No Symptoms, Constipation (chronic ). Denies: Abdominal Pain, Decreased Appetite, Diarrhea Genitourinary: Reports: No Symptoms Musculoskeletal: Reports: No Symptoms Skin: Reports: No Symptoms Neurological: Reports: No Symptoms Psychiatric: Reports: No Symptoms - Patient Data Vitals - Most Recent: Last Vital Signs Temp 97.3 F 03/02/18 12:00 Pulse 88 03/02/18 12:00 Resp 16 03/02/18 12:00 BP 123/77 03/02/18 12:00 Pulse Ox 95 03/02/18 12:00 Weight - Most Recent: 235 lb I&O - Last 24 Hours: Intake & Output 03/01/18 03/02/18 03/02/18 22:59 06:59 14:59 Intake Total 760 200 Output Total 250 350 150 Balance 510 -150 -150 Lab Results Last 24 Hours: Laboratory Results - last 24 hr 03/02/18 03/02/18 Range/Units 07:15 07:15 WBC 5.98 (3.98-10.04) K/mm3 RBC 4.69 (3.98-5.22) M/mm3 Hgb 14.4 (11.2-15.7) gm/L Hct 43.4 (34.1-44.9) % MCV 92.5 (79.4-94.8) fl MCH 30.7 (25.6-32.2) pg MCHC 33.2 (32.2-35.5) g/dl RDW Std Deviation 44.5 (36.4-46.3) fL Plt Count 255 (182-369) K/mm3 MPV 8.4 L (9.4-12.3) fl Neut % (Auto) 42.3 (34.0-71.1) % Lymph % (Auto) 41.5 (19.3-51.7) % [place] % (Auto) 10.2 (4.7-12.5) % Eos % (Auto) 5.2 (0.7-5.8) Baso % (Auto) 0.3 (0.1-1.2) % Neut # (Auto) 2.53 (1.56-6.13) K/mm3 Lymph # (Auto) 2.48 (1.18-3.74) K/mm3 [place] # (Auto) 0.61 H (0.24-0.36) K/mm3 Eos # (Auto) 0.31 (0.04-0.36) K/mm3 Baso # (Auto) 0.02 (0.01-0.08) K/mm3 Sodium 136 (136-145) mEq/L Potassium 3.7 (3.5-5.1) mEq/L Chloride 103 (98-107) mEq/L Carbon Dioxide 25 (21-32) mEq/L Anion Gap 11.7 (5-15) BUN 15 (7-18) mg/dL Creatinine 0.8 (0.55-1.02) mg/dL Est Cr Clr Drug Dosing 65.06 mL/min Estimated GFR (MDRD) > 60 (>60) mL/min BUN/Creatinine Ratio 18.8 H (14-18) Glucose 128 H (74-106) mg/dL Calcium 8.9 (8.5-10.1) mg/dL Magnesium 1.7 L (1.8-2.4) mg/dl Med Orders - Current: Current Medications Acetaminophen (Tylenol) 650 mg PO Q4H PRN PRN Reason: Pain (Mild 1-3)/fever Last Admin: 03/02/18 00:36 Dose: 650 mg Hydrocodone Bitart/Acetaminophen ([place] 325-5 Mg) 1 tab PO Q4H PRN PRN Reason: Pain (moderate 4-6) Last Admin: 02/24/18 12:35 Dose: 1 tab Albuterol/Ipratropium (Duoneb 3.0-0.5 Mg/3 Ml) 3 ml NEB Q4H PRN PRN Reason: Shortness Of Breath/wheezing Bisacodyl (Dulcolax) 5 mg PO DAILY PRN PRN Reason: Constipation Last Admin: 02/27/18 08:27 Dose: 5 mg Docusate Sodium (Colace) 100 mg PO BID PRN PRN Reason: Constipation Enoxaparin Sodium (Lovenox) 40 mg SUBCUT Q12H [facility] Last Admin: 03/02/18 08:35 Dose: 40 mg Furosemide (Lasix) 40 mg PO DAILY [facility] Last Admin: 03/02/18 08:36 Dose: 40 mg Hydralazine HCl (Apresoline) 20 mg IVPUSH Q4H PRN PRN Reason: Hypertension Last Admin: 02/25/18 04:47 Dose: 20 mg Hydromorphone HCl (Dilaudid) 0.25 mg IVPUSH Q2H PRN PRN Reason: Pain (severe 7-10) Promethazine HCl 12.5 mg/ (Sodium Chloride) 50.5 mls @ 100 mls/hr IV Q6H PRN PRN Reason: Nausea/Vomiting Levetiracetam (Keppra) 1,500 mg PO BID [facility] Last Admin: 03/02/18 08:36 Dose: 1,500 mg Levothyroxine Sodium (Levothyroxine) 75 mcg PO ACBREAKFAST [facility] Last Admin: 03/02/18 06:14 Dose: 75 mcg Lorazepam (Ativan) 2 mg IVPUSH Q4H PRN PRN Reason: Seizures Last Admin: 02/26/18 14:49 Dose: 2 mg Metoprolol Tartrate (Lopressor) 5 mg IVPUSH Q4H PRN PRN Reason: Tachycardia Ondansetron HCl (Zofran) 4 mg IV Q6H PRN PRN Reason: Nausea/Vomiting Phenytoin Sodium (Phenytoin) 100 mg PO BEDTIME JESSICA Polyethylene Glycol (Miralax) 17 gm PO DAILY PRN PRN Reason: Constipation Senna/Docusate Sodium (Senna Plus) 1 tab PO BID PRN PRN Reason: Constipation Sodium Chloride (Saline Flush) 10 ml FLUSH ASDIRECTED PRN PRN Reason: Keep Vein Open Last Admin: 02/20/18 17:48 Dose: 10 ml Temazepam (Restoril) 30 mg PO BEDTIME PRN PRN Reason: Insomnia Last Admin: 02/27/18 20:34 Dose: 30 mg Discontinued Medications Diazepam (Valium) 10 mg IV ONETIME STA Stop: 02/21/18 19:20 Last Admin: 02/21/18 20:16 Dose: Not Given Sodium Chloride (Normal Saline) 1,000 mls @ 999 mls/hr IV ONETIME ONE Stop: 02/20/18 18:24 Last Admin: 02/20/18 17:45 Dose: 999 mls/hr Levetiracetam 1,500 mg/ Sodium (Chloride) 115 mls @ 400 mls/hr IV ONETIME ONE Stop: 02/20/18 23:01 Last Admin: 02/20/18 23:14 Dose: 400 mls/hr Phenytoin Sodium 200 mg/ (Sodium Chloride) 104 mls @ 416 mls/hr IV ONETIME ONE Stop: 02/20/18 22:58 Last Admin: 02/20/18 23:39 Dose: 416 mls/hr Fosphenytoin Sodium 3,000 mg. (pe/ Sodium Chloride) 110 mls @ 150 mls/hr IV NOW ONE Stop: 02/21/18 19:39 Last Admin: 02/21/18 20:15 Dose: Not Given Levetiracetam 1,500 mg/ Sodium (Chloride) 115 mls @ 400 mls/hr IV ONETIME ONE Stop: 02/21/18 19:40 Last Admin: 02/21/18 20:10 Dose: 400 mls/hr Magnesium Sulfate 2 gm/ Premix 50 mls @ 25 mls/hr IV ONETIME ONE Stop: 02/22/18 10:59 Last Admin: 02/22/18 09:11 Dose: 25 mls/hr Phenytoin Sodium 1,530 mg/ (Sodium Chloride) 130.6 mls @ 130.6 mls/hr IV ONETIME ONE Stop: 02/23/18 07:34 Last Admin: 02/23/18 10:00 Dose: Not Given Phenytoin Sodium 1,500 mg/ (Sodium Chloride) 130 mls @ 130 mls/hr IV ONETIME ONE Stop: 02/23/18 09:59 Last Admin: 02/23/18 09:09 Dose: 130 mls/hr Phenytoin Sodium 1,500 mg/ (Sodium Chloride) 100 mls @ 100 mls/hr IV Q8H PRN PRN Reason: SEIZURES Phenytoin Sodium 1,500 mg/ (Sodium Chloride) 130 mls @ 130 mls/hr IV ONETIME ONE Stop: 02/24/18 11:14 Last Admin: 02/24/18 10:29 Dose: 130 mls/hr Magnesium Sulfate 2 gm/ Premix 50 mls @ 25 mls/hr IV ONETIME ONE Stop: 02/25/18 16:27 Last Admin: 02/25/18 16:36 Dose: 25 mls/hr Phenytoin Sodium 750 mg/ (Sodium Chloride) 65 mls @ 200 mls/hr IV ONETIME ONE Stop: 02/25/18 14:48 Last Admin: 02/25/18 16:14 Dose: 200 mls/hr Levetiracetam 2,000 mg/ Sodium (Chloride) 120 mls @ 400 mls/hr IV ONETIME ONE Stop: 02/26/18 15:09 Last Admin: 02/26/18 15:36 Dose: 400 mls/hr Ketorolac Tromethamine (Toradol) 15 mg IVPUSH ONETIME ONE Stop: 02/20/18 18:37 Last Admin: 02/20/18 18:44 Dose: 15 mg Lorazepam (Ativan) 1 mg IVPUSH ONETIME ONE Stop: 02/20/18 17:24 Last Admin: 02/20/18 17:47 Dose: 1 mg Lorazepam (Ativan) 1 mg IVPUSH ONETIME ONE Stop: 02/20/18 22:51 Last Admin: 02/20/18 23:14 Dose: 1 mg Lorazepam (Ativan) 1 mg PO Q8H PRN PRN Reason: Seizures Last Admin: 02/21/18 13:30 Dose: 1 mg Lorazepam (Ativan) 1 mg PO ASDIRECTED PRN PRN Reason: Seizures Lorazepam (Ativan) 1 - 3 mg IV Q4H PRN; Protocol PRN Reason: Withdrawal Symptoms Lorazepam (Ativan) 5 mg IVPUSH ONETIME ONE Stop: 02/21/18 19:09 Last Admin: 02/21/18 19:16 Dose: 5 mg Magnesium Oxide (Magnesium Oxide) 400 mg PO ONETIME ONE Stop: 02/21/18 23:46 Last Admin: 02/21/18 23:36 Dose: Not Given Magnesium Oxide (Magnesium Oxide) 400 mg PO ONETIME ONE Stop: 03/02/18 09:24 Last Admin: 03/02/18 10:14 Dose: 400 mg Magnesium Sulfate (Pharmacy To Dose - Magnesium Replacement) 1 dose .XX ASDIRECTED [facility] Phenytoin Sodium (Phenytoin) 200 mg PO BEDTIME [facility] Last Admin: 02/21/18 20:28 Dose: Not Given Phenytoin Sodium (Phenytoin) 100 mg PO DAILY [facility] Last Admin: 02/21/18 09:14 Dose: Not Given Phenytoin Sodium (Phenytoin) 300 mg PO BEDTIME [facility] Last Admin: 02/22/18 20:46 Dose: Not Given Phenytoin Sodium (Phenytoin) 300 mg PO BEDTIME [facility] Phenytoin Sodium (Phenytoin) 300 mg PO BID [facility] Last Admin: 02/27/18 08:27 Dose: 300 mg Potassium Chloride (Pharmacy To Dose - Potassium Replacement) 1 dose .XX ASDIRECTED [facility] Temazepam (Restoril) 15 mg PO BEDTIME PRN PRN Reason: Insomnia Last Admin: 02/25/18 20:23 Dose: 15 mg - Plan Plan:: I/P: Acute: Status Epilepticus - 0 SZ for 72 hours; Last SZ activity Tuesday; received Ativan 4 mg IV - H/o Non compliance - EEG on 02/23/18--> Consistent w/ localization seizure disorder; has recurrent electroencephalographic subclinical seizures - Dilantin elevated--> restart Tuesday - Dilantin level 20.6-->18.1 (25.7 free) - Goal at least 15 (10-20) - Keppra 1500 mg po BID and phenytoin drip--> stopped by pharmacy --> restart Tuesday, 100mg at bedtime - Levetiracetam--> 24.4 - Adjust seizure medication as needed - PRN Ativan for Abortive Seizures Generalized Weakness - She requires assistance due to Morbid Obesity - PT/OT - Recommending SNF placement Non-Compliance - Dilantin level 4.4 (10-20); 20.9, total - Will optimize dose 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 w/o any help - Supportive care - Continue PT/OT Resolved S/p Hypomagnesemia - Mg 2--> 1.8 - 2/2 inadequate intake - Replete and monitor Chronic: Impaired Vision TABBY on CPAP Hypothyroidism Depression Post Seizure VALENCIA Hx/o Medical Non-compliance Astrocytoma S/p Brain Resection 1995 Morbid Obesity with BMI 73.2 Plan: Admitted to ICU She is alert and doing ok Routine AM Labs Continue current plan High Fall Risk Aspiration/Seizure Precautions Continue PT/OT SW/CM for d/c planning - recommending SNF placement Code status:Full code; PCP: Vicky Salazar, Nurse practitioner Most likely D/C Tuesday to [facility] or [facility] pending clinical disposition LOS>96 hours with SZ activity.
--- NOTE | 2018-03-02 13:26 | PCM.PN ---
- General Info Date of Service: 03/02/18 Admission Dx/Problem (Free Text): Seizure Disorder Subjective Update: In to see Ines today. She is sitting in a chair. She has no medical complaints today. She did not sleep well last night but feels more alert today. Last BM was 2 days ago. Appetite is returning. Denies pain. No seizure since Tuesday. No concerns from nursing today. She will most likely be DCd to [facility] or [facility] on 03/03/18. Functional Status: Reports: Pain Controlled, Tolerating Diet, Ambulating, Urinating - Review of Systems General: Reports: No Symptoms. Denies: Fever, Chills HEENT: Reports: No Symptoms Pulmonary: Reports: No Symptoms. Denies: Shortness of Breath Cardiovascular: Reports: No Symptoms Gastrointestinal: Reports: No Symptoms Genitourinary: Reports: No Symptoms Musculoskeletal: Reports: No Symptoms Skin: Reports: No Symptoms Neurological: Reports: No Symptoms. Denies: Confusion, Numbness, Weakness Psychiatric: Reports: No Symptoms. Denies: Confusion - Patient Data Vitals - Most Recent: Last Vital Signs Temp 97.3 F 03/02/18 12:00 Pulse 88 03/02/18 12:00 Resp 16 03/02/18 12:00 BP 123/77 03/02/18 12:00 Pulse Ox 95 03/02/18 12:00 Weight - Most Recent: 235 lb I&O - Last 24 Hours: Intake & Output 03/01/18 03/02/18 03/02/18 22:59 06:59 14:59 Intake Total 760 200 Output Total 250 350 150 Balance 510 -150 -150 Lab Results Last 24 Hours: Laboratory Results - last 24 hr 03/02/18 03/02/18 Range/Units 07:15 07:15 WBC 5.98 (3.98-10.04) K/mm3 RBC 4.69 (3.98-5.22) M/mm3 Hgb 14.4 (11.2-15.7) gm/L Hct 43.4 (34.1-44.9) % MCV 92.5 (79.4-94.8) fl MCH 30.7 (25.6-32.2) pg MCHC 33.2 (32.2-35.5) g/dl RDW Std Deviation 44.5 (36.4-46.3) fL Plt Count 255 (182-369) K/mm3 MPV 8.4 L (9.4-12.3) fl Neut % (Auto) 42.3 (34.0-71.1) % Lymph % (Auto) 41.5 (19.3-51.7) % [place] % (Auto) 10.2 (4.7-12.5) % Eos % (Auto) 5.2 (0.7-5.8) Baso % (Auto) 0.3 (0.1-1.2) % Neut # (Auto) 2.53 (1.56-6.13) K/mm3 Lymph # (Auto) 2.48 (1.18-3.74) K/mm3 [place] # (Auto) 0.61 H (0.24-0.36) K/mm3 Eos # (Auto) 0.31 (0.04-0.36) K/mm3 Baso # (Auto) 0.02 (0.01-0.08) K/mm3 Sodium 136 (136-145) mEq/L Potassium 3.7 (3.5-5.1) mEq/L Chloride 103 (98-107) mEq/L Carbon Dioxide 25 (21-32) mEq/L Anion Gap 11.7 (5-15) BUN 15 (7-18) mg/dL Creatinine 0.8 (0.55-1.02) mg/dL Est Cr Clr Drug Dosing 65.06 mL/min Estimated GFR (MDRD) > 60 (>60) mL/min BUN/Creatinine Ratio 18.8 H (14-18) Glucose 128 H (74-106) mg/dL Calcium 8.9 (8.5-10.1) mg/dL Magnesium 1.7 L (1.8-2.4) mg/dl Med Orders - Current: Current Medications Acetaminophen (Tylenol) 650 mg PO Q4H PRN PRN Reason: Pain (Mild 1-3)/fever Last Admin: 03/02/18 00:36 Dose: 650 mg Hydrocodone Bitart/Acetaminophen ([place] 325-5 Mg) 1 tab PO Q4H PRN PRN Reason: Pain (moderate 4-6) Last Admin: 02/24/18 12:35 Dose: 1 tab Albuterol/Ipratropium (Duoneb 3.0-0.5 Mg/3 Ml) 3 ml NEB Q4H PRN PRN Reason: Shortness Of Breath/wheezing Bisacodyl (Dulcolax) 5 mg PO DAILY PRN PRN Reason: Constipation Last Admin: 02/27/18 08:27 Dose: 5 mg Docusate Sodium (Colace) 100 mg PO BID PRN PRN Reason: Constipation Enoxaparin Sodium (Lovenox) 40 mg SUBCUT Q12H [facility] Last Admin: 03/02/18 08:35 Dose: 40 mg Furosemide (Lasix) 40 mg PO DAILY [facility] Last Admin: 03/02/18 08:36 Dose: 40 mg Hydralazine HCl (Apresoline) 20 mg IVPUSH Q4H PRN PRN Reason: Hypertension Last Admin: 02/25/18 04:47 Dose: 20 mg Hydromorphone HCl (Dilaudid) 0.25 mg IVPUSH Q2H PRN PRN Reason: Pain (severe 7-10) Promethazine HCl 12.5 mg/ (Sodium Chloride) 50.5 mls @ 100 mls/hr IV Q6H PRN PRN Reason: Nausea/Vomiting Levetiracetam (Keppra) 1,500 mg PO BID [facility] Last Admin: 03/02/18 08:36 Dose: 1,500 mg Levothyroxine Sodium (Levothyroxine) 75 mcg PO ACBREAKFAST [facility] Last Admin: 03/02/18 06:14 Dose: 75 mcg Lorazepam (Ativan) 2 mg IVPUSH Q4H PRN PRN Reason: Seizures Last Admin: 02/26/18 14:49 Dose: 2 mg Metoprolol Tartrate (Lopressor) 5 mg IVPUSH Q4H PRN PRN Reason: Tachycardia Ondansetron HCl (Zofran) 4 mg IV Q6H PRN PRN Reason: Nausea/Vomiting Phenytoin Sodium (Phenytoin) 100 mg PO BEDTIME [facility] Polyethylene Glycol (Miralax) 17 gm PO DAILY PRN PRN Reason: Constipation Senna/Docusate Sodium (Senna Plus) 1 tab PO BID PRN PRN Reason: Constipation Sodium Chloride (Saline Flush) 10 ml FLUSH ASDIRECTED PRN PRN Reason: Keep Vein Open Last Admin: 02/20/18 17:48 Dose: 10 ml Temazepam (Restoril) 30 mg PO BEDTIME PRN PRN Reason: Insomnia Last Admin: 02/27/18 20:34 Dose: 30 mg Discontinued Medications Diazepam (Valium) 10 mg IV ONETIME STA Stop: 02/21/18 19:20 Last Admin: 02/21/18 20:16 Dose: Not Given Sodium Chloride (Normal Saline) 1,000 mls @ 999 mls/hr IV ONETIME ONE Stop: 02/20/18 18:24 Last Admin: 02/20/18 17:45 Dose: 999 mls/hr Levetiracetam 1,500 mg/ Sodium (Chloride) 115 mls @ 400 mls/hr IV ONETIME ONE Stop: 02/20/18 23:01 Last Admin: 02/20/18 23:14 Dose: 400 mls/hr Phenytoin Sodium 200 mg/ (Sodium Chloride) 104 mls @ 416 mls/hr IV ONETIME ONE Stop: 02/20/18 22:58 Last Admin: 02/20/18 23:39 Dose: 416 mls/hr Fosphenytoin Sodium 3,000 mg. (pe/ Sodium Chloride) 110 mls @ 150 mls/hr IV NOW ONE Stop: 02/21/18 19:39 Last Admin: 02/21/18 20:15 Dose: Not Given Levetiracetam 1,500 mg/ Sodium (Chloride) 115 mls @ 400 mls/hr IV ONETIME ONE Stop: 02/21/18 19:40 Last Admin: 02/21/18 20:10 Dose: 400 mls/hr Magnesium Sulfate 2 gm/ Premix 50 mls @ 25 mls/hr IV ONETIME ONE Stop: 02/22/18 10:59 Last Admin: 02/22/18 09:11 Dose: 25 mls/hr Phenytoin Sodium 1,530 mg/ (Sodium Chloride) 130.6 mls @ 130.6 mls/hr IV ONETIME ONE Stop: 02/23/18 07:34 Last Admin: 02/23/18 10:00 Dose: Not Given Phenytoin Sodium 1,500 mg/ (Sodium Chloride) 130 mls @ 130 mls/hr IV ONETIME ONE Stop: 02/23/18 09:59 Last Admin: 02/23/18 09:09 Dose: 130 mls/hr Phenytoin Sodium 1,500 mg/ (Sodium Chloride) 100 mls @ 100 mls/hr IV Q8H PRN PRN Reason: SEIZURES Phenytoin Sodium 1,500 mg/ (Sodium Chloride) 130 mls @ 130 mls/hr IV ONETIME ONE Stop: 02/24/18 11:14 Last Admin: 02/24/18 10:29 Dose: 130 mls/hr Magnesium Sulfate 2 gm/ Premix 50 mls @ 25 mls/hr IV ONETIME ONE Stop: 02/25/18 16:27 Last Admin: 02/25/18 16:36 Dose: 25 mls/hr Phenytoin Sodium 750 mg/ (Sodium Chloride) 65 mls @ 200 mls/hr IV ONETIME ONE Stop: 02/25/18 14:48 Last Admin: 02/25/18 16:14 Dose: 200 mls/hr Levetiracetam 2,000 mg/ Sodium (Chloride) 120 mls @ 400 mls/hr IV ONETIME ONE Stop: 02/26/18 15:09 Last Admin: 02/26/18 15:36 Dose: 400 mls/hr Ketorolac Tromethamine (Toradol) 15 mg IVPUSH ONETIME ONE Stop: 02/20/18 18:37 Last Admin: 02/20/18 18:44 Dose: 15 mg Lorazepam (Ativan) 1 mg IVPUSH ONETIME ONE Stop: 02/20/18 17:24 Last Admin: 02/20/18 17:47 Dose: 1 mg Lorazepam (Ativan) 1 mg IVPUSH ONETIME ONE Stop: 02/20/18 22:51 Last Admin: 02/20/18 23:14 Dose: 1 mg Lorazepam (Ativan) 1 mg PO Q8H PRN PRN Reason: Seizures Last Admin: 02/21/18 13:30 Dose: 1 mg Lorazepam (Ativan) 1 mg PO ASDIRECTED PRN PRN Reason: Seizures Lorazepam (Ativan) 1 - 3 mg IV Q4H PRN; Protocol PRN Reason: Withdrawal Symptoms Lorazepam (Ativan) 5 mg IVPUSH ONETIME ONE Stop: 02/21/18 19:09 Last Admin: 02/21/18 19:16 Dose: 5 mg Magnesium Oxide (Magnesium Oxide) 400 mg PO ONETIME ONE Stop: 02/21/18 23:46 Last Admin: 02/21/18 23:36 Dose: Not Given Magnesium Oxide (Magnesium Oxide) 400 mg PO ONETIME ONE Stop: 03/02/18 09:24 Last Admin: 03/02/18 10:14 Dose: 400 mg Magnesium Sulfate (Pharmacy To Dose - Magnesium Replacement) 1 dose .XX ASDIRECTED [facility] Phenytoin Sodium (Phenytoin) 200 mg PO BEDTIME [facility] Last Admin: 02/21/18 20:28 Dose: Not Given Phenytoin Sodium (Phenytoin) 100 mg PO DAILY [facility] Last Admin: 02/21/18 09:14 Dose: Not Given Phenytoin Sodium (Phenytoin) 300 mg PO BEDTIME [facility] Last Admin: 02/22/18 20:46 Dose: Not Given Phenytoin Sodium (Phenytoin) 300 mg PO BEDTIME JESSICA Phenytoin Sodium (Phenytoin) 300 mg PO BID [facility] Last Admin: 02/27/18 08:27 Dose: 300 mg Potassium Chloride (Pharmacy To Dose - Potassium Replacement) 1 dose .XX ASDIRECTED [facility] Temazepam (Restoril) 15 mg PO BEDTIME PRN PRN Reason: Insomnia Last Admin: 02/25/18 20:23 Dose: 15 mg - Exam Quality Assessment: DVT Prophylaxis. No: Supplemental Oxygen General: Alert, Oriented, Cooperative, No Acute Distress HEENT: Pupils Equal, Pupils Reactive, EOMI, Mucous Membr. Moist/[place] Neck: Supple Lungs: Normal Respiratory Effort, Decreased Breath Sounds (secondary to body habitus) Cardiovascular: Regular Rate, Regular Rhythm, No Murmurs GI/Abdominal Exam: Normal Bowel Sounds, Soft, Non-Tender, No Organomegaly, No Distention, No Abnormal Bruit, No Mass, Pelvis Stable (Female) Exam: Deferred Back Exam: Normal Inspection, Full Range of Motion Extremities: Normal Inspection, Normal Range of Motion, Non-Tender, No Pedal Edema, Normal Capillary Refill Peripheral Pulses: 1+: Posterior Tibial (L), Posterior Tibial (R), Dorsalis Pedis (L), Dorsalis Pedis (R) Skin: Warm, Dry, Intact Neurological: No New Focal Deficit, Cranial Nerves Intact (grossly) Psy/Mental Status: Alert, Normal Affect, Normal Mood - Problem List & Annotations (1) Generalized weakness SNOMED Code(s): 87968616 Code(s): R53.1 - WEAKNESS Status: Acute Priority: Medium Current Visit : Yes (2) Noncompliance with medications SNOMED Code(s): 873233562 Code(s): Z91.14 - PATIENT'S OTHER NONCOMPLIANCE WITH MEDICATION REGIMEN Status: Acute Priority: High Current Visit: Yes (3) 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 SNOMED Code(s): 739961013064368 Code(s): G40.301 - GEN IDIOPATHIC EPILEPSY, NOT INTRACTABLE, W STAT EPI Status: Acute Priority: High Current Visit: Yes (4) Benji's paralysis SNOMED Code(s): 73160867 Code(s): G83.84 - BENJI'S PARALYSIS (POSTEPILEPTIC) Status: Resolved Priority: Medium Current Visit: Yes - Problem List Review Problem List Initiated/Reviewed/Updated: Yes - My Orders Last 24 Hours: My Active Orders 03/03/18 05:11 BASIC METABOLIC PANEL,BMP [CHEM] AM CBC WITH AUTO DIFF [HEME] AM DILANTIN,PHENYTOIN [CHEM] AM MAGNESIUM [CHEM] AM 03/04/18 05:11 BASIC METABOLIC PANEL,BMP [CHEM] AM CBC WITH AUTO DIFF [HEME] AM MAGNESIUM [CHEM] AM 03/05/18 05:11 BASIC METABOLIC PANEL,BMP [CHEM] AM CBC WITH AUTO DIFF [HEME] AM MAGNESIUM [CHEM] AM - Plan Plan:: I/P: Acute: Status Epilepticus - 0 SZ for 72 hours; Last SZ activity Tuesday; received Ativan 4 mg IV - H/o Non compliance - EEG on 02/23/18--> Consistent w/ localization seizure disorder; has recurrent electroencephalographic subclinical seizures - Dilantin elevated--> restart Tuesday03/03/18 - Dilantin level 20.6-->18.1 (25.7 free) - Goal at least 15 (10-20) - Repeat lab on Tuesday03/03/18 - Keppra 1500 mg po BID and phenytoin drip--> stopped by pharmacy --> restart Tuesday, 100mg at bedtime - Levetiracetam--> 24.4 - Adjust seizure medication as needed - PRN Ativan for Abortive Seizures Generalized Weakness - She requires assistance due to Morbid Obesity - PT/OT - Recommending SNF placement Non-Compliance - Dilantin level 4.4 (10-20); 20.9, total - Will optimize dose 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 w/o any help - Supportive care - Continue PT/OT Resolved S/p Hypomagnesemia - Mg 1.8--> 1.7 - 2/2 inadequate intake - Replete and monitor Chronic: Impaired Vision TABBY on CPAP Hypothyroidism Depression Post Seizure VALENCIA Hx/o Medical Non-compliance Astrocytoma S/p Brain Resection 1995 Morbid Obesity with BMI 73.2 Plan: Admitted to ICU She is alert and doing ok Routine AM Labs Continue current plan High Fall Risk Aspiration/Seizure Precautions Continue PT/OT SW/CM for d/c planning - recommending SNF placement Code status:Full code; PCP: Vicky Salazar, Nurse practitioner Most likely D/C Tuesday to [facility] or [facility] pending clinical disposition LOS>96 hours with SZ activity.
[2018-03-03] MEDS: Levothyroxine 75 MCG Tab PO SCH (05:45)
[2018-03-03 07:44] VITALS: BP 122/72
[2018-03-03] MEDS: Furosemide 40 MG Tab PO SCH (08:14)
[2018-03-03] MEDS: Enoxaparin 40 MG/0.4 ML Syringe SUBCUT SCH (08:14)
[2018-03-03] MEDS: levETIRAcetam 500 MG Tab PO SCH (08:14)
[2018-03-03] MEDS: Acetaminophen 325 MG Tab PO PRN (10:18)
--- NOTE | 2018-03-03 12:06 | PCM.DCSUM1 ---
Discharge Summary - Hospital Course HPI Initial Comments: 52-year-old female arrives via [facility] ambulance service after having a seizure today. Patient reportedly had a grand mal seizure at home. Estimates a list of last less than a minute. She reports a slow normal seizure for her. 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 She is currently on Keppra and Dilantin, states she's been taking this as prescribed. She reports current symptoms of headache. Denies any fevers, chills, nausea, vomiting or diarrhea. Patient reports paralysis of her left arm. 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 She is left-handed. She states that she cannot take care of herself at home due to the paralysis. Patient was seen in the ER yesterday following a seiz Her workup was from unremarkable. Dilantin level is low at 2.1. She was discharged home, instructed to follow-up with her primary care provider. She sinus followed up with her primary care provider. Patient does not currently seen a neurologist. Patient reports that she was nonpermanent by herself. Sounds as if she has home health come and help her on occasion Family is currently in [place].. 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 SNOMED Code(s): 591028069463404 ICD Code: G40.301 - GEN IDIOPATHIC EPILEPSY, NOT INTRACTABLE, W STAT EPI Status: Acute Priority: High (4) Benji's paralysis SNOMED Code(s): 34261434 ICD Code: G83.84 - BENJI'S PARALYSIS (POSTEPILEPTIC) Status: Resolved Priority: Medium - Patient Summary/Data Operative Procedure(s) Performed: none Complications: none Consults: Consultations 02/20/18 23:41 Consult to Case Management [CONS] Routine Consult to [employer] [CONS] Routine Consult to Supervisor [employer] [CONS] Routine OT Evaluation and Treatment [CONS] Routine PT Evaluation and Treatment [CONS] Routine 02/22/18 07:52 Consult to Speech Language Pathology [SCRAP BALLER Evaluation and Treatment] [CONS] Routine 02/25/18 10:16 Consult to Physician [CONS] Routine Labs Pending at D/C: none Recommended Follow-up Testing/Procedures: Follow up with PCP in 7-10 days Planned Operative Procedure(s) after DC: none Hospital Course: I/P: Acute: Status Epilepticus - 0 SZ for 72 hours; Last SZ activity Tuesday; received Ativan 4 mg IV - H/o Non compliance - EEG on 02/23/18--> Consistent w/ localization seizure disorder; has recurrent electroencephalographic subclinical seizures - Dilantin elevated--> restart Tuesday03/04/18 - Dilantin level 20.6-->18.1 (25.7 free)--> 14.1 - Goal at least 15 (10-20) - Repeat lab on Tuesday03/03/18 - Keppra 1500 mg po BID and phenytoin drip--> stopped by pharmacy --> restart Tuesday, 100mg at bedtime - Levetiracetam--> 24.4 - Adjust seizure medication as needed - PRN Ativan for Abortive Seizures Generalized Weakness - She requires assistance due to Morbid Obesity - PT/OT - Recommending SNF placement Non-Compliance - Dilantin level 4.4 (10-20); 20.9, total - Will optimize dose 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 w/o any help - Supportive care - Continue PT/OT Resolved S/p Hypomagnesemia - Mg 1.8--> 1.7 - 2/2 inadequate intake - Replete and monitor Chronic: Impaired Vision TABBY on CPAP Hypothyroidism Depression Post Seizure VALENCIA Hx/o Medical Non-compliance Astrocytoma S/p Brain Resection 1995 Morbid Obesity with BMI 73.2 Plan: Admitted to ICU She is alert and doing ok Routine AM Labs Continue current plan High Fall Risk Aspiration/Seizure Precautions Continue PT/OT SW/CM for d/c planning - recommending SNF placement Code status: Full code; PCP: Vicky Salazar, Nurse practitioner D/C today to [facility] LOS>96 hours with SZ activity. Ines has recovered quite well. She had multiple tests done. So far all have been negative except for EEG was consistent w/ localization seizure disorder; has recurrent electroencephalographic subclinical seizures. She has been seizure -free now for over 72 hours. She should follow-up with her primary care provider in 7-10 days. Her DILANTIN level was elevated here and is currently being held - RESTART DILANTIN ON TUESDAY. PCP SHOULD RECHECK DILANTIN LEVEL ( TOTAL AND FREE) IN 1 WEEK. She was not discharged to [facility] on any new medications, but I did re-write a prescription for Ativan x10 days until her follow up appointment with her PCP where she can renew her prescription. She will be discharged to [facility] assisted today. - Patient Instructions Diet: Regular Diet as Tolerated Activity: As Tolerated Driving: Do Not Drive Showering/Bathing: May Shower Notify Provider of: Fever, Increased Pain, Swelling and Redness, Drainage, Nausea and/or Vomiting - Discharge Plan Home Medications: Home Meds Furosemide [Lasix] 40 mg PO DAILY 05/07/16 [History] Levothyroxine 75 mcg PO ACBREAKFAST 05/07/16 [History] Phenytoin Sodium Extended [Dilantin] 200 mg PO BEDTIME 02/18/18 [History] levETIRAcetam [Keppra] 1,500 mg PO BID 02/18/18 [History] LORazepam 1 mg PO BID PRN 02/21/18 [History] Patient Handouts: Seizure, Adult, [id number] Referrals: Vicky Salazar NP [Primary Care Provider] - - Discharge Summary/Plan Comment DC Time >30 min.: Yes (40) - General Info Date of Service: 03/03/18 Admission Dx/Problem (Free Text: Seizure Disorder Functional Status: Reports: Pain Controlled, Tolerating Diet, Ambulating, Urinating - Review of Systems General: Reports: No Symptoms. Denies: Fever, Chills HEENT: Reports: No Symptoms Pulmonary: Reports: No Symptoms Cardiovascular: Reports: No Symptoms Gastrointestinal: Reports: No Symptoms Genitourinary: Reports: No Symptoms. Denies: Dysuria, Frequency, Burning, Pain , Urgency Musculoskeletal: Reports: No Symptoms Skin: Reports: No Symptoms Neurological: Reports: No Symptoms. Denies: Confusion, Dizziness, Seizure, Syncope Psychiatric: Reports: No Symptoms. Denies: Confusion, Depression - Patient Data Vitals - Most Recent: Last Vital Signs Temp 97.8 F 03/03/18 07:42 Pulse 79 03/03/18 03:50 Resp 21 H 03/03/18 08:00 BP 122/72 03/03/18 07:42 Pulse Ox 95 03/03/18 07:42 Weight - Most Recent: 333 lb 12.8 oz I&O - Last 24 hours: Intake & Output 03/02/18 03/03/18 03/03/18 22:59 06:59 14:59 Intake Total 850 600 520 Output Total 650 250 350 Balance 200 350 170 Lab Results - Last 24 hrs: Laboratory Results - last 24 hr 03/03/18 03/03/18 Range/Units 05:45 05:45 WBC 6.95 (3.98-10.04) K/mm3 RBC 4.50 (3.98-5.22) M/mm3 Hgb 14.3 (11.2-15.7) gm/L Hct 42.4 (34.1-44.9) % MCV 94.2 (79.4-94.8) fl MCH 31.8 (25.6-32.2) pg MCHC 33.7 (32.2-35.5) g/dl RDW Std Deviation 45.3 (36.4-46.3) fL Plt Count 264 (182-369) K/mm3 MPV 8.7 L (9.4-12.3) fl Neut % (Auto) 41.9 (34.0-71.1) % Lymph % (Auto) 41.7 (19.3-51.7) % Toombs % (Auto) 11.9 (4.7-12.5) % Eos % (Auto) 3.2 (0.7-5.8) Baso % (Auto) 0.6 (0.1-1.2) % Neut # (Auto) 2.91 (1.56-6.13) K/mm3 Lymph # (Auto) 2.90 (1.18-3.74) K/mm3 [place]ombs # (Auto) 0.83 H (0.24-0.36) K/mm3 Eos # (Auto) 0.22 (0.04-0.36) K/mm3 Baso # (Auto) 0.04 (0.01-0.08) K/mm3 Sodium 138 (136-145) mEq/L Potassium 3.7 (3.5-5.1) mEq/L Chloride 104 (98-107) mEq/L Carbon Dioxide 26 (21-32) mEq/L Anion Gap 11.7 (5-15) BUN 17 (7-18) mg/dL Creatinine 0.9 (0.55-1.02) mg/dL Est Cr Clr Drug Dosing 57.83 mL/min Estimated GFR (MDRD) > 60 (>60) mL/min BUN/Creatinine Ratio 18.9 H (14-18) Glucose 118 H (74-106) mg/dL Calcium 8.9 (8.5-10.1) mg/dL Magnesium 1.9 (1.8-2.4) mg/dl Phenytoin 14.1 (10.0-20.0) ug/mL Med Orders - Current: Current Medications Discontinued Medications Acetaminophen (Tylenol) 650 mg PO Q4H PRN PRN Reason: Pain (Mild 1-3)/fever Last Admin: 03/03/18 10:18 Dose: 650 mg Hydrocodone Bitart/Acetaminophen (Zirconia 325-5 Mg) 1 tab PO Q4H PRN PRN Reason: Pain (moderate 4-6) Last Admin: 02/24/18 12:35 Dose: 1 tab Albuterol/Ipratropium (Duoneb 3.0-0.5 Mg/3 Ml) 3 ml NEB Q4H PRN PRN Reason: Shortness Of Breath/wheezing Bisacodyl (Dulcolax) 5 mg PO DAILY PRN PRN Reason: Constipation Last Admin: 02/27/18 08:27 Dose: 5 mg Diazepam (Valium) 10 mg IV ONETIME STA Stop: 02/21/18 19:20 Last Admin: 02/21/18 20:16 Dose: Not Given Docusate Sodium (Colace) 100 mg PO BID PRN PRN Reason: Constipation Enoxaparin Sodium (Lovenox) 40 mg SUBCUT Q12H [facility] Last Admin: 03/03/18 08:14 Dose: 40 mg Furosemide (Lasix) 40 mg PO DAILY JESSICA Last Admin: 03/03/18 08:14 Dose: 40 mg Hydralazine HCl (Apresoline) 20 mg IVPUSH Q4H PRN PRN Reason: Hypertension Last Admin: 02/25/18 04:47 Dose: 20 mg Hydromorphone HCl (Dilaudid) 0.25 mg IVPUSH Q2H PRN PRN Reason: Pain (severe 7-10) Sodium Chloride (Normal Saline) 1,000 mls @ 999 mls/hr IV ONETIME ONE Stop: 02/20/18 18:24 Last Admin: 02/20/18 17:45 Dose: 999 mls/hr Levetiracetam 1,500 mg/ Sodium (Chloride) 115 mls @ 400 mls/hr IV ONETIME ONE Stop: 02/20/18 23:01 Last Admin: 02/20/18 23:14 Dose: 400 mls/hr Phenytoin Sodium 200 mg/ (Sodium Chloride) 104 mls @ 416 mls/hr IV ONETIME ONE Stop: 02/20/18 22:58 Last Admin: 02/20/18 23:39 Dose: 416 mls/hr Promethazine HCl 12.5 mg/ (Sodium Chloride) 50.5 mls @ 100 mls/hr IV Q6H PRN PRN Reason: Nausea/Vomiting Fosphenytoin Sodium 3,000 mg. (pe/ Sodium Chloride) 110 mls @ 150 mls/hr IV NOW ONE Stop: 02/21/18 19:39 Last Admin: 02/21/18 20:15 Dose: Not Given Levetiracetam 1,500 mg/ Sodium (Chloride) 115 mls @ 400 mls/hr IV ONETIME ONE Stop: 02/21/18 19:40 Last Admin: 02/21/18 20:10 Dose: 400 mls/hr Magnesium Sulfate 2 gm/ Premix 50 mls @ 25 mls/hr IV ONETIME ONE Stop: 02/22/18 10:59 Last Admin: 02/22/18 09:11 Dose: 25 mls/hr Phenytoin Sodium 1,530 mg/ (Sodium Chloride) 130.6 mls @ 130.6 mls/hr IV ONETIME ONE Stop: 02/23/18 07:34 Last Admin: 02/23/18 10:00 Dose: Not Given Phenytoin Sodium 1,500 mg/ (Sodium Chloride) 130 mls @ 130 mls/hr IV ONETIME ONE Stop: 02/23/18 09:59 Last Admin: 02/23/18 09:09 Dose: 130 mls/hr Phenytoin Sodium 1,500 mg/ (Sodium Chloride) 100 mls @ 100 mls/hr IV Q8H PRN PRN Reason: SEIZURES Phenytoin Sodium 1,500 mg/ (Sodium Chloride) 130 mls @ 130 mls/hr IV ONETIME ONE Stop: 02/24/18 11:14 Last Admin: 02/24/18 10:29 Dose: 130 mls/hr Magnesium Sulfate 2 gm/ Premix 50 mls @ 25 mls/hr IV ONETIME ONE Stop: 02/25/18 16:27 Last Admin: 02/25/18 16:36 Dose: 25 mls/hr Phenytoin Sodium 750 mg/ (Sodium Chloride) 65 mls @ 200 mls/hr IV ONETIME ONE Stop: 02/25/18 14:48 Last Admin: 02/25/18 16:14 Dose: 200 mls/hr Levetiracetam 2,000 mg/ Sodium (Chloride) 120 mls @ 400 mls/hr IV ONETIME ONE Stop: 02/26/18 15:09 Last Admin: 02/26/18 15:36 Dose: 400 mls/hr Ketorolac Tromethamine (Toradol) 15 mg IVPUSH ONETIME ONE Stop: 02/20/18 18:37 Last Admin: 02/20/18 18:44 Dose: 15 mg Levetiracetam (Keppra) 1,500 mg PO BID [facility] Last Admin: 03/03/18 08:14 Dose: 1,500 mg Levothyroxine Sodium (Levothyroxine) 75 mcg PO ACBREAKFAST [facility] Last Admin: 03/03/18 05:45 Dose: 75 mcg Lorazepam (Ativan) 1 mg IVPUSH ONETIME ONE Stop: 02/20/18 17:24 Last Admin: 02/20/18 17:47 Dose: 1 mg Lorazepam (Ativan) 1 mg IVPUSH ONETIME ONE Stop: 02/20/18 22:51 Last Admin: 02/20/18 23:14 Dose: 1 mg Lorazepam (Ativan) 1 mg PO Q8H PRN PRN Reason: Seizures Last Admin: 02/21/18 13:30 Dose: 1 mg Lorazepam (Ativan) 1 mg PO ASDIRECTED PRN PRN Reason: Seizures Lorazepam (Ativan) 2 mg IVPUSH Q4H PRN PRN Reason: Seizures Last Admin: 02/26/18 14:49 Dose: 2 mg Lorazepam (Ativan) 1 - 3 mg IV Q4H PRN; Protocol PRN Reason: Withdrawal Symptoms Lorazepam (Ativan) 5 mg IVPUSH ONETIME ONE Stop: 02/21/18 19:09 Last Admin: 02/21/18 19:16 Dose: 5 mg Magnesium Oxide (Magnesium Oxide) 400 mg PO ONETIME ONE Stop: 02/21/18 23:46 Last Admin: 02/21/18 23:36 Dose: Not Given Magnesium Oxide (Magnesium Oxide) 400 mg PO ONETIME ONE Stop: 03/02/18 09:24 Last Admin: 03/02/18 10:14 Dose: 400 mg Magnesium Sulfate (Pharmacy To Dose - Magnesium Replacement) 1 dose .XX ASDIRECTED [facility] Metoprolol Tartrate (Lopressor) 5 mg IVPUSH Q4H PRN PRN Reason: Tachycardia Ondansetron HCl (Zofran) 4 mg IV Q6H PRN PRN Reason: Nausea/Vomiting Last Admin: 03/03/18 06:48 Dose: 4 mg Phenytoin Sodium (Phenytoin) 200 mg PO BEDTIME [facility] Last Admin: 02/21/18 20:28 Dose: Not Given Phenytoin Sodium (Phenytoin) 100 mg PO DAILY [facility] Last Admin: 02/21/18 09:14 Dose: Not Given Phenytoin Sodium (Phenytoin) 300 mg PO BEDTIME [facility] Last Admin: 02/22/18 20:46 Dose: Not Given Phenytoin Sodium (Phenytoin) 300 mg PO BEDTIME [facility] Phenytoin Sodium (Phenytoin) 300 mg PO BID [facility] Last Admin: 02/27/18 08:27 Dose: 300 mg Phenytoin Sodium (Phenytoin) 100 mg PO BEDTIME [facility] Polyethylene Glycol (Miralax) 17 gm PO DAILY PRN PRN Reason: Constipation Potassium Chloride (Pharmacy To Dose - Potassium Replacement) 1 dose .XX ASDIRECTED JESSICA Senna/Docusate Sodium (Senna Plus) 1 tab PO BID PRN PRN Reason: Constipation Sodium Chloride (Saline Flush) 10 ml FLUSH ASDIRECTED PRN PRN Reason: Keep Vein Open Last Admin: 02/20/18 17:48 Dose: 10 ml Temazepam (Restoril) 15 mg PO BEDTIME PRN PRN Reason: Insomnia Last Admin: 02/25/18 20:23 Dose: 15 mg Temazepam (Restoril) 30 mg PO BEDTIME PRN PRN Reason: Insomnia Last Admin: 02/27/18 20:34 Dose: 30 mg - Exam Quality Assessment: Reports: DVT Prophylaxis General: Reports: Alert, Oriented, Cooperative, No Acute Distress HEENT: Reports: Pupils Equal, Pupils Reactive, EOMI, Mucous Membr. Moist/Lignite Neck: Reports: Supple Lungs: Reports: Clear to Auscultation, Normal Respiratory Effort Cardiovascular: Reports: Regular Rate, Regular Rhythm GI/Abdominal Exam: Normal Bowel Sounds, Soft, Non-Tender, No Organomegaly, No Distention, No Abnormal Bruit, No Mass, Pelvis Stable (Female) Exam: Deferred Rectal (Female) Exam: Deferred Back Exam: Reports: Normal Inspection, Full Range of Motion Extremities: Normal Inspection, Normal Range of Motion, Non-Tender, No Pedal Edema, Normal Capillary Refill Skin: Reports: Warm, Dry, Intact Neurological: Reports: No New Focal Deficit, Cranial Nerves Intact (grossly) Psy/Mental Status: Reports: Alert, Normal Affect, Normal Mood
[2018-03-03] MEDS ORDERED: Phenytoin 100 MG Cap.ER PO SCH (21:00)
== END 2018-03-03 11:00 | DRG 101 ==
LOC: JD.ED 16:47 → JD.MS 02-21 01:04 → JD.ICU 02-23 06:02
PROVIDERS: ADMIT Internal Medicine; ATTEND Internal Medicine Cardiovascular Disease
DX: G40.909 Epilepsy, unspecified, not intractable, without status epilepticus (principal); R51 Headache; G40.401 Other generalized epilepsy and epileptic syndromes, not intractable, with status epilepticus; Z68.45 Body mass index [BMI] 70 or greater, adult; G47.30 Sleep apnea, unspecified; G40.409 Other generalized epilepsy and epileptic syndromes, not intractable, without status epilepticus; E03.9 Hypothyroidism, unspecified; G83.84 Todd's paralysis (postepileptic); E66.01 Morbid (severe) obesity due to excess calories; F32.9 Major depressive disorder, single episode, unspecified; G89.4 Chronic pain syndrome; Z88.8 Allergy status to other drugs, medicaments and biological substances; Z79.899 Other long term (current) drug therapy; H54.7 Unspecified visual loss; Z85.841 Personal history of malignant neoplasm of brain; Z98.890 Other specified postprocedural states; Z91.040 Latex allergy status; Z92.21 Personal history of antineoplastic chemotherapy; E83.42 Hypomagnesemia; G47.33 Obstructive sleep apnea (adult) (pediatric); Z91.14 Patient's other noncompliance with medication regimen
CPT/HCPCS: 36415; 80053; 83735; 85025; 96374; 96375; 96376; 99285; J1165; J1885; J1953; J2060 ×2; J7030 ×2; J7040; J7050; 80048; 80177; 80185; 81001; 92610-GN; 95816; 97110-GP; 97112-GO; 97116-GP; 97162-GP; 97166-GO; 97167-GO; 97530-GO; 97530-GP; 99284; A9270-GY; J0360; J1650; J2405; J3475